=== PATIENT | male | born 1960 | race Caucasian/White ===

== ENCOUNTER 2017-01-01 12:35 | Day surgery (SDC) | payer MEDICARE, OTHER ==
[~2017-01-01 12:35] MED LIST: AMOX500T2 PO; DEXA.5 PO; GLUCTAB PO; HYDR-3580 PO; LEVE500 PO; LEVEMIR SC; Z.0.WALKERFRONT
[2017-01-01 13:29] VITALS: BP 144/93; PULSE 97; RESP 18; TEMP 99.1; O2SAT 99
--- NOTE | 2017-01-01 14:44 | RADRPT ---
EXAM DATE/TIME: 01/01/2017 13:07 [facility] COMPARISON: No previous studies available for comparison. EXTERNAL COMPARISON: [facility], US THYROID, Dec 17 2016. [facility], PET/CT - TUMOR WHOLE BODY, November. [facility], PET/CT - TUMOR WHOLE BODY, August 06, 2016. INDICATIONS : Right thyroid mass. MEDICAL HISTORY : Melanoma; metastatic. Diabetic. SURGICAL HISTORY : Left axillary lymphadenectomy. Right tib/fib ORIF. Brain surgery. ENCOUNTER: Initial ACUITY: 1 month PAIN SCORE: 7/10 LOCATION: Right neck ORGAN: Right thyroid. SPECIMENS: Three fine needle aspirate(s) submitted for pathologic evaluation. DEVICE: 22 gauge needle Post procedure scanning reveals no hematoma or other complication. The possibility does exist that the tissue obtained will be non-diagnostic. If the sample is non-jensen gnostic a repeat biopsy or surgical biopsy may need to be performed. TECHNIQUE: 1. Ultrasound guidance for needle biopsy. 2. Needle biopsy. The risks, benefits, and alternatives to ultrasound guided needle biopsy were explained to the patien t in detail including the risk of bleeding and infection. Written and verbal informed consent was ob tained. With the patient on the ultrasound table, images were obtained. The dominant right thyroid nodule wit hin the mid and lower pole was identified and targeted during the aspiration. This measures 4.5 x 3.8 x 3.0 cm. Overlying skin was prepped and draped in the usual sterile fashion and Lidocaine was utili zed as a local anesthetic. A needle was advanced into the identified target and the number of specimens as above obtained and enriquez bmitted for pathologic evaluation. The patient tolerated the procedure well and left the ultrasound suite in stable condition. CONCLUSION: Uncomplicated ultrasound guided fine needle aspiration of the right dominant thyroid nodule. Hiro Wallace Jr., MD on January 01, 2017 at 14:41 Board Certified Radiologist. This report was verified electronically.
[2017-01-01] MEDS ORDERED: SODIUM BICARBONATE 8.4% INJ 50 ML ONE (15:10)
[2017-01-01] MEDS ORDERED: LIDOCAINE HCL 1% PF 30 ML VIAL ONE (15:10)
== END 2017-01-01 15:00 | disposition home or self-care (01) ==
LOC: HRAD 12:35 → HRIP 12:36 → HRAD 15:00
PROVIDERS: ATTEND Specialist
DX: E04.1 Nontoxic single thyroid nodule (principal); E11.9 Type 2 diabetes mellitus without complications; C77.3 Secondary and unspecified malignant neoplasm of axilla and upper limb lymph nodes; C79.31 Secondary malignant neoplasm of brain; Z85.820 Personal history of malignant melanoma of skin
CPT/HCPCS: 10022; 76942; 88172; 88173; C1729

== ENCOUNTER 2017-04-25 13:56 | Inpatient (IN) | payer MEDICARE, OTHER ==
[~2017-04-25] VITALS: Ht 185.4 cm; Wt 68.0 kg
[2017-04-25] VITALS (8 sets, daily range): BP systolic 94–155; BP diastolic 66–102; PULSE 102–139; RESP 18–25; TEMP 98.3–99.2; O2SAT 95–100
[2017-04-25] MEDS ORDERED: PIPERACIL-TAZO 4.5 GM PREMIX 100 ML IV STA (14:04)
[2017-04-25] MEDS ORDERED: SODIUM CHLOR 0.9% 1000 ML INJ 400 ML IV ONE (14:04)
[2017-04-25] MEDS ORDERED: VANCOMYCIN INJ 1,000 MG in SODIUM CHLOR 0.9% 250 ML INJ 250 ML IV STA (14:04)
[2017-04-25] MEDS ORDERED: SODIUM CHLOR 0.9% 1000 ML INJ 1,000 ML IV ONE ×2 (14:04)
[2017-04-25] MEDS ORDERED: MARI5CAP PO (14:29)
[2017-04-25] MEDS ORDERED: REME15TA PO (14:29)
[2017-04-25] MEDS ORDERED: OXYC-259 PO ×2 (14:29)
[2017-04-25] MEDS ORDERED: METF-382 PO (14:29)
[2017-04-25] MEDS ORDERED: MEGE40S PO (14:29)
--- NOTE | 2017-04-25 14:36 | RADRPT ---
EXAM DATE/TIME: 04/25/2017 14:26 [facility] COMPARISON: CHEST SINGLE AP, July 24, 2016, 9:52. INDICATIONS : Fever. Congestion. MEDICAL HISTORY : None. SURGICAL HISTORY : None. ENCOUNTER: Initial ACUITY: 2 days PAIN SCORE: 7/10 LOCATION: Bilateral chest FINDINGS: A single view of the chest demonstrates the lungs to be symmetrically aerated without evidence of mas s, infiltrate or effusion. The cardiomediastinal contours are unremarkable. Old left rib fractures are again noted. CONCLUSION: No evidence of acute cardiopulmonary disease. Evelio Frankel MD on April 25, 2017 at 14:32 Board Certified Radiologist. This report was verified electronically.
[2017-04-25 14:40] LABS: AUTOMATED NEUTROPHIL # 10.4 TH/MM3 (1.8-7.7); BASOPHIL % 0.2 % (0.0-2.0); EOSINOPHIL # 0.1 TH/MM3 (0-0.4); EOSINOPHIL % 0.4 % (0.0-4.0); HEMATOCRIT 56.9 % (39.0-51.0); HEMO FLAGS DIFF FINAL; LYMPH % 13.5 % (9.0-44.0); LYMPHOCYTE # 1.9 TH/MM3 (1.0-4.8); MEAN CELL VOLUME 92.3 FL (80.0-100.0); MEAN CORPUSCULAR HEMOGLOBIN 29.1 PG (27.0-34.0); MEAN CORPUSCULAR HGB CONC 31.5 % (32.0-36.0); MONO % 11.4 % (0.0-8.0); NEUT % 74.5 % (16.0-70.0); PLATELET COUNT 150 TH/MM3 (150-450); RED BLOOD COUNT 6.17 MIL/MM3 (4.50-5.90); RED CELL DISTRIBUTION WIDTH 14.9 % (11.6-17.2)
[2017-04-25] MEDS ORDERED: MORPHINE SULFATE 4 MG/ML INJ IV PUSH ONE (14:45)
[2017-04-25 14:57] LABS: ANION GAP 24 MEQ/L (5-15); AST (GOT) 8 U/L (15-37); BICARBONATE LESS THAN 5.0 MEQ/L (21.0-32.0); BLOOD UREA NITROGEN 7 MG/DL (7-18); CHLORIDE 107 MEQ/L (98-107); GLOMERULAR FILTRATION RATE 71 ML/MIN (>89); POTASSIUM 4.3 MEQ/L (3.5-5.1); SODIUM (NA) 136 MEQ/L (136-145)
[2017-04-25 14:58] LABS: ALT (GPT) 17 U/L (12-78)
[2017-04-25 15:00] LABS: ALKALINE PHOSPHATASE 48 U/L (45-117); TOTAL BILIRUBIN ADULT 0.7 MG/DL (0.2-1.0)
[2017-04-25] MEDS ORDERED: SODIUM CHLOR 0.9% 1000 ML INJ 1,000 ML IV SCH ×2 (15:04→16:09)
[2017-04-25] MEDS ORDERED: DEXT 5%-NACL 0.9% 1000 ML INJ 1,000 ML IV SCH (15:04)
[2017-04-25] MEDS ORDERED: SODIUM BICARBONATE 8.4% SOLN 50 MEQ/50 ML VIAL IV PRN ×4 (15:15→16:15)
[2017-04-25] MEDS ORDERED: INSULIN REGULAR (IV INFUSION) 100 UNITS in SODIUM CHLORIDE 0.9% INJ 99 ML IV SCH ×2 (15:15→17:00)
[2017-04-25] MEDS ORDERED: POTASSIUM CHLOR 20 MEQ PREMIX 100 ML IV PRN ×11 (15:15→16:15)
[2017-04-25] MEDS ORDERED: POTASSIUM CHLOR 40 MEQ PREMIX 100 ML IV PRN ×4 (15:15→16:15)
[2017-04-25] MEDS ORDERED: INSULIN HUMAN REGULAR 1,000 UNITS/10 ML VIAL IV PUSH ONE (15:15)
[2017-04-25] MEDS ORDERED: SODIUM PHOSPHATE INJ 15 MMOL in SODIUM CHLORIDE 0.9% INJ 100 ML IV PRN ×2 (15:15→16:15)
[2017-04-25 15:26] LABS: BLOOD GAS BASE EXCESS -24.4 mmol/L (-2-2); BLOOD GAS CARBOXYHEMOGLOBIN 1.2 % (0-4); BLOOD GAS HCO3 4 mmol/L (22-26); BLOOD GAS METHEMOGLOBIN 0.8 % (0-2); BLOOD GAS O2 HGB SATURATION 96 % (90-100); BLOOD GAS PCO2 11 mmHg (38-42); BLOOD GAS PO2 118 mmHG (61-120); CRITICAL VALUE YES; FIO2 21 %; OXYGEN DEVICE RA; TEMP CORR TO 98.6
[2017-04-25 15:27] LABS: DRAW SITE LT RADIAL; NUMBER OF ARTERIAL PUNCTURES 1; STAT YES; ULNAR PULSE PRESENT
--- NOTE | 2017-04-25 15:33 | PD ---
HPI Chief Complaint: General Weakness Time Seen by Provider: 14:04 Travel History International Travel<30 days: No Contact w/Intl Traveler<30days: No Traveled to known affect area: No History of Present Illness HPI 56-year-old male came to the emergency room with history of back pain. Patient seems very debilitated and in moderate distress. He told me this has been going on for past 3 days. Patient was sent by car in 1991 and since then he has had back issues. No history of trauma as far as I know. No history of instrumentation in the recent past on the back. His rectal temperature was 99.5. Patient was tachycardic in 140s. Given his distress and mental status he was not a reliable historian. He kept saying that his is on her way and would give more information. [facility] Past Medical History Narrative Medical List of his past medical, surgical, social and family history was reviewed from the nursing note. Arthritis: No Asthma: No Anxiety: Yes Depression: Yes Heart Rhythm Problems: No Cancer: Yes (skin cancer) Cardiovascular Problems: No High Cholesterol: No Chest Pain: No Congestive Heart Failure: No COPD: No Cerebrovascular Accident: No Diabetes: Yes (LEVEMIR FLEX PEN) Patient Takes Glucophage: Yes Diminished Hearing: No Endocrine: Yes Gastrointestinal Disorders: No Genitourinary: No Headaches: Yes Hypertension: No Immune Disorder: No Implanted Vascular Access Dvce: Yes Musculoskeletal: Yes (CHRONIC NECK/BACK PAIN) Neurologic: Yes Psychiatric: Yes Reproductive: No Respiratory: Yes Migraines: No Seizures: No Sleep Apnea: No Past Surgical History Abdominal Surgery: Yes (skin cancer removed from abdomen) AICD: No Arteriovenous Shunt: No Body Medical Devices: right leg ayaka/screws Ear Surgery: No Endocrine Surgery: No Eye Surgery: No Genitourinary Surgery: No Gynecologic Surgery: No Insulin Pump: No Joint Replacement: No Neurologic Surgery: Yes (CRANIOTOMY ) Oral Surgery: Yes (TEETH PULLED) Pacemaker: No Other Surgery: Yes Social History Alcohol Use: No Tobacco Use: No Substance Use: No Allergies-Medications (Allergen,Severity, Reaction): Coded Allergies: No Known Allergies (Verified , 07/24/16) Comments No known drug allergies. Reported Meds & Prescriptions Reported Meds & Active Scripts Active Reported Metformin ER (Metformin HCl) 1,000 Mg Isabel 1,000 Mg PO BID Oxycontin (Oxycodone HCl) 10 Mg Tab 10 Mg PO DAILY (MIDDAY) Oxycontin (Oxycodone HCl) 10 Mg Tab 20 Mg PO BID IN THE AM & PM Megace Liq (Megestrol Acetate) 40 Mg/Ml Susp 400 Mg PO DAILY Remeron (Mirtazapine) 15 Mg Tab 15 Mg PO HS Marinol (Dronabinol) 5 Mg Cap 5 Mg PO BID Narrative Medication List of his home medications reviewed from the nursing note. Review of Systems Except as stated in HPI: all other systems reviewed are Neg Physical Exam Narrative GENERAL: Confused, moderate to significant distress, cachectic SKIN: Focused skin assessment warm/dry. HEAD: Atraumatic. Normocephalic. EYES: Pupils equal and round. No scleral icterus. No injection or drainage. ENT: No nasal bleeding or discharge. Dry mucous membrane, coated tongue, halitosis NECK: Trachea midline. No JVD. CARDIOVASCULAR: Regular rate and rhythm. Tachycardia. No murmur appreciated. RESPIRATORY: No accessory muscle use. Clear to auscultation. Breath sounds equal bilaterally. GASTROINTESTINAL: Abdomen soft, non-tender, nondistended. Hepatic and splenic margins not palpable. MUSCULOSKELETAL: No obvious deformities. No clubbing. No cyanosis. No edema. Point tenderness at T10 level. NEUROLOGICAL: Confused, GCS of 14. No obvious cranial nerve deficits. Motor grossly within normal limits. Normal speech. PSYCHIATRIC: Appropriate mood and affect; insight and judgment normal. Data Data Last Documented VS Vital Signs Date Time Temp Pulse Resp B/P Pulse Ox O2 Delivery O2 Flow Rate FiO2 04/25/17 14:50 130 18 155/102 95 Nasal Cannula 2 04/25/17 14:10 99.2 Orders Complete Blood Count With Diff (04/25/17 14:04) Comprehensive Metabolic Panel (04/25/17 14:04) Lactic Acid Sepsis Protocol (04/25/17 14:04) Urinalysis - C+S If Indicated (04/25/17 14:04) Blood Culture (04/25/17 14:04) Chest, Single Ap (04/25/17 14:04) Blood Glucose (04/25/17 14:04) Ecg Monitoring (04/25/17 14:04) Iv Access Insert/Monitor (04/25/17 14:04) Oximetry (04/25/17 14:04) Oxygen Administration (04/25/17 14:04) Vancomycin Inj (Vancomycin Inj) (04/25/17 14:04) Piperacil-Tazo 4.5 Gm Premix (Zosyn 4.5 (04/25/17 14:04) Sodium Chlor 0.9% 1000 Ml Inj (Ns 1000 M (04/25/17 14:04) Sodium Chlor 0.9% 1000 Ml Inj (Ns 1000 M (04/25/17 14:04) Sodium Chlor 0.9% 1000 Ml Inj (Ns 1000 M (04/25/17 14:04) Electrocardiogram (04/25/17 ) Ct Thor Spine W Iv Contrast (04/25/17 ) Morphine Inj (Morphine Inj) (04/25/17 14:45) Arterial Blood Gas (Abg) (04/25/17 ) Charger Tester / Telemetry [id number].[id number] (04/25/17 15:04) ^ Insert Iv (04/25/17 15:04) Diet Npo (04/25/17 Dinner) Sodium Chlor 0.9% 1000 Ml Inj (Ns 1000 M (04/25/17 15:04) Dext 5%-Nacl 0.9% 1000 Ml Inj (D5w-Ns 10 (04/25/17 15:04) Insulin Human Regular Inj (Novolin R Inj (04/25/17 15:15) Insulin Regular (Iv Infusion) (Novolin R (04/25/17 15:15) Potassium Chlor 40 Meq Premix (Kcl 40 Me (04/25/17 15:15) Potassium Chlor 40 Meq Premix (Kcl 40 Me (04/25/17 15:15) Potassium Chlor 20 Meq Premix (Kcl 20 Me (04/25/17 15:15) Potassium Chlor 20 Meq Premix (Kcl 20 Me (04/25/17 15:15) Potassium Chlor 20 Meq Premix (Kcl 20 Me (04/25/17 15:15) Potassium Chlor 20 Meq Premix (Kcl 20 Me (04/25/17 15:15) Potassium Chlor 20 Meq Premix (Kcl 20 Me (04/25/17 15:15) Potassium Chlor 20 Meq Premix (Kcl 20 Me (04/25/17 15:15) Sodium Bicarbonate 8.4% Inj (Sodium Bica (04/25/17 15:15) Sodium Bicarbonate 8.4% Inj (Sodium Bica (04/25/17 15:15) Sodium Phosphate Inj (Sodium Phosphate I (04/25/17 15:15) Hemoglobin (Hgb) A1c (04/25/17 15:04) Basic Metabolic Panel (Bmp) (04/25/17 20:04) Basic Metabolic Panel (Bmp) (04/26/17 02:04) Basic Metabolic Panel (Bmp) (04/26/17 08:04) Magnesium (Mg) (04/25/17 20:04) Magnesium (Mg) (04/26/17 02:04) Magnesium (Mg) (04/26/17 08:04) Phosphorus (Po4) (04/25/17 20:04) Phosphorus (Po4) (04/26/17 02:04) Phosphorus (Po4) (04/26/17 08:04) Beta Hydroxybutyrate (Acetone) (04/26/17 02:04) Admit Order (Ed Use Only) (04/25/17 15:33) Labs Laboratory Tests Test 04/25/17 04/25/17 04/25/17 14:06 14:16 15:18 Lactic Acid Level 3.9 mmol/L White Blood Count 14.0 TH/MM3 Red Blood Count 6.17 MIL/MM3 Hemoglobin 17.9 GM/DL Hematocrit 56.9 % Mean Corpuscular Volume 92.3 FL Mean Corpuscular Hemoglobin 29.1 PG Mean Corpuscular Hemoglobin 31.5 % Concent Red Cell Distribution Width 14.9 % Platelet Count 150 TH/MM3 Mean Platelet Volume 8.5 FL Neutrophils (%) (Auto) 74.5 % Lymphocytes (%) (Auto) 13.5 % Monocytes (%) (Auto) 11.4 % Eosinophils (%) (Auto) 0.4 % Basophils (%) (Auto) 0.2 % Neutrophils # (Auto) 10.4 TH/MM3 Lymphocytes # (Auto) 1.9 TH/MM3 Monocytes # (Auto) 1.6 TH/MM3 Eosinophils # (Auto) 0.1 TH/MM3 Basophils # (Auto) 0.0 TH/MM3 CBC Comment DIFF FINAL Differential Comment Sodium Level 136 MEQ/L Potassium Level 4.3 MEQ/L Chloride Level 107 MEQ/L Carbon Dioxide Level LESS THAN 5.0 MEQ/L Anion Gap 24 MEQ/L Blood Urea Nitrogen 7 MG/DL Creatinine 1.07 MG/DL Estimat Glomerular Filtration 71 ML/MIN Rate Random Glucose 340 MG/DL Calcium Level 10.3 MG/DL Total Bilirubin 0.7 MG/DL Aspartate Amino Transf 8 U/L (AST/SGOT) Alanine Aminotransferase 17 U/L (ALT/SGPT) Alkaline Phosphatase 48 U/L Total Protein 7.7 GM/DL Albumin 3.9 GM/DL Blood Gas Puncture Site LT RADIAL Blood Gas Patient Temperature 98.6 Blood Gas HCO3 4 mmol/L Blood Gas Base Excess -24.4 mmol/L Blood Gas Oxygen Saturation 96 % Arterial Blood pH 7.15 Arterial Blood Partial 11 mmHg Pressure CO2 Arterial Blood Partial 118 mmHG Pressure O2 Arterial Blood Oxygen Content 23.0 Vol % Arterial Blood 1.2 % Carboxyhemoglobin Arterial Blood Methemoglobin 0.8 % Blood Gas Hemoglobin 17.0 G/DL Oxygen Delivery Device RA Blood Gas Inspired Oxygen 21 % MDM Medical Decision Making Medical Screen Exam Complete: Yes Emergency Medical Condition: Yes Medical Record Reviewed: Yes Interpretation(s) Twelve-lead EKG was reviewed by me. Normal sinus rhythm, normal axis, tachycardia. Heart rate of 1 45 bpm. Differential Diagnosis Sepsis, dehydration, discitis, osteomyelitis, UTI, pneumonia Narrative Course 3:32 PM blood test results of back and patient is severely metabolic acidotic. Blood gas also Percocet. Chest x-rays within normal limit. I've ordered a CT scan of his thoracic spine with IV contrast to rule out any infection. Blood test is also suggestive of DKA. Patient has a single peripheral IV access at this point. He is a difficult IV peripheral access. I discussed with him about the need for central line and patient has given me a verbal consent. His in the room and updated about the condition. Patient will require to be admitted to the ICU. I've ordered IV vancomycin and Zosyn for broad spectrum coverage. All her questions were answered to the best of my ability. I spoke with Dr. Merino from ICU who has accepted the case. Critical Care Narrative Aggregate critical care time was 75 minutes. Time to perform other separately billable procedures was not included in the critical care time. My time did not include minutes spent treating any other patients simultaneously or on activities that did not directly contribute to the patient's treatment. The services I provided to this patient were to treat and/or prevent clinically significant deterioration that could result in: Metabolic acidosis, lactic acidosis, sepsis, altered mental status I provided critical care services requiring my management, as noted below: Chart data review, documentation time, medication orders and management, vital sign assessments/reviewing monitor data, ordering and reviewing lab tests, ordering and interpreting/reviewing x-rays and diagnostic studies, care of the patient and discussion of the patient with the admitting physicians. Procedures Procedure Narrative CENTRAL VENOUS LINE: The site was prepped with Betadine and sterilely draped. It was infiltrated with 1% lidocaine plain. The deep vein was cannulated using normal Seldinger technique. A triple lumen central line was placed in the right IJ site and secured with simple interrupted suture. The site was sterilely dressed. The patient tolerated the procedure well. Emergency department US guided peripheral IV was performed with patient consent. Linear probe was used in the transverse views of the peripheral vein to assist with vascular access. The central line was ultrasound guided. EKG Prior to Arrival: No Physician Communication Physician Communication Dr. Merino Diagnosis Primary Impression: Sepsis Qualified Code: A41.9 - Sepsis, due to unspecified organism Additional Impressions: Altered mental status Qualified Code: R41.0 - Disorientation Lactic acidosis Dehydration DKA (diabetic ketoacidoses) Qualified Code: E13.10 - Diabetic ketoacidosis without coma associated with other specified diabetes mellitus Metabolic acidosis Admitting Information Admitting Physician Requests: Admit Lizzeth Romero MD Apr 25, 2017 15:[address] Merino from ICU who has accepted the case. Critical Care Narrative Aggregate critical care time was 75 minutes. Time to perform other separately billable procedures was not included in the critical care time. My time did not include minutes spent treating any other patients simultaneously or on activities that did not directly contribute to the patient's treatment. The services I provided to this patient were to treat and/or prevent clinically significant deterioration that could result in: Metabolic acidosis, lactic acidosis, sepsis, altered mental status I provided critical care services requiring my management, as noted below: Chart data review, documentation time, medication orders and management, vital sign assessments/reviewing monitor data, ordering and reviewing lab tests, ordering and interpreting/reviewing x-rays and diagnostic studies, care of the patient and discussion of the patient with the admitting physicians. Procedures Procedure Narrative CENTRAL VENOUS LINE: The site was prepped with Betadine and sterilely draped. It was infiltrated with 1% lidocaine plain. The deep vein was cannulated using normal Seldinger technique. A triple lumen central line was placed in the right IJ site and secured with simple interrupted suture. The site was sterilely dressed. The patient tolerated the procedure well. Emergency department US guided peripheral IV was performed with patient consent. Linear probe was used in the transverse views of the peripheral vein to assist with vascular access. The central line was ultrasound guided. EKG Prior to Arrival: No Physician Communication Physician Communication Dr. Merino Diagnosis Primary Impression: Sepsis Qualified Code: A41.9 - Sepsis, due to unspecified organism Additional Impressions: Altered mental status Qualified Code: R41.0 - Disorientation Lactic acidosis Dehydration DKA (diabetic ketoacidoses) Qualified Code: E13.10 - Diabetic ketoacidosis without coma associated with other specified diabetes mellitus Metabolic acidosis Admitting Information Admitting Physician Requests: Admit Lizzeth Romero MD Apr 25, 2017 15:33
[2017-04-25] MEDS ORDERED: LIDOCAINE HCL 1% 50 ML VIAL INFIL ONE (16:00)
[2017-04-25] MEDS ORDERED: MISCELLANEOUS NURSING INFORMATION XX SCH (16:15)
[2017-04-25] MEDS ORDERED: CHLORHEXIDINE GLUCONATE 2 % 1 PACK (2 CLOTHS) TOP PRN (16:15)
[2017-04-25] MEDS ORDERED: Vancomycin Consult Pharmacy 1 EA OTHER SCH (16:15)
[2017-04-25 16:29] LABS: LACTIC ACID GHOST NOT REPORTABLE
--- NOTE | 2017-04-25 16:34 | RADRPT ---
EXAM DATE/TIME: 04/25/2017 16:26 [facility] COMPARISON: CHEST SINGLE AP, April 25, 2017, 14:26. INDICATIONS : Evaluate for central line placement. MEDICAL HISTORY : None. SURGICAL HISTORY : None. ENCOUNTER: Subsequent ACUITY: 1 day PAIN SCORE: 0/10 LOCATION: chest FINDINGS: A single view of the chest demonstrates right central line in superior vena cava. Heart size normal. Tortuous aorta. Remote left rib fractures. No focal consolidation or significant effusion. No pneumot horax. CONCLUSION: 1. Right central line in superior vena cava. No pneumothorax. No focal consolidation. Terence Fletcher MD on April 25, 2017 at 16:30 Board Certified Radiologist. This report was verified electronically.
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
[2017-04-25] MEDS ORDERED: IOHEXOL 350 MG/ML 10 ML VIAL (for RAD DIAG) IV ONE (17:17)
[2017-04-25 17:44] LABS: BETA-HYDROXYBUTYRATE 8.79 MMOL/L (0.00-0.39)
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
[2017-04-25 20:40] LABS: ANION GAP 19 MEQ/L (5-15); BICARBONATE 8.3 MEQ/L (21.0-32.0); BLOOD UREA NITROGEN 5 MG/DL (7-18); CHLORIDE 112 MEQ/L (98-107); GLOMERULAR FILTRATION RATE 107 ML/MIN (>89); MAGNESIUM 1.8 MG/DL (1.5-2.5); POTASSIUM 3.5 MEQ/L (3.5-5.1); SODIUM (NA) 139 MEQ/L (136-145)
[2017-04-25] MEDS: DEXT 5%-NACL 0.9% 1000 ML INJ 1,000 ML IV SCH (20:40)
[2017-04-25] MEDS: SODIUM CHLOR 0.9% 1000 ML INJ 1,000 ML IV SCH (20:40)
[2017-04-25] MEDS: MIRTAZAPINE 15 MG TAB PO SCH (20:41)
[2017-04-25] MEDS: PIPERACIL-TAZO 4.5 GM PREMIX 100 ML IV SCH (21:27)
[2017-04-25] MEDS: POTASSIUM CHLOR 20 MEQ PREMIX 100 ML IV PRN ×2 (21:28→22:50)
[2017-04-26] VITALS (15 sets, daily range): BP systolic 104–120; BP diastolic 67–74; PULSE 99–109; RESP 16–24; TEMP 98–100.1; O2SAT 95–100
[2017-04-26 00:31] LABS: BLOOD, URINE TRACE (NEG); GLUCOSE,URINE 1000 mg/dL (NEG); KETONE, URINE 150 mg/dL (NEG); MUCUS URINE FEW /lpf (OCC); NITRITE,URINE NEG (NEG); SQUAMOUS EPITHELIAL CELL URINE <1 /hpf (0-5); URIC ACID CRYSTALS, URINE RARE /hpf; URINE COLOR LIGHT-YELLOW (YELLW/STRAW)
[2017-04-26 00:33] LABS: COMMENT (UR) CATH-CULT NOT IND; CULTURE IF INDICATED CATH CULTURE NOT IND
[2017-04-26] MEDS: SODIUM CHLOR 0.9% 1000 ML INJ 1,000 ML IV SCH ×5 (01:54→15:05)
[2017-04-26] MEDS: DEXT 5%-NACL 0.9% 1000 ML INJ 1,000 ML IV SCH (01:54)
[2017-04-26] MEDS: VANCOMYCIN 1,500 MG/NS 500 ML IV SCH ×4 (01:54→14:19)
[2017-04-26] MEDS ORDERED: VANCOMYCIN 1,000 MG/NS 250 ML IV SCH ×2 (02:00)
[2017-04-26 02:29] LABS: BICARBONATE 15.1 MEQ/L (21.0-32.0); MAGNESIUM 1.7 MG/DL (1.5-2.5); POTASSIUM 3.5 MEQ/L (3.5-5.1)
[2017-04-26 02:33] LABS: BETA-HYDROXYBUTYRATE 1.01 MMOL/L (0.00-0.39)
[2017-04-26] MEDS: D5-1/2 NS + KCL 20 MEQ INJ 1,000 ML IV SCH ×2 (03:01→11:04)
[2017-04-26] MEDS: PIPERACIL-TAZO 4.5 GM PREMIX 100 ML IV SCH ×4 (03:02→20:08)
[2017-04-26] MEDS: CHLORHEXIDINE GLUCONATE 2 % 1 PACK (2 CLOTHS) TOP SCH (03:02)
[2017-04-26] MEDS: POTASSIUM CHLOR 20 MEQ PREMIX 100 ML IV PRN ×2 (03:02→03:57)
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
[2017-04-26 08:32] LABS: BICARBONATE 14.2 MEQ/L (21.0-32.0); MAGNESIUM 1.6 MG/DL (1.5-2.5); POTASSIUM 3.1 MEQ/L (3.5-5.1)
[2017-04-26 08:54] LABS: BASOPHIL % 0.5 % (0.0-2.0); EOSINOPHIL % 0.7 % (0.0-4.0); HEMATOCRIT 40.8 % (39.0-51.0); LYMPH % 9.3 % (9.0-44.0); LYMPHOCYTE # 0.5 TH/MM3 (1.0-4.8); MEAN CELL VOLUME 86.8 FL (80.0-100.0); MEAN CORPUSCULAR HEMOGLOBIN 30.1 PG (27.0-34.0); MEAN CORPUSCULAR HGB CONC 34.7 % (32.0-36.0); MONO % 17.1 % (0.0-8.0); NEUT % 72.4 % (16.0-70.0); PLATELET COUNT 98 TH/MM3 (150-450); RED CELL DISTRIBUTION WIDTH 14.3 % (11.6-17.2); WHITE BLOOD COUNT 5.5 TH/MM3 (4.0-11.0)
[2017-04-26] MEDS ORDERED: HEPARIN SODIUM - SQ 10,000 UNITS/ML VIAL SQ SCH (09:00)
[2017-04-26 09:24] LABS: HEMO FLAGS AUTO DIFF
[2017-04-26 09:41] LABS: BANDS 34 % (0-6); METAMYELOCYTES 2 % (0-1); NEUTROPHIL # MANUAL DIFF 4.1 TH/MM3 (1.8-7.7); POLYS (SEG NEUTROPHILS) 38 % (16-70); WBC DIFF SAMPLE 100
[2017-04-26 09:42] LABS: OVALOCYTES 1+ (NORMAL); PLATELET ESTIMATE SMEAR LOW (NORMAL); PLATELET MORPHOLOGY NORMAL (NORMAL); SCAN/DIFF FINAL DIFF MANUAL
--- NOTE | 2017-04-26 09:43 | EKG ---
Date Performed: 04/25/2017 Time Performed: 14:15:49 PTAGE: 56 years EKG: SINUS TACHYCARDIA, POSSIBLE ATRIAL FLUTTER NONSPECIFIC ST & T-WAVE ABNORMALITY ABNORMAL RHY THM ECG INTERPRETATION BASED ON A DEFAULT AGE OF 40 YEARS NO PREVIOUS TRACING DOCTOR: Lester Shabazz Interpretating Date/Time 04/26/2017 09:35:27
[2017-04-26] MEDS: MEGESTROL ACETATE SUSP 400 MG/10 ML CUP PO SCH (09:59)
[2017-04-26] MEDS: PANTOPRAZOLE SODIUM 40 MG VIAL IV PUSH SCH (10:00)
[2017-04-26] MEDS ORDERED: SODIUM BICARBONATE 8.4% INJ 50 MEQ/50 ML SYR IV PUSH ONE (10:00)
[2017-04-26 11:25] LABS: BLOOD GAS BASE EXCESS -9.8 mmol/L (-2-2); BLOOD GAS CARBOXYHEMOGLOBIN 1.8 % (0-4); BLOOD GAS HCO3 14 mmol/L (22-26); BLOOD GAS METHEMOGLOBIN 1.1 % (0-2); BLOOD GAS O2 HGB SATURATION 97 % (90-100); BLOOD GAS OXYGEN CONTENT 18.7 Vol % (12.0-20.0); BLOOD GAS PCO2 20 mmHg (38-42); BLOOD GAS PO2 119 mmHg (61-120); BLOOD GAS TOTAL HGB 13.7 G/DL (12.0-16.0); TEMP CORR TO 98.6
[2017-04-26 11:26] LABS: CRITICAL VALUE YES; DRAW SITE RT BRACHIAL; FIO2 28 %; LITER FLOW 2 L/M; NUMBER OF ARTERIAL PUNCTURES 1; OXYGEN DEVICE NASAL CANNULA; STAT NO; ULNAR PULSE PRESENT
[2017-04-26] MEDS ORDERED: IOHEXOL 350 MG/ML 10 ML VIAL (for RAD DIAG) IV ONE (13:43)
--- NOTE | 2017-04-26 13:50 | RADRPT ---
EXAM DATE/TIME: 04/26/2017 13:04 [facility] COMPARISON: CT ABDOMEN & PELVIS W CONTRAST, July 29, 2016, 18:26. INDICATIONS : Abscess IV CONTRAST: 97 cc Omnipaque 350 (iohexol) IV RADIATION DOSE: 28.51 CTDIvol (mGy) MEDICAL HISTORY : Chronic obstructive pulmonary disease. Diabetic SURGICAL HISTORY : None. ENCOUNTER: Initial ACUITY: 1 day PAIN SCALE: 6/10 LOCATION: Bilateral middle back TECHNIQUE: Volumetric scanning of the lumbar spine was performed. Multiplanar reconstructions in the sagittal, coronal and oblique axial planes were performed. Using automated exposure control and adjustment of the mA and/or kV according to patient size, radiation dose was kept as low as reasonably achievable t o obtain optimal diagnostic quality images. FINDINGS: A few millimeters of degenerative anterolisthesis are seen at L4/L5. Lumbar spine alignment is normal otherwise. Vertebral bodies have normal height. No fluid collections are demonstrated. No abnormal e nhancement. Small posterior disc osteophyte seen at T12/L1 without significant foraminal or spinal stenosis. L3-L4: Mild disc space narrowing. There is a small, broad posterior disc osteophyte complex and mild/moderat e bilateral facet osteoarthritis. There is mild right and moderate left foraminal stenosis. CONCLUSION: Multilevel lumbar spine degenerative changes as detailed above. Associated grade 1 degenerative anter olisthesis at L4/L5. No fracture or acute appearing malalignment. No abscess or other acute inflammat ory changes. Evelio Frankel MD on April 26, 2017 at 13:42 Board Certified Radiologist. This report was verified electronically.
[2017-04-26 14:50] LABS: BICARBONATE 19.5 MEQ/L (21.0-32.0); MAGNESIUM 1.7 MG/DL (1.5-2.5); POTASSIUM 3.7 MEQ/L (3.5-5.1)
[2017-04-26 14:51] LABS: BETA-HYDROXYBUTYRATE 0.62 MMOL/L (0.00-0.39)
[2017-04-26] MEDS ORDERED: DEXTROSE 50% IN WATER 50 ML VIAL(D50) IV PRN (15:00)
[2017-04-26] MEDS: INSULIN DETEMIR 100 UNITS/ML VIAL SQ SCH ×2 (15:00→20:10)
[2017-04-26] MEDS ORDERED: GLUCAGON 1 MG/ML VIAL OTHER PRN (15:00)
[2017-04-26 15:29] LABS: AUTOMATED NEUTROPHIL # 3.5 TH/MM3 (1.8-7.7); BASOPHIL % 0.4 % (0.0-2.0); EOSINOPHIL % 0.7 % (0.0-4.0); HEMATOCRIT 39.1 % (39.0-51.0); LYMPH % 11.5 % (9.0-44.0); LYMPHOCYTE # 0.6 TH/MM3 (1.0-4.8); MEAN CELL VOLUME 86.6 FL (80.0-100.0); MEAN CORPUSCULAR HEMOGLOBIN 29.1 PG (27.0-34.0); MEAN CORPUSCULAR HGB CONC 33.7 % (32.0-36.0); MONO % 16.9 % (0.0-8.0); NEUT % 70.5 % (16.0-70.0); PLATELET COUNT 88 TH/MM3 (150-450); RED BLOOD COUNT 4.52 MIL/MM3 (4.50-5.90)
[2017-04-26 15:32] LABS: HEMO FLAGS AUTO DIFF
[2017-04-26 15:41] LABS: APTT (PATIENT) 29.7 SEC (24.3-30.1); INTERNATIONAL NORMALIZED RATIO 1.2 RATIO; PROTHROMBIN TIME - PATIENT 13.5 SEC (9.8-11.6)
[2017-04-26] MEDS: INSULIN NovoLIN REGULAR SUPPLEMENTAL SCALE SQ SCH ×3 (16:00→23:29)
[2017-04-26 16:04] LABS: BANDS 21 % (0-6); BASOPHILS 1 % (0-2); EOSINOPHILS 1 % (0-4); NEUTROPHIL # MANUAL DIFF 3.9 TH/MM3 (1.8-7.7); POLYS (SEG NEUTROPHILS) 57 % (16-70); WBC DIFF SAMPLE 100
[2017-04-26 16:05] LABS: OVALOCYTES 1+ (NORMAL); PLATELET ESTIMATE SMEAR LOW (NORMAL); PLATELET MORPHOLOGY NORMAL (NORMAL); SCAN/DIFF FINAL DIFF MANUAL
[2017-04-26] MEDS: MIRTAZAPINE 15 MG TAB PO SCH (20:09)
[2017-04-27] VITALS (13 sets, daily range): BP systolic 109–133; BP diastolic 70–90; PULSE 93–104; RESP 15–25; TEMP 96.3–99; O2SAT 96–100
[2017-04-27] MEDS ORDERED: PHARMACY ORDERED LAB-VANCO TROUGH ONE (01:45)
[2017-04-27] MEDS: VANCOMYCIN 1,500 MG/NS 500 ML IV SCH ×4 (01:49→15:41)
[2017-04-27] MEDS: SODIUM CHLOR 0.9% 1000 ML INJ 1,000 ML IV SCH ×2 (01:49→15:42)
[2017-04-27] MEDS: INSULIN NovoLIN REGULAR SUPPLEMENTAL SCALE SQ SCH ×5 (04:00→21:33)
[2017-04-27] MEDS: CHLORHEXIDINE GLUCONATE 2 % 1 PACK (2 CLOTHS) TOP SCH (04:00)
[2017-04-27] MEDS: PIPERACIL-TAZO 4.5 GM PREMIX 100 ML IV SCH ×4 (05:09→21:26)
[2017-04-27 05:29] LABS: BASOPHIL % 0.4 % (0.0-2.0); EOSINOPHIL # 0.1 TH/MM3 (0-0.4); EOSINOPHIL % 1.4 % (0.0-4.0); HEMATOCRIT 37.8 % (39.0-51.0); LYMPH % 17.2 % (9.0-44.0); LYMPHOCYTE # 0.8 TH/MM3 (1.0-4.8); MEAN CELL VOLUME 85.5 FL (80.0-100.0); MEAN CORPUSCULAR HEMOGLOBIN 29.5 PG (27.0-34.0); MEAN CORPUSCULAR HGB CONC 34.6 % (32.0-36.0); MONO % 15.3 % (0.0-8.0); NEUT % 65.7 % (16.0-70.0); PLATELET COUNT 74 TH/MM3 (150-450); RED BLOOD COUNT 4.42 MIL/MM3 (4.50-5.90); RED CELL DISTRIBUTION WIDTH 14.2 % (11.6-17.2); WHITE BLOOD COUNT 4.5 TH/MM3 (4.0-11.0)
[2017-04-27 06:02] LABS: HEMO FLAGS AUTO DIFF
[2017-04-27 07:41] LABS: BANDS 26 % (0-6); EOSINOPHILS 1 % (0-4); NEUTROPHIL # MANUAL DIFF 3.1 TH/MM3 (1.8-7.7); POLYS (SEG NEUTROPHILS) 43 % (16-70); WBC DIFF SAMPLE 100
[2017-04-27 07:42] LABS: OVALOCYTES 1+ (NORMAL); PLATELET ESTIMATE SMEAR LOW (NORMAL); PLATELET MORPHOLOGY NORMAL (NORMAL); SCAN/DIFF FINAL DIFF MANUAL
[2017-04-27] MEDS: MEGESTROL ACETATE SUSP 400 MG/10 ML CUP PO SCH (08:15)
[2017-04-27] MEDS: PANTOPRAZOLE SODIUM 40 MG VIAL IV PUSH SCH (08:15)
[2017-04-27] MEDS: INSULIN DETEMIR 100 UNITS/ML VIAL SQ SCH ×2 (08:16→21:34)
--- NOTE | 2017-04-27 14:43 | HHI.PR ---
Subjective Remarks Patient has no acute complaints today. Objective Vital Signs Date Time Temp Pulse Resp B/P Pulse Ox O2 Delivery O2 Flow Rate FiO2 04/27/17 12:00 98.6 104 21 109/70 99 04/27/17 12:00 104 04/27/17 10:00 98 04/27/17 09:21 97 21 04/27/17 08:00 98.9 97 15 127/87 100 04/27/17 08:00 97 04/27/17 06:00 93 04/27/17 04:00 98.9 100 25 120/75 98 04/27/17 04:00 100 04/27/17 02:00 100 04/27/17 00:00 99.0 104 19 125/77 04/27/17 00:00 104 04/26/17 22:00 107 04/26/17 20:31 98 21 04/26/17 20:00 100.1 102 17 120/74 95 04/26/17 20:00 102 04/26/17 18:00 104 04/26/17 16:00 99.8 100 16 104/67 100 04/26/17 16:00 100 I/O 04/26/17 04/26/17 04/26/17 04/27/17 04/27/17 04/27/17 06:59 14:59 22:59 06:59 14:59 22:59 Intake Total 2657 ml 655 ml 1288 ml 982 ml Output Total 1250 ml 1275 ml 1550 ml 1350 ml 1350 ml Balance 1407 ml -620 ml -262 ml -368 ml -1350 ml Intake IV Total 2657 ml 655 ml 1288 ml 982 ml Output Urine Total 1250 ml 1275 ml 1550 ml 1350 ml 1350 ml # Bowel Movements 0 1 Result Diagram: 04/27/17 0430 04/26/17 1410 A/P Problem List: (1) Sepsis ICD Code: A41.9 (2) Metabolic acidosis ICD Code: E87.2 (3) DKA (diabetic ketoacidoses) ICD Code: E13.10 (4) Altered mental status ICD Code: R41.82 (5) Lactic acidosis ICD Code: E87.2 (6) Dehydration ICD Code: E86.0 Assessment and Plan Assessment and Plan 56-year-old male admitted with sepsis, DKA, and dehydration. Thrombocytopenia Slow downward trend and thrombocytes through time Patient is on heparin Stop heparin in case his syndrome is present/starting Dehydration Acute kidney injury Renal function improving Follow renal function Continue IV hydration Sepsis Leukocytosis Resolved Fever Continue vancomycin Follow blood cultures May be reactive as leukocytosis has resolved Urinalysis is negative Chest x-ray is negative DKA Diabetes mellitus DKA Resolved Tight blood sugar control Insulin sliding scale Diabetic diet Continue Levemir metabolic acidosis. Lactic acidosis Resolved Hypophosphatemia Resolved Follow phosphorus level Chronic back pain Continue baseline pain medications GI prophylaxis Protonix DVT prophylaxis SCDs due to risk of HIT syndrome Lines: RIght IJ CVP placed 04/25 peripheral IV Problem Qualifiers (1) Sepsis: Qualified Code: A41.9 - Sepsis, due to unspecified organism (2) DKA (diabetic ketoacidoses): Qualified Code: E13.10 - Diabetic ketoacidosis without coma associated with other specified diabetes mellitus (3) Altered mental status: Qualified Code: R41.0 - Disorientation Salomon Jackson MD Apr 27, 2017 14:43
[2017-04-27] MEDS: MIRTAZAPINE 15 MG TAB PO SCH (21:34)
[2017-04-27 22:13] LABS: HEMOGLOBIN A1a 0.9 %; HEMOGLOBIN A1b 2.4 %; HEMOGLOBIN Ao 80.1 %; HEMOGLOBIN LA1C 2.1 %; HEMOGLOBIN P3 4.1 %
[2017-04-28] VITALS (7 sets, daily range): BP systolic 95–124; BP diastolic 64–83; PULSE 82–98; RESP 18; TEMP 96.8–99.4; O2SAT 92–100
[2017-04-28] MEDS: INSULIN NovoLIN REGULAR SUPPLEMENTAL SCALE SQ SCH ×6 (01:05→20:21)
[2017-04-28] MEDS: VANCOMYCIN 1,500 MG/NS 500 ML IV SCH ×4 (01:06→14:34)
[2017-04-28] MEDS: CHLORHEXIDINE GLUCONATE 2 % 1 PACK (2 CLOTHS) TOP SCH ×2 (04:00→23:42)
[2017-04-28 04:40] LABS: HEMATOCRIT 36.7 % (39.0-51.0); MEAN CELL VOLUME 85.1 FL (80.0-100.0); MEAN CORPUSCULAR HEMOGLOBIN 29.8 PG (27.0-34.0); MEAN CORPUSCULAR HGB CONC 35.1 % (32.0-36.0); PLATELET COUNT 82 TH/MM3 (150-450); RED BLOOD COUNT 4.31 MIL/MM3 (4.50-5.90); RED CELL DISTRIBUTION WIDTH 14.4 % (11.6-17.2); WHITE BLOOD COUNT 5.6 TH/MM3 (4.0-11.0)
[2017-04-28 04:57] LABS: REVIEW FLAG FINAL
[2017-04-28 04:59] LABS: BICARBONATE 16.1 MEQ/L (21.0-32.0); MAGNESIUM 1.7 MG/DL (1.5-2.5)
[2017-04-28 05:02] LABS: POTASSIUM 2.5 MEQ/L (3.5-5.1)
[2017-04-28] MEDS: PIPERACIL-TAZO 4.5 GM PREMIX 100 ML IV SCH ×4 (05:18→22:43)
[2017-04-28] MEDS: SODIUM CHLOR 0.9% 1000 ML INJ 1,000 ML IV SCH ×2 (05:18→15:55)
[2017-04-28] MEDS ORDERED: POTASSIUM BICARBONATE 25 MEQ EFFERVESCENT TAB PO ONE (06:00)
[2017-04-28] MEDS: POTASSIUM CHLOR 20 MEQ PREMIX 100 ML IV SCH ×2 (06:18→08:29)
[2017-04-28] MEDS: INSULIN DETEMIR 100 UNITS/ML VIAL SQ SCH ×2 (08:25→20:21)
[2017-04-28] MEDS: PANTOPRAZOLE SODIUM 40 MG VIAL IV PUSH SCH (08:27)
[2017-04-28] MEDS: MEGESTROL ACETATE SUSP 400 MG/10 ML CUP PO SCH (08:27)
--- NOTE | 2017-04-28 10:09 | HHI.PR ---
Subjective Remarks placed today. Patient reports she was walking prior to his illness. We discussed starting physical therapy today. Potassium is low this morning. Objective Vital Signs Date Time Temp Pulse Resp B/P Pulse Ox O2 Delivery O2 Flow Rate FiO2 04/28/17 07:56 98.9 85 18 95/64 97 04/28/17 07:19 Room Air 04/27/17 23:16 98.5 93 18 109/77 96 04/27/17 20:33 98 21 04/27/17 19:20 99.0 99 18 114/76 99 04/27/17 16:00 96.7 102 18 123/87 99 04/27/17 12:55 96.3 100 18 133/90 100 04/27/17 12:00 98.6 104 21 109/70 99 04/27/17 12:00 104 I/O 04/27/17 04/27/17 04/27/17 04/28/17 04/28/17 04/28/17 07:00 15:00 23:00 07:00 15:00 23:00 Intake Total 982 ml 720 ml 480 ml Output Total 1350 ml 1350 ml 1350 ml 1000 ml Balance -368 ml -1350 ml -630 ml -520 ml Intake Oral 720 ml 480 ml IV Total 982 ml Output Urine Total 1350 ml 1350 ml 1350 ml 1000 ml # Bowel Movements 1 1 0 Result Diagram: 04/28/17 0355 04/28/17 0355 Objective Remarks GENERAL: NAD, A&Ox3, global weakness HEAD: Normocephalic. NECK: Supple, trachea midline. No lymphadenopathy. EYES: No scleral icterus. No injection or drainage. CARDIOVASCULAR: Regular rate and rhythm without murmurs, gallops, or rubs. RESPIRATORY: Breath sounds equal bilaterally. No accessory muscle use. GASTROINTESTINAL: Abdomen soft, non-tender, nondistended. MUSCULOSKELETAL: No cyanosis, or edema. SKIN: Warm and dry. NEURO: No focal neurological deficitis. Medications and IVs Administered Medications Medications (Trade) Dose Ordered Sig/Gregg Route PRN Reason Start Time Stop Time Status Last Admin Dose Admin Megestrol Acetate (Megace Liq) 400 mg DAILY PO 04/26/17 09:00 04/28/17 08:27 Mirtazapine (Remeron) 15 mg HS PO 04/25/17 21:00 04/27/17 21:34 Oxycodone HCl 5 mg 5 mg Q8H PRN PO PAIN SCALE 5 TO 10 04/25/17 17:15 04/27/17 17:10 Potassium Chloride 100 ml @ 50 mls/hr Q2H PRN IV SEE LABEL COMMENTS 04/25/17 16:15 04/26/17 10:00 Potassium Chloride (KCl 20 Meq Premix Inj) 100 ml @ 100 mls/hr Q1H PRN IV SEE LABEL COMMENTS 04/25/17 16:15 04/26/17 03:57 Chlorhexidine Gluconate 3 pack 3 pack Taper DAILY@04 TOP 04/26/17 04:00 04/22/18 03:59 04/27/17 04:00 Piperacillin Sod/ Tazobactam Sod 100 ml @ 200 mls/hr Q6H IV 04/25/17 22:00 04/28/17 05:18 Vancomycin HCl/ Sodium Chloride (Vancomycin Inj/ NS 500 ml Inj) 515 ml @ 257.5 mls/ hr Q12H IV 04/26/17 02:00 04/28/17 01:06 Pantoprazole Sodium (Protonix Inj) 40 mg DAILY IV PUSH 04/26/17 09:00 04/28/17 08:27 Insulin Detemir (Levemir Inj) 5 units Q12HR SQ 04/26/17 15:00 04/28/17 08:25 Insulin Human Regular 1 1 Q4HR SQ 04/26/17 16:00 04/28/17 08:00 Sodium Chloride (NS 1000 ml Inj) 1,000 ml @ 84 mls/hr [id number] IV 04/26/17 15:00 04/28/17 05:18 A/P Problem List: (1) Sepsis ICD Code: A41.9 (2) Metabolic acidosis ICD Code: E87.2 (3) DKA (diabetic ketoacidoses) ICD Code: E13.10 (4) Altered mental status ICD Code: R41.82 (5) Lactic acidosis ICD Code: E87.2 (6) Dehydration ICD Code: E86.0 Assessment and Plan Assessment and Plan 56-year-old male admitted with sepsis, DKA, and dehydration. Treat hyperkalemia with potassium supplement and recheck at noon. Start physical therapy. Thrombocytopenia Slow downward trend and thrombocytes through time Patient is on heparin Stop heparin in case his syndrome is present/starting Dehydration Acute kidney injury Renal function improving Follow renal function Continue IV hydration Sepsis Leukocytosis Resolved Fever Continue vancomycin Follow blood cultures May be reactive as leukocytosis has resolved Urinalysis is negative Chest x-ray is negative DKA Diabetes mellitus DKA Resolved Tight blood sugar control Insulin sliding scale Diabetic diet Continue Levemir metabolic acidosis. Lactic acidosis Resolved Hypophosphatemia Resolved Follow phosphorus level Hypokalemia monitor and replace. Chronic back pain Continue baseline pain medications GI prophylaxis Protonix DVT prophylaxis SCDs due to risk of HIT syndrome Lines: RIght IJ CVP placed 04/25 peripheral IV Problem Qualifiers (1) Sepsis: Qualified Code: A41.9 - Sepsis, due to unspecified organism (2) DKA (diabetic ketoacidoses): Qualified Code: E13.10 - Diabetic ketoacidosis without coma associated with other specified diabetes mellitus (3) Altered mental status: Qualified Code: R41.0 - Disorientation Salomon Jackson MD Apr 28, 2017 10:09 am
[2017-04-28] MEDS ORDERED: POTASSIUM CHLORIDE 10 MEQ CONTROLLED RELEASE TAB PO ONE (17:45)
[2017-04-28] MEDS: MIRTAZAPINE 15 MG TAB PO SCH (20:15)
[2017-04-29] MEDS: INSULIN NovoLIN REGULAR SUPPLEMENTAL SCALE SQ SCH ×7 (00:14→23:54)
[2017-04-29] MEDS ORDERED: PHARMACY ORDERED LAB ONE (01:45)
[2017-04-29] MEDS: VANCOMYCIN 1,500 MG/NS 500 ML IV SCH ×2 (02:18)
[2017-04-29] MEDS: SODIUM CHLOR 0.9% 1000 ML INJ 1,000 ML IV SCH (02:22)
[2017-04-29] MEDS: PIPERACIL-TAZO 4.5 GM PREMIX 100 ML IV SCH ×2 (04:06→09:19)
[2017-04-29 07:34] LABS: BICARBONATE 9.3 MEQ/L (21.0-32.0)
[2017-04-29 08:00] VITALS: BP 110/74; PULSE 86; RESP 18; TEMP 99; O2SAT 98
[2017-04-29] MEDS ORDERED: POTASSIUM CHLORIDE 10 MEQ CONTROLLED RELEASE TAB PO ONE (09:00)
[2017-04-29] MEDS: INSULIN DETEMIR 100 UNITS/ML VIAL SQ SCH ×2 (09:06→19:53)
[2017-04-29] MEDS: PANTOPRAZOLE SODIUM 40 MG VIAL IV PUSH SCH (09:07)
[2017-04-29] MEDS: MEGESTROL ACETATE SUSP 400 MG/10 ML CUP PO SCH (09:08)
[2017-04-29 11:39] VITALS: BP 108/72; PULSE 86; RESP 18; TEMP 99.3; O2SAT 98
[2017-04-29] MEDS ORDERED: VANCOMYCIN INJ 1,750 MG in SODIUM CHLORID 0.9% 500 ML INJ 500 ML IV SCH (14:00)
--- NOTE | 2017-04-29 14:36 | HHI.PR ---
Subjective Remarks Patient has started to walk. He is not impressed with his on ambulation. It is reported he walked 20 feet. No further signs of infection. Reactivity possible. Cessation of antibiotics discussed with patient. Objective Vital Signs Date Time Temp Pulse Resp B/P Pulse Ox O2 Delivery O2 Flow Rate FiO2 04/29/17 11:39 99.3 86 18 108/72 98 04/29/17 08:00 99.0 86 18 110/74 98 04/28/17 23:33 99.4 82 18 124/83 99 04/28/17 20:23 98.5 85 18 116/81 100 04/28/17 18:39 Room Air 04/28/17 15:47 98.3 91 18 110/74 98 I/O 04/28/17 04/28/17 04/28/17 04/29/17 04/29/17 04/29/17 07:00 15:00 23:00 07:00 15:00 23:00 Intake Total 480 ml 1107 ml 1091 ml 1250 ml Output Total 1000 ml 1500 ml 1350 ml 1550 ml Balance -520 ml -393 ml -259 ml -300 ml Intake Oral 480 ml 240 ml 480 ml 360 ml IV Total 867 ml 611 ml 890 ml Output Urine Total 1000 ml 1500 ml 1350 ml 1550 ml # Bowel Movements 0 0 0 0 Result Diagram: 04/28/17 0355 04/29/17 0616 Objective Remarks GENERAL: NAD, A&Ox3, global weakness HEAD: Normocephalic. NECK: Supple, trachea midline. No lymphadenopathy. EYES: No scleral icterus. No injection or drainage. CARDIOVASCULAR: Regular rate and rhythm without murmurs, gallops, or rubs. RESPIRATORY: Breath sounds equal bilaterally. No accessory muscle use. GASTROINTESTINAL: Abdomen soft, non-tender, nondistended. MUSCULOSKELETAL: No cyanosis, or edema. SKIN: Warm and dry. NEURO: No focal neurological deficitis. A/P Problem List: (1) Sepsis ICD Code: A41.9 (2) Metabolic acidosis ICD Code: E87.2 (3) DKA (diabetic ketoacidoses) ICD Code: E13.10 (4) Altered mental status ICD Code: R41.82 (5) Lactic acidosis ICD Code: E87.2 (6) Dehydration ICD Code: E86.0 Assessment and Plan Assessment and Plan 56-year-old male admitted with DKA, and dehydration. Hypokalemia remains and continues to be treated. Patient is started ambulate with physical therapy. He may need a fdc facility at discharge. No further fevers or leukocytosis. Antibiotics discontinued and we'll monitor for recurrence of any fever or leukocytosis or other infectious signs. Thrombocytopenia Slow downward trend and thrombocytes through time, while on heparin Heparin discontinued Thrombocytes are improved today. Avoid heparin products Dehydration Acute kidney injury Renal function improving Follow renal function Continue IV hydration Sepsis Leukocytosis Signs have resolved. Leukocytosis may have been reactive Fever May have been reactive Antibiotic discontinued Monitor temperatures off antibiotics DKA Diabetes mellitus DKA Resolved Tight blood sugar control Insulin sliding scale Diabetic diet Continue Levemir metabolic acidosis. Lactic acidosis Resolved Hypophosphatemia Resolved Follow phosphorus level Hypokalemia monitor and replace. Chronic back pain Continue baseline pain medications GI prophylaxis Protonix DVT prophylaxis SCDs due to risk of HIT syndrome Lines: RIght IJ CVP placed 04/25 peripheral IV Problem Qualifiers (1) Sepsis: Qualified Code: A41.9 - Sepsis, due to unspecified organism (2) DKA (diabetic ketoacidoses): Qualified Code: E13.10 - Diabetic ketoacidosis without coma associated with other specified diabetes mellitus (3) Altered mental status: Qualified Code: R41.0 - Disorientation Salomon Jackson MD Apr 29, 2017 14:36
[2017-04-29 16:00] VITALS: BP 108/78; PULSE 88; RESP 18; TEMP 98.5; O2SAT 98
[2017-04-29 19:30] VITALS: BP 122/80; PULSE 95; RESP 18; TEMP 97.9; O2SAT 97
[2017-04-29] MEDS: MIRTAZAPINE 15 MG TAB PO SCH (19:50)
[2017-04-29] MEDS: POTASSIUM CHLORIDE 20 MEQ CONTROLLED RELEASE TAB PO SCH (19:51)
[2017-04-29 23:35] VITALS: BP 126/86; PULSE 95; RESP 19; TEMP 98.5; O2SAT 97
[2017-04-30 03:37] VITALS: BP 111/78; PULSE 92; RESP 18; TEMP 97.5; O2SAT 97
[2017-04-30] MEDS: INSULIN NovoLIN REGULAR SUPPLEMENTAL SCALE SQ SCH ×6 (04:06→23:43)
[2017-04-30 07:19] VITALS: BP 120/91; PULSE 95; RESP 18; TEMP 97.2; O2SAT 96
[2017-04-30 08:05] LABS: AUTOMATED NEUTROPHIL # 4.1 TH/MM3 (1.8-7.7); BASOPHIL % 0.3 % (0.0-2.0); EOSINOPHIL # 0.1 TH/MM3 (0-0.4); EOSINOPHIL % 2.1 % (0.0-4.0); HEMATOCRIT 42.9 % (39.0-51.0); HEMO FLAGS DIFF FINAL; LYMPH % 17.8 % (9.0-44.0); LYMPHOCYTE # 1.1 TH/MM3 (1.0-4.8); MEAN CELL VOLUME 86.7 FL (80.0-100.0); MEAN CORPUSCULAR HGB CONC 33.5 % (32.0-36.0); MONO % 11.7 % (0.0-8.0); NEUT % 68.1 % (16.0-70.0); PLATELET COUNT 114 TH/MM3 (150-450); RED BLOOD COUNT 4.95 MIL/MM3 (4.50-5.90); RED CELL DISTRIBUTION WIDTH 14.5 % (11.6-17.2); WHITE BLOOD COUNT 6.1 TH/MM3 (4.0-11.0)
[2017-04-30 08:26] LABS: BICARBONATE 9.1 MEQ/L (21.0-32.0); POTASSIUM 3.9 MEQ/L (3.5-5.1)
[2017-04-30] MEDS: INSULIN DETEMIR 100 UNITS/ML VIAL SQ SCH ×2 (08:37→20:11)
[2017-04-30] MEDS: POTASSIUM CHLORIDE 20 MEQ CONTROLLED RELEASE TAB PO SCH ×2 (08:38→20:09)
[2017-04-30] MEDS: PANTOPRAZOLE SODIUM 40 MG VIAL IV PUSH SCH (08:38)
[2017-04-30] MEDS: MEGESTROL ACETATE SUSP 400 MG/10 ML CUP PO SCH (08:39)
[2017-04-30 11:41] VITALS: BP 117/76; PULSE 96; RESP 18; TEMP 98; O2SAT 98
--- NOTE | 2017-04-30 13:15 | HHI.PR ---
Subjective Remarks Patient remains lethargic though he is arousable. She has not been eating well per his . He can ambulate somewhat with PT. Global weakness remains. He is not a good candidate for discharge to home. Metabolically and medically he is stabilizing and will be ready for discharge soon. His condition may be DKA related but is persistent somewhat. He does have brain cancer with metastasis which might also be contributory. Objective Vital Signs Date Time Temp Pulse Resp B/P Pulse Ox O2 Delivery O2 Flow Rate FiO2 04/30/17 11:41 98.0 96 18 117/76 98 04/30/17 07:19 97.2 95 18 120/91 96 04/30/17 03:37 97.5 92 18 111/78 97 04/29/17 23:35 98.5 95 19 126/86 97 04/29/17 19:30 97.9 95 18 122/80 97 04/29/17 18:41 Room Air 04/29/17 16:00 98.5 88 18 108/78 98 I/O 04/29/17 04/29/17 04/29/17 04/30/17 04/30/17 04/30/17 06:59 14:59 22:59 06:59 14:59 22:59 Intake Total 1250 ml 1339 ml 810 ml Output Total 1550 ml 700 ml 1375 ml 450 ml Balance -300 ml -700 ml -36 ml 360 ml Intake Oral 360 ml 840 ml 360 ml IV Total 890 ml 499 ml 450 ml Output Urine Total 1550 ml 700 ml 1375 ml 450 ml # Bowel Movements 0 0 0 Result Diagram: 04/30/17 0636 04/30/17 0636 Objective Remarks GENERAL: NAD, A&Ox3, global weakness HEAD: Normocephalic. NECK: Supple, trachea midline. No lymphadenopathy. EYES: No scleral icterus. No injection or drainage. CARDIOVASCULAR: Regular rate and rhythm without murmurs, gallops, or rubs. RESPIRATORY: Breath sounds equal bilaterally. No accessory muscle use. GASTROINTESTINAL: Abdomen soft, non-tender, nondistended. MUSCULOSKELETAL: No cyanosis, or edema. SKIN: Warm and dry. NEURO: No focal neurological deficitis. A/P Problem List: (1) Sepsis ICD Code: A41.9 (2) Metabolic acidosis ICD Code: E87.2 (3) DKA (diabetic ketoacidoses) ICD Code: E13.10 (4) Altered mental status ICD Code: R41.82 (5) Lactic acidosis ICD Code: E87.2 (6) Dehydration ICD Code: E86.0 Assessment and Plan Assessment and Plan 56-year-old male admitted with DKA, and dehydration. Hypokalemia remains and continues to be treated. Patient is started ambulate with physical therapy. Currently he is not thriving. She is improving medically. However, his cognitive status and strength remain weak. Brain cancer may be contributory. We'll consult his oncologist Dr. Lofton. Consideration for Decadron, will await advice from Dr. Lofton. Thrombocytopenia Slow downward trend and thrombocytes through time, while on heparin Heparin discontinued Thrombocytes are improved today. Avoid heparin products Dehydration Acute kidney injury Renal function improving Follow renal function Continue IV hydration Sepsis Leukocytosis Signs have resolved. Leukocytosis may have been reactive Fever May have been reactive Antibiotic discontinued Monitor temperatures off antibiotics DKA Diabetes mellitus DKA Resolved Tight blood sugar control Insulin sliding scale Diabetic diet Continue Levemir metabolic acidosis. Lactic acidosis Resolved Hypophosphatemia Resolved Follow phosphorus level Hypokalemia monitor and replace. Chronic back pain Continue baseline pain medications GI prophylaxis Protonix DVT prophylaxis SCDs due to risk of HIT syndrome Lines: RIght IJ CVP placed 04/25 peripheral IV Problem Qualifiers (1) Sepsis: Qualified Code: A41.9 - Sepsis, due to unspecified organism (2) DKA (diabetic ketoacidoses): Qualified Code: E13.10 - Diabetic ketoacidosis without coma associated with other specified diabetes mellitus (3) Altered mental status: Qualified Code: R41.0 - Disorientation Salomon Jackson MD Apr 30, 2017 13:15
[2017-04-30 16:00] VITALS: BP 116/86; PULSE 101; RESP 18; TEMP 96.6; O2SAT 96
[2017-04-30] MEDS: MIRTAZAPINE 15 MG TAB PO SCH (20:09)
[2017-04-30 20:30] VITALS: BP 141/95; PULSE 99; RESP 18; TEMP 97.5; O2SAT 98
[2017-05-01 00:26] VITALS: BP 121/85; PULSE 95; RESP 18; TEMP 99.5; O2SAT 99
[2017-05-01] MEDS ORDERED: PHARMACY ORDERED LAB ONE (01:45)
[2017-05-01] MEDS: INSULIN NovoLIN REGULAR SUPPLEMENTAL SCALE SQ SCH ×6 (03:41→23:50)
[2017-05-01 06:07] LABS: HEMATOCRIT 43.1 % (39.0-51.0); MEAN CELL VOLUME 85.3 FL (80.0-100.0); MEAN CORPUSCULAR HEMOGLOBIN 28.8 PG (27.0-34.0); MEAN CORPUSCULAR HGB CONC 33.7 % (32.0-36.0); PLATELET COUNT 126 TH/MM3 (150-450); RED BLOOD COUNT 5.06 MIL/MM3 (4.50-5.90); RED CELL DISTRIBUTION WIDTH 14.8 % (11.6-17.2); REVIEW FLAG FINAL; WHITE BLOOD COUNT 7.3 TH/MM3 (4.0-11.0)
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
[2017-05-01 06:38] LABS: THYROXINE (T4) 8.1 MCG/DL (4.5-12.1)
[2017-05-01 07:12] LABS: POTASSIUM 3.8 MEQ/L (3.5-5.1)
[2017-05-01] MEDS: PANTOPRAZOLE SODIUM 40 MG VIAL IV PUSH SCH (07:33)
[2017-05-01] MEDS: MEGESTROL ACETATE SUSP 400 MG/10 ML CUP PO SCH (07:33)
[2017-05-01] MEDS: POTASSIUM CHLORIDE 20 MEQ CONTROLLED RELEASE TAB PO SCH ×2 (07:37→19:34)
[2017-05-01] MEDS: INSULIN DETEMIR 100 UNITS/ML VIAL SQ SCH ×2 (07:41→19:41)
[2017-05-01 08:00] VITALS: BP 134/90; PULSE 114; RESP 20; TEMP 98.8; O2SAT 98
[2017-05-01] MEDS ORDERED: GADODIAMIDE PF 287 MG/ML 5 ML VIAL (for RAD MRI) IV ONE (09:03)
--- NOTE | 2017-05-01 09:53 | RADRPT ---
EXAM DATE/TIME: 05/01/2017 08:48 [facility] COMPARISON: MRI BRAIN W & W/O CONTRAST, June 27, 2016, 21:36. INDICATIONS : Metastatic disease. Prior brain surgery for brain mass. CONTRAST: 15 cc Omniscan (gadodiamide) IV MEDICAL HISTORY : Chronic obstructive pulmonary disease. Diabetes mellitus type 2. SURGICAL HISTORY : Rt leg ORIF, brain surgery to remove mass 07/01 ENCOUNTER: Subsequent ACUITY: 7-11 months PAIN SCORE: 0/10 LOCATION: cranial TECHNIQUE: Multiplanar, multisequence MRI of the brain was performed both prior to and following the administrat ion of paramagnetic contrast. FINDINGS: The examination demonstrates resection of a 2.2 x 2.0 cm mass in the left posterior parietal cortex. There is only minimal residual enhancement around the posterior aspect of the operative bed. This may simply represent gliosis however a small amount of residual tumor cannot be entirely excluded. There is some increased T2 signal surrounding the encephalomalacic defect probably representing gliosis. Today's examination also demonstrates 2 enhancing lesions in the lateral aspect of the right parietal cortex. The largest measures 1.0 cm x 0.8 CM. There is a second 8mm lesion seen just superior to thi s. These would be consistent with metastatic disease. The inversion recovery images demonstrate a mod erate amount of edema surrounding the 2 lesions within the right parietal cortex. The ventricles are normal in size and configuration. No abnormal extra-axial fluid collections are se en. The appearance of the posterior fossa is unremarkable. There is fluid within the mastoid air cells. The sinuses are clear. The orbits are intact. CONCLUSION: 1. There has been previous resection of a 2.2 cm mass from the left occipital cortex. There is only m inimal contrast enhancement within the operative bed possibly representing gliosis however some degre e of residual tumor cannot be entirely excluded. 2. There are 2 lesions seen within the right parietal cortex the largest measures 0.8 x 1.0 CM. The s econd measures 8 mm. These are consistent with metastatic disease. There is surrounding vasogenic ronal ma. Salomon Aguilera MD on May 01, 2017 at 9:44 Board Certified Radiologist. This report was verified electronically.
--- NOTE | 2017-05-01 11:50 | PD.ONC.PN ---
Subjective Subjective Remarks Afebrile overnight. Patient resting in bed in nad. States he is feeling a bit better today. No pain. Earlier today he walked with walker with PT. Objective Data Date Time Temp Pulse Resp B/P Pulse Ox O2 Delivery O2 Flow Rate FiO2 05/01/17 08:00 98.8 114 20 134/90 98 05/01/17 00:26 99.5 95 18 121/85 99 04/30/17 20:30 97.5 99 18 141/95 98 04/30/17 18:41 18 04/30/17 16:00 96.6 101 18 116/86 96 05/01/17 05/01/17 05/01/17 07:00 15:00 23:00 Intake Total 120 ml Balance 120 ml Result Diagram: 05/01/17 0543 05/01/17 0543 Laboratory Results Laboratory Tests Test 05/01/17 05/01/17 05:43 07:00 White Blood Count 7.3 TH/MM3 Red Blood Count 5.06 MIL/MM3 Hemoglobin 14.5 GM/DL Hematocrit 43.1 % Mean Corpuscular Volume 85.3 FL Mean Corpuscular Hemoglobin 28.8 PG Mean Corpuscular Hemoglobin 33.7 % Concent Red Cell Distribution Width 14.8 % Platelet Count 126 TH/MM3 Mean Platelet Volume 8.0 FL Sodium Level 143 MEQ/L Potassium Level 3.8 MEQ/L Chloride Level 114 MEQ/L Carbon Dioxide Level 14.0 MEQ/L Anion Gap 15 MEQ/L Blood Urea Nitrogen 7 MG/DL Creatinine 0.53 MG/DL Estimat Glomerular Filtration 160 ML/MIN Rate Random Glucose 188 MG/DL Calcium Level 9.5 MG/DL Thyroxine (T4) 8.1 MCG/DL Thyroid Stimulating Hormone 0.918 uIU/ML 3rd Gen Random Cortisol 1.6 MCG/DL Ammonia 24 MCMOL/L Imaging Studies Last 24 hours Impressions Brain MRI 05/01/17 0000 Signed Impressions: Service Date/Time: Monday, May 01, 2017 08:48 - CONCLUSION: 1. There has been previous resection of a 2.2 cm mass from the left occipital cortex. There is only minimal contrast enhancement within the operative bed possibly representing gliosis however some degree of residual tumor cannot be entirely excluded. 2. There are 2 lesions seen within the right parietal cortex the largest measures 0.8 x 1.0 CM. The second measures 8 mm. These are consistent with metastatic disease. There is surrounding vasogenic edema. Salomon Aguilera MD Administered Medications Medications (Trade) Dose Ordered Sig/Gregg Route PRN Reason Start Time Stop Time Status Last Admin Dose Admin Megestrol Acetate (Megace Liq) 400 mg DAILY PO 04/26/17 09:00 05/01/17 07:33 Mirtazapine (Remeron) 15 mg HS PO 04/25/17 21:00 04/30/17 20:09 Oxycodone HCl (Roxicodone) 5 mg Q8H PRN PO PAIN SCALE 5 TO 10 04/25/17 17:15 05/01/17 07:33 Pantoprazole Sodium (Protonix Inj) 40 mg DAILY IV PUSH 04/26/17 09:00 05/01/17 07:33 Insulin Detemir (Levemir Inj) 5 units Q12HR SQ 04/26/17 15:00 05/01/17 07:41 Insulin Human Regular (NovoLIN R SUPPLEMENTAL SCALE) 1 Q4HR SQ 04/26/17 16:00 05/01/17 03:41 Potassium Chloride (KCl) 20 meq Q12HR PO 04/29/17 21:00 05/01/17 07:37 Objective Remarks GENERAL: Middle aged male, lying in bed resting. SKIN: Warm and dry. HEAD: Normocephalic. EYES: No injection or drainage. NECK: Supple, trachea midline. CARDIOVASCULAR: +S1/S2 RESPIRATORY: Breath sounds equal bilaterally. No accessory muscle use. GASTROINTESTINAL: Abdomen soft, non-tender, nondistended. EXTREMITIES: No cyanosis NEUROLOGICAL: awake and alert, normal speech Assessment/Plan Assessment 56y/o male with metastatic melanoma. Admitted in DKA, severely debilitated. Plan 1. MRI brain results d/w patient. will await CT C/A/P. 2. TSH/T4 WNL, morning cortisol slightly low. ACTH pending. 3. patient is severely debilitated and may be hospice appropriate. will await remainder of workup and palliative care consult. Attending Statement The exam, history, and the medical decision-making described in the above note were completed with the assistance of the mid-level provider. I reviewed and agree with the findings presented. I attest that I had a [id number] encounter with the patient on the same day, and personally performed and documented my assessment and findings in the medical record. cortisol very low and he has adrenal insufficiency probably a result of he immune therapy. will tx with prednisone 10 mg po bid and hydrocortisone times 1. he has 2 small slide developer lesions and no disease elsewhere. will tx with stereotactic radiotherapy. discussed with Dr. Lopez. increase pain meds. hopefully the steroids will help restore strength but case complicated with many problems. no change in exam. Danitza Luque May 01, 2017 11:50 Meng Lofton MD May 01, 2017 18:18
[2017-05-01 12:00] VITALS: BP 137/96; PULSE 100; RESP 18; TEMP 96.5; O2SAT 99
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
[2017-05-01] MEDS ORDERED: IOHEXOL 350 MG/ML 10 ML VIAL (for RAD DIAG) IV ONE (13:10)
--- NOTE | 2017-05-01 14:52 | HHI.PR ---
Subjective Remarks Further workup of brain cancer to establish present state. MRI of the brain and CAT scan of the thorax and abdomen are pending. No new complaints from patient. Objective Vital Signs Date Time Temp Pulse Resp B/P Pulse Ox O2 Delivery O2 Flow Rate FiO2 05/01/17 12:00 96.5 100 18 137/96 99 05/01/17 08:00 98.8 114 20 134/90 98 05/01/17 00:26 99.5 95 18 121/85 99 04/30/17 20:30 97.5 99 18 141/95 98 04/30/17 18:41 18 04/30/17 16:00 96.6 101 18 116/86 96 I/O 04/30/17 04/30/17 04/30/17 05/01/17 05/01/17 05/01/17 07:00 15:00 23:00 07:00 15:00 23:00 Intake Total 810 ml 240 ml 240 ml 120 ml Output Total 450 ml 1425 ml Balance 360 ml -1185 ml 240 ml 120 ml Intake Oral 360 ml 240 ml 240 ml 120 ml IV Total 450 ml Output Urine Total 450 ml 1425 ml # Voids 2 0 # Bowel Movements 0 0 0 Result Diagram: 05/01/17 0543 05/01/17542 Objective Remarks GENERAL: NAD, A&Ox3, global weakness HEAD: Normocephalic. NECK: Supple, trachea midline. No lymphadenopathy. EYES: No scleral icterus. No injection or drainage. CARDIOVASCULAR: Regular rate and rhythm without murmurs, gallops, or rubs. RESPIRATORY: Breath sounds equal bilaterally. No accessory muscle use. GASTROINTESTINAL: Abdomen soft, non-tender, nondistended. MUSCULOSKELETAL: No cyanosis, or edema. SKIN: Warm and dry. NEURO: No focal neurological deficitis. A/P Problem List: (1) Sepsis ICD Code: A41.9 (2) Metabolic acidosis ICD Code: E87.2 (3) DKA (diabetic ketoacidoses) ICD Code: E13.10 (4) Altered mental status ICD Code: R41.82 (5) Lactic acidosis ICD Code: E87.2 (6) Dehydration ICD Code: E86.0 Assessment and Plan Assessment and Plan 56-year-old male admitted with DKA, and dehydration. Persistent fatigue in baseline lethargy. Possible progression of brain cancer. If this is strictly DKA and dehydration he should have improved further than his present baseline by this time. MRI of brain and CAT scan of thorax and abdomen are pending. Oncology following. Thrombocytopenia Slow downward trend and thrombocytes through time, while on heparin Heparin discontinued Thrombocytes are improved today. Avoid heparin products Dehydration Acute kidney injury Renal function improving Follow renal function Continue IV hydration Sepsis Leukocytosis Signs have resolved. Leukocytosis may have been reactive Fever May have been reactive Antibiotic discontinued Monitor temperatures off antibiotics DKA Diabetes mellitus DKA Resolved Tight blood sugar control Insulin sliding scale Diabetic diet Continue Levemir metabolic acidosis. Lactic acidosis Resolved Hypophosphatemia Resolved Follow phosphorus level Hypokalemia monitor and replace. Chronic back pain Continue baseline pain medications GI prophylaxis Protonix DVT prophylaxis SCDs due to risk of HIT syndrome Lines: RIght IJ CVP placed 04/25 peripheral IV Problem Qualifiers (1) Sepsis: Qualified Code: A41.9 - Sepsis, due to unspecified organism (2) DKA (diabetic ketoacidoses): Qualified Code: E13.10 - Diabetic ketoacidosis without coma associated with other specified diabetes mellitus (3) Altered mental status: Qualified Code: R41.0 - Disorientation Salomon Jackson MD May 01, 2017 2:52 pm
--- NOTE | 2017-05-01 15:44 | RADRPT ---
EXAM DATE/TIME: 05/01/2017 12:49 [facility] COMPARISON: CT ABDOMEN & PELVIS W CONTRAST, July 29, 2016, 18:26. INDICATIONS : History of melanoma. Evaluate for metastatic disease. IV CONTRAST: 88 cc Omnipaque 350 (iohexol) IV ; Cumulative dose for multiple exams. ORAL CONTRAST: Prescribed oral contrast ingested. RADIATION DOSE: 5.79 CTDIvol (mGy) ; Combined studies - Thorax/Abdomen/Pelvis MEDICAL HISTORY : Diabetes mellitus type 2. Melanoma SURGICAL HISTORY : None. ENCOUNTER: Initial ACUITY: 1 day PAIN SCALE: 0/10 LOCATION: Bilateral abdomen TECHNIQUE: Volumetric scanning of the abdomen and pelvis was performed. Using automated exposure control and ad justment of the mA and/or kV according to patient size, radiation dose was kept as low as reasonably achievable to obtain optimal diagnostic quality images. FINDINGS: Cirrhosis of the liver is again noted. No focal hepatic mass is identified to suggest primary or met astatic neoplasm. No biliary ductal dilatation is noted. The gallbladder is unremarkable. Portal hy pertension is noted with perisplenic varices identified as well as mild enlargement of the spleen. T he pancreas is normal. The adrenal glands are normal bilaterally. The kidneys enhance briskly and d emonstrate no solid mass or stone. There is a 2.5 cm lower pole right renal cyst which is stable. Th e abdominal aorta is minimally calcified but is not aneurysmally dilated. The inferior vena cava is normal. There is no paraaortic, retroperitoneal or mesenteric lymphadenopathy. No ascites is noted. The urinary bladder is distended and contains some air which may be related to instrumentation. Cl inical correlation is recommended. There is a ovoid soft tissue density with some calcification centr ally which is unchanged compared to the previous examinations dating back to 2013 and is located with in the right posterior hemipelvis and is likely benign. Degenerative changes are noted throughout th e lumbar and lower thoracic spine. CONCLUSION: 1. No metastatic disease to the abdomen and pelvis. 2. Cirrhosis of the liver as well as portal hypertension indicated by perisplenic varices and mild sp lenomegaly. 3. Lower pole right renal cyst measuring 2.5 cm. 4. Degenerative changes and scoliosis of the thoracolumbar spine. Brown Becker MD on May 01, 2017 at 15:26 Board Certified Radiologist. This report was verified electronically.
--- NOTE | 2017-05-01 15:47 | RADRPT ---
EXAM DATE/TIME: 05/01/2017 12:53 [facility] COMPARISON: CT THORAX W CONTRAST, July 24, 2016, 16:13. INDICATIONS : History of melanoma. Evaluate for metastatic disease. IV CONTRAST: 88 cc Omnipaque 350 (iohexol) IV ; Cumulative dose for multiple exams. RADIATION DOSE: 5.49 CTDIvol (mGy) ; Combined studies - Thorax/Abdomen/Pelvis MEDICAL HISTORY : Diabetes mellitus type 2. Melanoma. SURGICAL HISTORY : None. ENCOUNTER: Initial ACUITY: 1 day PAIN SCALE: 0/10 LOCATION: Bilateral chest TECHNIQUE: Volumetric scanning of the chest was performed. Using automated exposure control and adjustment of t he mA and/or kV according to patient size, radiation dose was kept as low as reasonably achievable to obtain optimal diagnostic quality images. FINDINGS: Focal patchy opacity is noted within the right lower lobe consistent with possible pneumonia. Clinic al correlation is recommended. No nodule or mass is noted. No mediastinal, hilar, or axillary lympha denopathy is noted. Coronary artery calcifications are noted. Right thyroid lobe nodule is stable. The bony thorax is unremarkable without focal lytic or sclerotic lesion. Degenerative changes are no troy throughout the thoracic spine. CONCLUSION: 1. Focal patchiness within the right lower lobe consistent with possible pneumonia. Clinical correlat ion is recommended. 2. No definite metastatic disease identified. 3. Coronary artery calcifications. 4. Degenerative changes throughout the thoracic spine. 5. Stable right thyroid lobe nodule. Brown Becker MD on May 01, 2017 at 15:35 Board Certified Radiologist. This report was verified electronically.
[2017-05-01 16:00] VITALS: BP 133/98; PULSE 107; RESP 20; TEMP 96.8; O2SAT 99
[2017-05-01] MEDS: predniSONE 10 MG TAB PO SCH (19:35)
[2017-05-01] MEDS: MIRTAZAPINE 15 MG TAB PO SCH (19:35)
[2017-05-01] MEDS ORDERED: HYDROCORTISONE SOD SUCCINATE 100 MG VIAL IV PUSH ONE (20:00)
[2017-05-01 20:20] VITALS: BP 110/77; PULSE 99; RESP 18; TEMP 98.4; O2SAT 97
[2017-05-02 00:15] VITALS: BP 113/75; PULSE 95; RESP 18; TEMP 97.4; O2SAT 97
[2017-05-02] MEDS: INSULIN NovoLIN REGULAR SUPPLEMENTAL SCALE SQ SCH ×3 (04:00→13:04)
[2017-05-02 08:00] VITALS: BP 123/85; PULSE 103; RESP 17; TEMP 96.8; O2SAT 96
[2017-05-02] MEDS: PANTOPRAZOLE SODIUM 40 MG VIAL IV PUSH SCH (08:37)
[2017-05-02] MEDS: POTASSIUM CHLORIDE 20 MEQ CONTROLLED RELEASE TAB PO SCH (08:37)
[2017-05-02] MEDS: MEGESTROL ACETATE SUSP 400 MG/10 ML CUP PO SCH (08:37)
[2017-05-02] MEDS: predniSONE 10 MG TAB PO SCH (08:37)
[2017-05-02] MEDS: INSULIN DETEMIR 100 UNITS/ML VIAL SQ SCH (08:49)
--- NOTE | 2017-05-02 09:44 | PD.ONC.PN ---
Subjective Subjective Remarks Afebrile overnight Still with generalized weakness No change after receiving hydrocortisone last night Objective Data Date Time Temp Pulse Resp B/P Pulse Ox O2 Delivery O2 Flow Rate FiO2 05/02/17 08:00 96.8 103 17 123/85 96 05/02/17 00:15 97.4 95 18 113/75 97 05/01/17 20:20 98.4 99 18 110/77 97 05/01/17 16:00 96.8 107 20 133/98 99 05/01/17 12:00 96.5 100 18 137/96 99 05/02/17 05/02/17 05/02/17 07:00 15:00 23:00 Intake Total 120 ml Balance 120 ml Result Diagram: 05/01/17 0543 05/01/17 0543 Imaging Studies Last [address] 05/01/17 0000 Signed Impressions: Service Date/Time: Monday, May 01, 2017 12:53 - CONCLUSION: 1. Focal patchiness within the right lower lobe consistent with possible pneumonia. Clinical correlation is recommended. 2. No definite metastatic disease identified. 3. Coronary artery calcifications. 4. Degenerative changes throughout the thoracic spine. 5. Stable right thyroid lobe nodule. Brown Becker MD Brain MRI 05/01/17 0000 Signed Impressions: Service Date/Time: Monday, May 01, 2017 08:48 - CONCLUSION: 1. There has been previous resection of a 2.2 cm mass from the left occipital cortex. There is only minimal contrast enhancement within the operative bed possibly representing gliosis however some degree of residual tumor cannot be entirely excluded. 2. There are 2 lesions seen within the right parietal cortex the largest measures 0.8 x 1.0 CM. The second measures 8 mm. These are consistent with metastatic disease. There is surrounding vasogenic edema. Salomon Aguilera MD Abdomen/Pelvis CT 05/01/17 0000 Signed Impressions: Service Date/Time: Monday, May 01, 2017 12:49 - CONCLUSION: 1. No metastatic disease to the abdomen and pelvis. 2. Cirrhosis of the liver as well as portal hypertension indicated by perisplenic varices and mild splenomegaly. 3. Lower pole right renal cyst measuring 2.5 cm. 4. Degenerative changes and scoliosis of the thoracolumbar spine. Brown Becker MD Administered Medications Medications (Trade) Dose Ordered Sig/Gregg Route PRN Reason Start Time Stop Time Status Last Admin Dose Admin Megestrol Acetate (Megace Liq) 400 mg DAILY PO 04/26/17 09:00 05/02/17 08:37 Mirtazapine (Remeron) 15 mg HS PO 04/25/17 21:00 05/01/17 19:35 Pantoprazole Sodium (Protonix Inj) 40 mg DAILY IV PUSH 04/26/17 09:00 05/02/17 08:37 Insulin Detemir (Levemir Inj) 5 units Q12HR SQ 04/26/17 15:00 05/02/17 08:49 Insulin Human Regular (NovoLIN R SUPPLEMENTAL SCALE) 1 Q4HR SQ 04/26/17 16:00 05/02/17 08:50 Potassium Chloride (KCl) 20 meq Q12HR PO 04/29/17 21:00 05/02/17 08:37 Oxycodone HCl (Roxicodone) 10 mg Q4HR PRN PO PAIN SCALE 5 TO 10 05/01/17 18:15 05/02/17 05:35 Prednisone (Deltasone) 10 mg BID PO 05/01/17 21:00 05/02/17 08:37 Objective Remarks GENERAL: Frail, thin appearing older male lying in bed in no distress SKIN: Warm and dry. HEAD: Normocephalic. EYES: No injection or drainage. NECK: Supple, trachea midline. L SC TLC. No oozing. CARDIOVASCULAR: +S1/S2. RESPIRATORY: Lungs clear anteriorly. Breathing unlabored. GASTROINTESTINAL: Abdomen soft, non-tender, nondistended. EXTREMITIES: No cyanosis, or edema. MUSCULOSKELETAL: Generalized weakness NEUROLOGICAL: Alert but slow to answer questions. Moving all extremities. Normal speech Assessment/Plan Assessment 56y/o male with metastatic melanoma. Admitted in DKA, severely debilitated. Plan 1. No big change after hydrocortisone last night. We will continue with prednisone. 2. ACTH remains pending. 3. CT of the chest, abdomen and pelvis showed no evidence of metastatic disease. 4. Palliative care attempted to get a hold patient's to further determine goals of treatment. 5. Overall the patient's prognosis is quite poor. Yeimy Muro May 02, 2017 09:44
[2017-05-02] MEDS ORDERED: OXYC-259 PO (10:32)
[2017-05-02] MEDS ORDERED: POTA20TA5 PO (10:32)
[2017-05-02] MEDS ORDERED: MARI5CAP PO (10:32)
[2017-05-02] MEDS ORDERED: PRED10 PO (10:32)
[2017-05-02] MEDS ORDERED: OXYC-392 PO (10:32)
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
[2017-05-02 12:02] VITALS: BP 122/94; PULSE 106; RESP 17; TEMP 96.3; O2SAT 96
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
== END 2017-05-02 16:49 | DRG 637 ==
LOC: NEPE 13:56 → NEDA 15:34 → HIME 17:30 → N06A 04-27 12:49
PROVIDERS: ADMIT Hospitalist; ATTEND Hospitalist
PROC: 02HV33Z Insertion of Infusion Device into Superior Vena Cava, Percutaneous Approach (ICD-10-PCS; principal; 2017-04-25)
PROC: B548ZZA Ultrasonography of Superior Vena Cava, Guidance (ICD-10-PCS; 2017-04-25)
DX: E13.10 Other specified diabetes mellitus with ketoacidosis without coma (principal); G93.6 Cerebral edema; N17.9 Acute kidney failure, unspecified; C77.3 Secondary and unspecified malignant neoplasm of axilla and upper limb lymph nodes; E46 Unspecified protein-calorie malnutrition; C79.31 Secondary malignant neoplasm of brain; E27.3 Drug-induced adrenocortical insufficiency; D69.6 Thrombocytopenia, unspecified; Z68.1 Body mass index [BMI] 19.9 or less, adult; E83.39 Other disorders of phosphorus metabolism; K74.60 Unspecified cirrhosis of liver; R62.7 Adult failure to thrive; E86.0 Dehydration; G89.29 Other chronic pain; R00.0 Tachycardia, unspecified; M54.5 Low back pain; M47.816 Spondylosis without myelopathy or radiculopathy, lumbar region; M47.814 Spondylosis without myelopathy or radiculopathy, thoracic region; M51.34 Other intervertebral disc degeneration, thoracic region; F10.21 Alcohol dependence, in remission; E87.6 Hypokalemia; F32.9 Major depressive disorder, single episode, unspecified; F41.9 Anxiety disorder, unspecified; T66.XXXA Radiation sickness, unspecified, initial encounter; T45.1X5A Adverse effect of antineoplastic and immunosuppressive drugs, initial encounter; Y84.2 Radiological procedure and radiotherapy as the cause of abnormal reaction of the patient, or of later complication, without mention of misadventure at the time of the procedure; Z79.4 Long term (current) use of insulin; Z85.820 Personal history of malignant melanoma of skin; Z86.19 Personal history of other infectious and parasitic diseases; Z92.21 Personal history of antineoplastic chemotherapy; Z92.3 Personal history of irradiation
CPT/HCPCS: 36556; 36600; 70553; 71010; 71260; 72129; 72132; 74177; 80048; 80053; 80202; 81001; 82010; 82024; 82140; 82533; 82805; 82948; 83036; 83605; 83690; 83735; 84100; 84132; 84436; 84443; 84484; 85007; 85025; 85027; 85384; 85610; 85730; 87040; 87449; 87641; 93005; 96374; 96375; 99232; A9579; C1769; C9113; J1644; J1720; J1815; J1817; J2270; J2543; J3370; J3480; J7030; J7040; J7042; J7050; J7512; Q9967

== ENCOUNTER 2017-05-04 09:36 | Inpatient (IN) | payer MEDICARE, OTHER ==
[2017-05-04] VITALS (21 sets, daily range): BP systolic 84–126; BP diastolic 53–80; PULSE 102–125; RESP 14–17; TEMP 93.1–99.9; O2SAT 93–100
[~2017-05-04] VITALS: Ht 180.3 cm; Wt 80.0 kg
[~2017-05-04 09:36] MED LIST changes: -AMOX500T2 PO; -DEXA.5 PO; -GLUCTAB PO; -HYDR-3580 PO; -LEVE500 PO; -LEVEMIR SC; +MARI5CAP PO; +MEGE40S PO; +METF-382 PO; +OXYC-259 PO; +OXYC-392 PO; +POTA20TA5 PO; +PRED10 PO; +REME15TA PO; -Z.0.WALKERFRONT
[2017-05-04] MEDS ORDERED: SUCCINYLCHOLINE CHLORIDE 200 MG/10 ML VIAL ONE (09:42)
[2017-05-04] MEDS ORDERED: NALOXONE HCL 0.4 MG/ML AMP ONE (09:44)
[2017-05-04] MEDS ORDERED: ETOMIDATE 20 MG/10 ML VIAL ONE (09:44)
[2017-05-04] MEDS ORDERED: PROPOFOL 1000 MG/100 ML INJ 100 ML ONE (09:49)
[2017-05-04] MEDS ORDERED: SODIUM CHLOR 0.9% 1000 ML INJ 1,000 ML IV SCH (09:53)
[2017-05-04] MEDS ORDERED: SODIUM CHLORIDE 0.9% FLUSH 5 ML FLUSH IV FLUSH PRN (10:00)
[2017-05-04 10:10] LABS: AUTOMATED NEUTROPHIL # 34.8 TH/MM3 (1.8-7.7); BASOPHIL # 0.1 TH/MM3 (0-0.2); BASOPHIL % 0.1 % (0.0-2.0); EOSINOPHIL # 0.1 TH/MM3 (0-0.4); EOSINOPHIL % 0.2 % (0.0-4.0); HEMATOCRIT 54.8 % (39.0-51.0); LYMPH % 5.9 % (9.0-44.0); LYMPHOCYTE # 2.5 TH/MM3 (1.0-4.8); MEAN CELL VOLUME 93.9 FL (80.0-100.0); MEAN CORPUSCULAR HEMOGLOBIN 28.6 PG (27.0-34.0); MEAN CORPUSCULAR HGB CONC 30.5 % (32.0-36.0); MONO % 12.4 % (0.0-8.0); NEUT % 81.4 % (16.0-70.0); PLATELET COUNT 284 TH/MM3 (150-450); RED BLOOD COUNT 5.84 MIL/MM3 (4.50-5.90); RED CELL DISTRIBUTION WIDTH 16.9 % (11.6-17.2); WHITE BLOOD COUNT 42.8 TH/MM3 (4.0-11.0)
--- NOTE | 2017-05-04 10:10 | PD ---
HPI Chief Complaint: Altered mental status Time Seen by Provider: 09:53 Travel History International Travel<30 days: No Contact w/Intl Traveler<30days: No History of Present Illness HPI 56yo M with PMH of hep C, brain cancer, type 1 DM brought in via [facility] for altered mental status. States he normally talks and was unresponsive today. Last seen normal was yesterday. Pt is not responding to verbal stimuli. Pt was given narcan 2mg IV and was moving extremities but still not verbal and not following commands. Pt is full code as per [facility]. Pt is very dry appearing and tachycardic. He was just admitted 04/25/17-05/02/17 for DKA and dehydration. PFSH Past Medical History Arthritis: No Asthma: No Anxiety: Yes Depression: Yes Heart Rhythm Problems: No Cancer: Yes (skin cancer) Cardiovascular Problems: No High Cholesterol: No Chest Pain: No Congestive Heart Failure: No COPD: No Cerebrovascular Accident: No Diabetes: Yes (LEVEMIR FLEX PEN) Diminished Hearing: No Endocrine: Yes Gastrointestinal Disorders: No Genitourinary: No Headaches: Yes Hypertension: No Immune Disorder: No Implanted Vascular Access Dvce: Yes Musculoskeletal: Yes (CHRONIC NECK/BACK PAIN) Neurologic: Yes Psychiatric: Yes Reproductive: No Respiratory: Yes Migraines: No Seizures: No Sleep Apnea: No Past Surgical History Abdominal Surgery: Yes (skin cancer removed from abdomen) AICD: No Arteriovenous Shunt: No Body Medical Devices: right leg ayaka/screws Ear Surgery: No Endocrine Surgery: No Eye Surgery: No Genitourinary Surgery: No Gynecologic Surgery: No Insulin Pump: No Joint Replacement: No Neurologic Surgery: Yes (CRANIOTOMY ) Oral Surgery: Yes (TEETH PULLED) Pacemaker: No Other Surgery: Yes Social History Alcohol Use: No Tobacco Use: No Substance Use: No Allergies-Medications (Allergen,Severity, Reaction): Coded Allergies: No Known Allergies (Verified , 07/24/16) Reported Meds & Prescriptions Reported Meds & Active Scripts Active Oxycodone (Oxycodone HCl) 5 Mg Tab 10 Mg PO Q4HR PRN Prednisone 10 Mg Tab 10 Mg PO BID Oxycontin (Oxycodone HCl) 10 Mg Tab 10 Mg PO DAILY (MIDDAY) Marinol (Dronabinol) 5 Mg Cap 5 Mg PO BID Reported Potassium Chloride ER (Potassium Chloride) 20 Meq Tab 20 Meq PO BID Milk of Magnesia Liq (Magnesium Hydroxide) 400 Mg/5 Ml Susp 30 Ml PO HS PRN Tylenol (Acetaminophen) 325 Mg Tab 650 Mg PO Q4H PRN Metformin (Metformin HCl) 1,000 Mg Tab 1,000 Mg PO BID With meals Remeron (Mirtazapine) 15 Mg Tab 15 Mg PO DAILY Review of Systems ROS Limitations: Clinical Condition Physical Exam Narrative GENERAL: 56yo M unresponsive. SKIN: Focused skin assessment warm/dry. Poor skin turgor. HEAD: Atraumatic. Normocephalic. EYES: Pupils equal and round at 3mm bilaterally.. No scleral icterus. No injection or drainage. ENT: No nasal bleeding or discharge. Mucous membranes pink and moist. NECK: Trachea midline. No JVD. CARDIOVASCULAR: Regular rate and rhythm. No murmur appreciated. RESPIRATORY: + accessory muscle use. Tachypneic. Kussmaul breathing. GASTROINTESTINAL: Abdomen soft, non-tender, nondistended. MUSCULOSKELETAL: No obvious deformities. No clubbing. No cyanosis. No edema. NEUROLOGICAL: Pt moving extremities but not to command. Nonverbal. Data Data Last Documented VS Vital Signs Date Time Temp Pulse Resp B/P Pulse Ox O2 Delivery O2 Flow Rate FiO2 05/04/17 11:30 93.1 108 16 126/80 100 Ventilator 100 Orders Succinylcholine Inj (Quelicin Inj) (05/04/17 09:42) Etomidate Inj (Amidate Inj) (05/04/17 09:44) Naloxone Inj (Narcan Inj) (05/04/17 09:44) Propofol 1000 Mg/100 Ml Inj (Diprivan 10 (05/04/17 09:49) Electrocardiogram (05/04/17 09:53) Ammonia (05/04/17 09:53) Complete Blood Count With Diff (05/04/17 09:53) Comprehensive Metabolic Panel (05/04/17 09:53) Creatine Kinase (Cpk) (05/04/17 09:53) Prothrombin Time / Inr (Pt) (05/04/17 09:53) Act Partial Throm Time (Ptt) (05/04/17 09:53) Troponin I (05/04/17 09:53) Thyroid Stimulating Hormone (05/04/17 09:53) Urinalysis - C+S If Indicated (05/04/17 09:53) Lactic Acid Sepsis Protocol (05/04/17 09:53) Arterial Blood Gas (Abg) (05/04/17 09:53) Blood Culture (05/04/17 09:53) Chest, Single Ap (05/04/17 09:53) Ct Brain W/O Iv Contrast(Rout) (05/04/17 09:53) Blood Glucose (05/04/17 09:53) Ecg Monitoring (05/04/17 09:53) Iv Access Insert/Monitor (05/04/17 09:53) Oximetry (05/04/17 09:53) Sodium Chloride 0.9% Flush (Ns Flush) (05/04/17 10:00) Sodium Chlor 0.9% 1000 Ml Inj (Ns 1000 M (05/04/17 09:53) Beta Hydroxybutyrate (Acetone) (05/04/17 09:54) Etomidate Inj (Amidate Inj) (05/04/17 10:30) Succinylcholine Inj (Quelicin Inj) (05/04/17 10:30) Sodium Chlor 0.9% 1000 Ml Inj (Ns 1000 M (05/04/17 10:30) Urinary Catheter Insert/Apply (05/04/17 10:24) Restraints Non-Violent ERASTO.Q3H (05/04/17 10:41) Naloxone Inj (Narcan Inj) (05/04/17 10:45) Propofol 1000 Mg/100 Ml Inj (Diprivan 10 (05/04/17 10:45) ^ Infusion (05/04/17 10:41) RASS (05/04/17 10:41) Neurological Rass Scale ERASTO.Q2H (05/04/17 10:41) Vancomycin Inj (Vancomycin Inj) (05/04/17 11:00) Piperacil-Tazo 3.375 Gm Premix (Zosyn 3. (05/04/17 11:00) Magnesium (Mg) (05/04/17 10:59) Phosphorus (Po4) (05/04/17 10:59) Sodium Bicarbonate 8.4% Inj (Sodium Bica (05/04/17 11:00) Vancomycin Inj (Vancomycin Inj) (05/04/17 11:14) Sodium Chlor 0.9% 1000 Ml Inj (Ns 1000 M (05/04/17 11:24) Dext 5%-Nacl 0.9% 1000 Ml Inj (D5w-Ns 10 (05/04/17 11:24) Insulin Human Regular Inj (Novolin R Inj (05/04/17 11:30) Insulin Regular (Iv Infusion) (Novolin R (05/04/17 11:30) Potassium Chlor 20 Meq Premix (Kcl 20 Me (05/04/17 11:30) Potassium Chlor 20 Meq Premix (Kcl 20 Me (05/04/17 11:30) Potassium Chlor 20 Meq Premix (Kcl 20 Me (05/04/17 11:30) Potassium Chlor 20 Meq Premix (Kcl 20 Me (05/04/17 11:30) Lactulose Liq (Lactulose Liq) (05/04/17 11:45) Ct Abd/Pel W/O Iv Contrast (05/04/17 ) Sodium Bicarbonate 8.4% Inj (Sodium Bica (05/04/17 11:45) Admit Order (Ed Use Only) (05/04/17 11:42) Labs Laboratory Tests Test 05/04/17 05/04/17 05/04/17 05/04/17 10:00 10:25 10:38 11:20 White Blood Count 42.8 TH/MM3 Red Blood Count 5.84 MIL/MM3 Hemoglobin 16.7 GM/DL Hematocrit 54.8 % Mean Corpuscular Volume 93.9 FL Mean Corpuscular Hemoglobin 28.6 PG Mean Corpuscular Hemoglobin 30.5 % Concent Red Cell Distribution Width 16.9 % Platelet Count 284 TH/MM3 Mean Platelet Volume 8.2 FL Neutrophils (%) (Auto) 81.4 % Lymphocytes (%) (Auto) 5.9 % Monocytes (%) (Auto) 12.4 % Eosinophils (%) (Auto) 0.2 % Basophils (%) (Auto) 0.1 % Neutrophils # (Auto) 34.8 TH/MM3 Lymphocytes # (Auto) 2.5 TH/MM3 Monocytes # (Auto) 5.3 TH/MM3 Eosinophils # (Auto) 0.1 TH/MM3 Basophils # (Auto) 0.1 TH/MM3 CBC Comment AUTO DIFF Differential Total Cells 100 Counted Neutrophils % (Manual) 70 % Band Neutrophils % 7 % Lymphocytes % 11 % Monocytes % 11 % Eosinophils % 1 % Neutrophils # (Manual) 33.0 TH/MM3 Differential Comment FINAL DIFF MANUAL Platelet Estimate NORMAL Platelet Morphology Comment NORMAL Jones-Haworth Bodies PRESENT Crenated Cell 1+ Prothrombin Time 14.2 SEC Prothromb Time International 1.3 RATIO Ratio Activated Partial 30.3 SEC Thromboplast Time Urine Color YELLOW Urine Turbidity CLEAR Urine pH 5.5 Urine Specific [place] 1.027 Urine Protein 30 mg/dL Urine Glucose (UA) 1000 mg/dL Urine Ketones 150 mg/dL Urine Occult Blood TRACE Urine Nitrite NEG Urine Bilirubin NEGATIVE Urine Urobilinogen LESS THAN 2.0 MG/DL Urine Leukocyte Esterase NEGATIVE Urine RBC 1 /hpf Urine WBC LESS THAN 1 /hpf Urine Squamous Epithelial 1 /hpf Cells Urine Hyaline Casts 32 /lpf Urine Granular Casts 4 /lpf Urine Mucus FEW /lpf Microscopic Urinalysis Comment CATH-CULT NOT IND Sodium Level 142 MEQ/L Potassium Level 4.7 MEQ/L Chloride Level 111 MEQ/L Carbon Dioxide Level LESS THAN 5.0 MEQ/L Anion Gap 26 MEQ/L Blood Urea Nitrogen 21 MG/DL Creatinine 1.39 MG/DL Estimat Glomerular Filtration 52 ML/MIN Rate Random Glucose 445 MG/DL Calcium Level 9.5 MG/DL Phosphorus Level 7.0 MG/DL Magnesium Level 2.8 MG/DL Total Bilirubin 0.6 MG/DL Aspartate Amino Transf 14 U/L (AST/SGOT) Alanine Aminotransferase 13 U/L (ALT/SGPT) Alkaline Phosphatase 72 U/L Total Creatine Kinase 55 U/L Troponin I LESS THAN 0.02 NG/ML Total Protein 5.8 GM/DL Albumin 3.0 GM/DL Thyroid Stimulating Hormone 0.868 uIU/ML 3rd Gen B-Hydroxybutyrate 10.19 MMOL/L Ammonia 90 MCMOL/L Blood Gas Puncture Site LT BRACHIAL Blood Gas Patient Temperature 98.6 Blood Gas HCO3 3 mmol/L Blood Gas Base Excess -27.0 mmol/L Blood Gas Oxygen Saturation 98 % Arterial Blood pH 6.92 Arterial Blood Partial 16 mmHg Pressure CO2 Arterial Blood Partial 495 mmHG Pressure O2 Arterial Blood Oxygen Content 21.7 Vol % Arterial Blood 0.7 % Carboxyhemoglobin Arterial Blood Methemoglobin 1.0 % Blood Gas Hemoglobin 14.9 G/DL Oxygen Delivery Device VENTILATOR Blood Gas Ventilator Setting AC/16/500/PEEP5 Blood Gas Inspired Oxygen 100 % Lactic Acid Level 6.5 mmol/L [facility] Medical Decision Making Medical Screen Exam Complete: Yes Emergency Medical Condition: Yes Interpretation(s) EKG: Sinus tachycardia at 107bpm. Normal axis. ST elevation of 1mm in lead I . Differential Diagnosis AMS secondary to DKA vs. hypernatremia vs. ICH vs. worsening of brain tumor Narrative Course 56yo M with type 1 DM, brain tumor here with altered mental status. Pt is very dry, tachypneic and tachycardic. Pt is full code and not responsive so intubated in the ED. Labs reviewed, leukocytosis at 42.8. Pt is also hypothermic and bear hugger applied. K: 4.7. Glucose 445. Increased anion gap 26. Pt started on insulin bolus and drip as well as potassium replacement. pH is 6.92, pt given sodium bicarb. b-hydroxybutryrate elevated at 10.19. Pt with metabolic acidosis with respiratory compensation. HCO3 is 3. Troponin negative. UA negative. CXR showed ET tube in good position. Ammonia elevated at 90. Ordered lactulose. Spoke to pt's Mrs. Anna Goldstein at [phone] and she states that she would not be able to come in until this evening. She wants everything done. Pt is still full code. Discussed with Dr. Suarez and accepted to his service and he wanted me to order CTa/p since there is no source for his infection. Critical Care Narrative Aggregate critical care time was 50 minutes. Time to perform other separately billable procedures was not included in the critical care time. My time did not include minutes spent treating any other patients simultaneously or on activities that did not directly contribute to the patient's treatment. The services I provided to this patient were to treat and/or prevent clinically significant deterioration that could result in: cardiovascular collapse or . I provided critical care services requiring my management, as noted below: Chart data review, documentation time, medication orders and management, vital sign assessments/reviewing monitor data, ordering and reviewing lab tests, ordering and interpreting/reviewing x-rays and diagnostic studies, care of the patient and discussion of the patient with the admitting physicians. Procedures Procedure Narrative The patient was put in optimal position for the procedure. Rapid sequence intubation was initiated by me using 20 milligrams of etomidate IV and 100 milligrams of succinylcholine IV. The patient was intubated with a 8.0 cuffed endotracheal tube. Tube placement was confirmed by visualization of the tube and balloon passing through the cords, capnometry and subsequent chest x-ray. Breath sounds were equal and well aerated bilaterally postintubation. No breath sounds over stomach. Patient tolerated procedure well. Diagnosis Primary Impression: DKA (diabetic ketoacidoses) Qualified Code: E10.11 - Diabetic ketoacidosis with coma associated with type 1 diabetes mellitus Admitting Information Admitting Physician Requests: Admit Roxana Osorio DO May 04, 2017 10:10
[2017-05-04 10:15] LABS: HEMO FLAGS AUTO DIFF
[2017-05-04 10:20] LABS: PROTHROMBIN TIME - PATIENT 14.2 SEC (9.8-11.6)
[2017-05-04 10:21] LABS: APTT (PATIENT) 30.3 SEC (24.3-30.1); INTERNATIONAL NORMALIZED RATIO 1.3 RATIO
[2017-05-04 10:25] LABS: GRANULAR CAST, URINE 4 /lpf; HYALINE CAST, URINE 32 /lpf (RARE); MUCUS URINE FEW /lpf (OCC); SQUAMOUS EPITHELIAL CELL URINE 1 /hpf (0-5)
[2017-05-04 10:26] LABS: COMMENT (UR) CATH-CULT NOT IND; CULTURE IF INDICATED CATH CULTURE NOT IND
[2017-05-04 10:27] LABS: PH, URINE 5.5 (5.0-8.5); URINE COLOR YELLOW (YELLW/STRAW)
[2017-05-04 10:28] LABS: BLOOD, URINE TRACE (NEG); GLUCOSE,URINE 1000 mg/dL (NEG); KETONE, URINE 150 mg/dL (NEG); NITRITE,URINE NEG (NEG)
[2017-05-04] MEDS ORDERED: SUCCINYLCHOLINE CHLORIDE 200 MG/10 ML VIAL IV PUSH ONE (10:30)
[2017-05-04] MEDS ORDERED: SODIUM CHLOR 0.9% 1000 ML INJ 1,000 ML IV ONE ×2 (10:30→12:30)
[2017-05-04] MEDS ORDERED: ETOMIDATE 20 MG/10 ML VIAL IV PUSH ONE (10:30)
[2017-05-04] MEDS ORDERED: NALOXONE HCL 2 MG/2 ML VIAL IV PUSH ONE (10:45)
[2017-05-04 10:47] LABS: BANDS 7 % (0-6); EOSINOPHILS 1 % (0-4); POLYS (SEG NEUTROPHILS) 70 % (16-70); WBC DIFF SAMPLE 100
[2017-05-04 10:49] LABS: PLATELET ESTIMATE SMEAR NORMAL (NORMAL); PLATELET MORPHOLOGY NORMAL (NORMAL); SCAN/DIFF FINAL DIFF MANUAL
[2017-05-04 10:50] LABS: CRENATED RBCS 1+ (NORMAL); HOWELL-JOLLY BODIES PRESENT (NONE SEEN)
[2017-05-04] MEDS ORDERED: VANCOMYCIN INJ 1,000 MG in SODIUM CHLOR 0.9% 250 ML INJ 250 ML IV ONE ×2 (11:00→11:14)
[2017-05-04] MEDS ORDERED: PIPERACIL-TAZO 3.375 GM PREMIX 50 ML IV ONE (11:00)
[2017-05-04] MEDS ORDERED: SODIUM BICARBONATE 8.4% SOLN 50 MEQ/50 ML VIAL IV PRN (11:00)
[2017-05-04] MEDS: PROPOFOL 1000 MG/100 ML INJ 100 ML IV SCH ×2 (11:02→18:39)
[2017-05-04 11:07] LABS: BLOOD GAS CARBOXYHEMOGLOBIN 0.7 % (0-4); BLOOD GAS HCO3 3 mmol/L (22-26); BLOOD GAS O2 HGB SATURATION 98 % (90-100); BLOOD GAS OXYGEN CONTENT 21.7 Vol % (12.0-20.0); BLOOD GAS PCO2 16 mmHg (38-42); BLOOD GAS PO2 495 mmHG (61-120); BLOOD GAS TOTAL HGB 14.9 G/DL (12.0-16.0); CRITICAL VALUE YES; DRAW SITE LT BRACHIAL; FIO2 100 %; NUMBER OF ARTERIAL PUNCTURES 1; OXYGEN DEVICE VENTILATOR; STAT YES; TEMP CORR TO 98.6; ULNAR PULSE PRESENT; VENT SETTINGS AC/16/500/PEEP5
[2017-05-04] MEDS ORDERED: MILKSUS PO (11:09)
[2017-05-04] MEDS ORDERED: TYLE325T PO (11:09)
[2017-05-04] MEDS ORDERED: POTA-163 PO (11:09)
[2017-05-04] MEDS ORDERED: METF1000 PO (11:09)
[2017-05-04 11:10] LABS: ALKALINE PHOSPHATASE 72 U/L (45-117); ALT (GPT) 13 U/L (12-78); ANION GAP 26 MEQ/L (5-15); AST (GOT) 14 U/L (15-37); BICARBONATE LESS THAN 5.0 MEQ/L (21.0-32.0); BLOOD UREA NITROGEN 21 MG/DL (7-18); CHLORIDE 111 MEQ/L (98-107); GLOMERULAR FILTRATION RATE 52 ML/MIN (>89); SODIUM (NA) 142 MEQ/L (136-145); TOTAL BILIRUBIN ADULT 0.6 MG/DL (0.2-1.0)
--- NOTE | 2017-05-04 11:10 | RADRPT ---
EXAM DATE/TIME: 05/04/2017 10:05 [facility] COMPARISON: CHEST SINGLE AP, April 25, 2017, 16:26. INDICATIONS : Evaluate ET tube placement. MEDICAL HISTORY : Diabetes mellitus type 2. Melanoma. SURGICAL HISTORY : None. ENCOUNTER: Initial ACUITY: 1 day PAIN SCORE: Non-responsive. LOCATION: Bilateral chest FINDINGS: ET tube is in good position. The lungs are clear. Old left rib fractures are noted. CONCLUSION: Sable chest with ET tube in good position. The patient does have a history melanoma. Han Aguilera MD FACR on May 04, 2017 at 10:51 Board Certified Radiologist. This report was verified electronically.
[2017-05-04 11:13] LABS: CREATINE KINASE 55 U/L (39-308); POTASSIUM 4.7 MEQ/L (3.5-5.1)
[2017-05-04] MEDS ORDERED: DEXT 5%-NACL 0.9% 1000 ML INJ 1,000 ML IV SCH (11:24)
[2017-05-04] MEDS ORDERED: INSULIN HUMAN REGULAR 1,000 UNITS/10 ML VIAL IV PUSH ONE (11:30)
[2017-05-04] MEDS ORDERED: POTASSIUM CHLOR 20 MEQ PREMIX 100 ML IV PRN ×3 (11:30)
--- NOTE | 2017-05-04 11:38 | RADRPT ---
EXAM DATE/TIME: 05/04/2017 11:01 [facility] COMPARISON: CT BRAIN W/O CONTRAST, July 02, 2016, 4:42. INDICATIONS : Altered mental status. RADIATION DOSE: 56.35 CTDIvol (mGy) MEDICAL HISTORY : Carcinoma; brain. SURGICAL HISTORY : Craniotomy. ENCOUNTER: Initial ACUITY: 1 day PAIN SCALE: 0/10 LOCATION: cranial TECHNIQUE: Multiple contiguous axial images were obtained of the head. Using automated exposure control and adj ustment of the mA and/or kV according to patient size, radiation dose was kept as low as reasonably a chievable to obtain optimal diagnostic quality images. FINDINGS: CEREBRUM: The ventricles are normal for age. No evidence of midline shift, mass lesion, hemorrhage or acute in farction. No extra-axial fluid collections are seen. Evidence for previous surgery is seen in the l eft occipital region. POSTERIOR FOSSA: The cerebellum and brainstem are intact. The 4th ventricle is midline. The cerebellopontine angle i s unremarkable. EXTRACRANIAL: The visualized portion of the orbits is intact. SKULL: The calvaria is intact. No evidence of skull fracture. CONCLUSION: Negative for an acute process.. Han Aguilera MD FACR on May 04, 2017 at 11:32 Board Certified Radiologist. This report was verified electronically.
[2017-05-04] MEDS ORDERED: LACTULOSE SYRUP 20 GM/30 ML CUP G-TUBE ONE (11:45)
[2017-05-04] MEDS ORDERED: SODIUM BICARBONATE 8.4% INJ 50 MEQ/50 ML SYR IV PUSH ONE (11:45)
[2017-05-04] MEDS ORDERED: RESP: ALBUTEROL 2.5 MG/IPRATROPIUM 0.5 MG NEB (PRN) ONE (11:53)
[2017-05-04] MEDS: RESP: ALBUTEROL 2.5 MG/IPRATROPIUM 0.5 MG NEB (SCH) INH ×3 (11:55→20:45)
[2017-05-04] MEDS ORDERED: CHLORHEXIDINE GLUCONATE 2 % 1 PACK (2 CLOTHS) TOP PRN (12:00)
[2017-05-04] MEDS ORDERED: MISCELLANEOUS NURSING INFORMATION XX SCH (12:00)
[2017-05-04] MEDS: SODIUM CHLOR 0.9% 1000 ML INJ 1,000 ML IV SCH ×2 (12:18→16:37)
[2017-05-04] MEDS: INSULIN REGULAR (IV INFUSION) 100 UNITS in SODIUM CHLORIDE 0.9% INJ 99 ML IV SCH ×2 (12:20→23:55)
[2017-05-04 12:46] LABS: MAGNESIUM 2.8 MG/DL (1.5-2.5)
--- NOTE | 2017-05-04 13:22 | MH ---
cc: CHRISTOPHER ADAMS M.D. 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 The patient was last seen normal yesterday. He was unresponsive and not responding to any verbal stimuli. The patient was given Narcan 2 mg IV without any significant effect. He was recently discharged from the hospital on May 02 after he was admitted back on April 25 for DKA and dehydration. Due to altered mental status the patient was subsequently intubated with etomidate and succinylcholine and placed on full mechanical ventilation. On arrival to the ER he was hypothermic with temperature of 93.8 rectally, tachycardiac with heart rate of 107 and a blood pressure of 107/65. Post intubation his ABG showed severe metabolic acidosis with a pH of 6.92, CO2 16, PAO2 495, bicarb 3 and saturation 98% on assist control ventilation with a rate of 16, tidal volume 500, PEEP of 5 and FIO2 100%. His laboratory data was significant for lactic acidemia with lactic acid level 6.5. In addition the patient was found to be in DKA with a blood sugar of 445, anion gap of 26 and beta-hydroxybutyrate of 10.1. The patient was noted to have significant leukocytosis with a WBC of 42.8. In the ER he was given one amp of sodium bicarb, 6 units IV push of regular insulin, vancomycin, Zosyn and 2 liters of crystalloids. He is about to go on an insulin drip per DKA protocol. CT scan of the brain was obtained in the ER which was negative for acute process. He also had a chest x-ray post intubation which showed ET tube in good position and clear lungs. A CT scan of the abdomen and pelvis was performed, however, results are pending during the time of this dictation. On his prior admission he had CT abdomen and pelvis on May 01 which showed no metastatic disease to the abdomen and pelvis, cirrhosis of the liver as well as portal hypertension. CT chest on May 01 as well showed focal patchiness within the right lower lobe consistent with a possible pneumonia, otherwise no definite metastatic disease to the chest. An MRI of the brain was obtained as well on May 01 which showed brain mets. PAST MEDICAL HISTORY 1. Metastatic melanoma to the brain and left axilla. 2. Chronic low back pain. 3. Diabetes mellitus. 4. Depression. 5. Anxiety. 6. Cirrhosis of the liver. PAST SURGICAL HISTORY 1. Left parietal craniotomy for resection of metastatic melanoma on June 30, 2016. 2. Left axillary dissection demonstrating metastatic melanoma involving four lymph nodes on July 01, 2016. 3. Right knee surgery. 4. Tib-fib fracture requiring ayaka placement in 1991. 5. Excision of melanoma abdominal wall roughly in 2012. ALLERGIES No known drug allergies. FAMILY HISTORY Noncontributory. MEDICATIONS 1. Oxycodone. 2. Prednisone. 3. OxyContin. 4. Marinol. 5. Metformin. 6. Remeron. REVIEW OF SYSTEMS As per HPI. The rest of the review of systems is unobtainable. PHYSICAL EXAMINATION GENERAL: A 56-year-old male intubated for airway protection. VITAL SIGNS: Temperature 93.8 rectally, pulse 107, respiratory rate 16, blood pressure 102/57, saturation 97%. Vent settings - assist control rate of 16, tidal volume 500, PEEP of 5, FIO2 50%. HEENT: Atraumatic, normocephalic. Pupils equal, round and reactive to light and accommodation. Extraocular muscles intact. Conjunctiva pink. Non-icteric sclera. Oral mucosa within normal. NECK: Supple. No JVD, adenopathy or thyromegaly. Trachea in the midline. CARDIOVASCULAR: Tachycardic. Normal S1, S2. No murmurs, rubs or gallops noted. PULMONARY: Bilateral equal entry. No rales or wheezing. ABDOMEN: Soft, nontender, no distention. Positive bowel sounds. EXTREMITIES: No cyanosis, clubbing or edema. NEUROLOGIC: Intubated, unresponsive. LABORATORY DATA Sodium 142, potassium 4.7, chloride 111, CO2 5, anion gap 26, BUN 21, creatinine 1.39, glucose 442, lactic acid 6.5, AST 14, ALT 13, alk phos 72, ammonia 90, troponin less than 0.02. WBC 42.8, hemoglobin 16.7, hematocrit 54, platelet count 284. INR 1.3, PT 14.2, PTT 30.3. Beta-hydroxybutyrate 10.1. Urinalysis: Less than 1 WBC, negative leukocyte esterase, negative nitrite. ABG showed a pH of 6.92, CO2 16, PAO2 495, bicarb 3, sat 98%. RADIOGRAPHIC STUDIES CT scan of the brain negative for acute disease. Chest x-ray showed ET tube above the nawaf, no acute focal pulmonary disease. IMPRESSION 1. Vent dependent respiratory failure. 2. Diabetic ketoacidosis. 3. Anion gap metabolic acidosis. 4. Lactic acidemia. 5. Acute kidney injury. 6. Leukocytosis. 7. Encephalopathy. 8. Metastatic melanoma to brain and left axilla. 9. History of hepatitis B. PLAN/RECOMMENDATIONS 1. Diprivan infusion for sedation and daily sedation vacation. Monitor neuro status closely. Will place on lactulose 15 mL t.i.d. and monitor ammonia level closely. CT scan of the brain in the ED was negative for acute disease; however, MRI of the brain from March 31 showed metastatic disease to the brain. 2. Continue with vent support and maintain sats above 92%. Bronchodilators in the form of DuoNeb q.6h. Will initiate ICU vent bundle. 3. Monitor heart rate and blood pressure closely and maintain MAP greater than 65 mmHg. Serial lactic acid monitoring. He was given 2 liters of crystalloid in the ED. Will give an additional one liter bolus of normal saline and place on a bicarb drip. The patient had an echocardiogram in July 2016 which showed an EF of 55-60% with no regional wall motion abnormalities. 4. Monitor renal function, I's and O's and avoid nephrotoxins. IV fluids as stated above. Will place on sterile water with 3 amps of bicarb at 150 mL an hour. Recheck lactic acid level in 4 hours. 5. Keep n.p.o. for now and place on Protonix 40 mg IV daily for GI prophylaxis. Follow-up on CT scan of the abdomen and pelvis which was performed in the ER. 6. Continue with broad-spectrum antibiotics in the form of vancomycin and Zosyn and monitor for signs of infection which include fever and WBC. Two sets of blood cultures were performed in the ER. 7. Continue with insulin drip per DKA protocol and monitor electrolytes, magnesium and phosphorous every 4 hours and beta-hydroxybutyrate q.12h. 8. TSH level measured at 0.86. 9. Monitor CBC and coags. 10. Will consult Dr. Lofton from medical oncology as patient is known to him. 11. Consult the palliative care service to assist with goals of care as overall prognosis appears poor. 12. GI prophylaxis with Protonix 40 mg daily and DVT prophylaxis with SCDs. Will hold off on chemical anticoagulation prophylaxis given underlying brain mets. 13. Further recommendations will be based on the hospital course. Critical care time 40 minutes excluding procedures. MD FRANCESCO Dawson/SHARRON /12:33 PM /12:57 PM
[2017-05-04 13:27] LABS: LACTIC ACID GHOST NOT REPORTABLE
[2017-05-04] MEDS ORDERED: Vancomycin Consult Pharmacy 1 EA OTHER SCH (13:45)
--- NOTE | 2017-05-04 13:46 | RADRPT ---
EXAM DATE/TIME: 05/04/2017 13:06 [place] COMPARISON: CT BRAIN W/O CONTRAST, May 04, 2017, 11:01. INDICATIONS : Abdominal pain. ORAL CONTRAST: No oral contrast ingested. RADIATION DOSE: 6.28 CTDIvol (mGy) MEDICAL HISTORY : Carcinoma; brain. SURGICAL HISTORY : Craniotomy. ENCOUNTER: Initial ACUITY: 1 day PAIN SCALE: Non-responsive LOCATION: Bilateral abdomen. TECHNIQUE: Volumetric scanning of the abdomen and pelvis was performed. Using automated exposure control and ad justment of the mA and/or kV according to patient size, radiation dose was kept as low as reasonably achievable to obtain optimal diagnostic quality images. FINDINGS: The limited portion of the lung base visualized demonstrate COPD changes but is otherwise clear. The appearance of the liver, spleen, pancreas, adrenal glands and left kidney is within normal limits by noncontrast CT. The exam demonstrates a 2.2 cm cyst arising from the lower pole of the right kidn ey. The abdominal aorta is normal in caliber. There is no retroperitoneal adenopathy. No free air or free fluid is seen. There is no free fluid within the pelvis. No iliac or inguinal adenopathy is present. The visualized loops of small and large bowel are unremarkable. There are degenerative changes throughout the lumbar spine. No distractive lesion is seen. CONCLUSION: 1. 2.2 cm simple cyst arising from the lower pole right kidney. 2. No definite abnormality to explain the patient's abdominal pain identified. 3. Degenerative changes within the lumbar spine. Salomon Aguilera MD on May 04, 2017 at 13:41 Board Certified Radiologist. This report was verified electronically.
--- NOTE | 2017-05-04 13:51 | PD.CONS ---
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 months --Malnutrition-anorexia, poor oral intake. Likely multifactorial. Has been on multiple appetite stimulants without good response. No overt nausea or vomiting endorsed during prior admission, now with AMS/unresponsive. Significant weight loss in the past months. Patient indicates food just doesn' t taste good no appetite during prior admission. * Palliative care will continue to follow during hospital course as condition evolves, to assist patient/decision-maker with understanding of medical conditions, weighing benefits/burdens of treatment options, for clarification of goals of treatment. Additionally will assist with any symptoms of palliative concern Time Spent Total Floor Time (mins): 60 Thank you for the opportunity to participate in the care of Mr. Goldstein. Attestation To help prompt me to consider important information that might be impacting today's encounter and assessment, information from prior notes written by myself or my colleagues may have been "brought forward" into today's note. My signature on this note, however, is an attestation that I personally performed the exam, history, and/or decision-making noted today, and, unless otherwise indicated, the interactions with patient, family, and staff as well as the review of records all occurred today. I also attest that the listed assessment and stated plan reflect my best clinical judgment today based on the combination of historical information, prior notes, and today's exam/ interactions. When time spent is documented, it refers only to time spent today by the signer, or if indicated, combined time spent today by collaborating physician/nurse practitioner. Sonam Branch May 04, 2017 13:50
[2017-05-04 14:20] LABS: BLOOD GAS CARBOXYHEMOGLOBIN 1.3 % (0-4); BLOOD GAS HCO3 3 mmol/L (22-26); BLOOD GAS METHEMOGLOBIN 1.5 % (0-2); BLOOD GAS O2 HGB SATURATION 97 % (90-100); BLOOD GAS OXYGEN CONTENT 19.7 Vol % (12.0-20.0); BLOOD GAS PCO2 14 mmHg (38-42); BLOOD GAS PO2 313 mmHg (61-120); TEMP CORR TO 98.6
[2017-05-04 14:21] LABS: CRITICAL VALUE YES; OXYGEN DEVICE VENT
[2017-05-04 14:22] LABS: DRAW SITE LT RADIAL; FIO2 50 %; NUMBER OF ARTERIAL PUNCTURES 1; STAT YES; ULNAR PULSE PRESENT
[2017-05-04] MEDS ORDERED: SODIUM BICARBONATE 8.4% SOLN 50 MEQ/50 ML VIAL IV PUSH ONE (14:30)
[2017-05-04] MEDS: SODIUM BICARBONATE 8.4% INJ 150 MEQ in WATER STERILE FOR INJ 850 ML IV SCH ×2 (15:08→21:40)
--- NOTE | 2017-05-04 15:52 | EKG ---
Date Performed: 05/04/2017 Time Performed: 10:24:55 PTAGE: 56 years EKG: SINUS TACHYCARDIA NONSPECIFIC T-WAVE ABNORMALITY When compared to previous tracing, sinus r ate has decreased. ABNORMAL RHYTHM ECG PREVIOUS TRACING : 04/25/2017 14.15 DOCTOR: Mc Sanchez Interpretating Date/Time 05/04/2017 15:51:48
--- NOTE | 2017-05-04 16:39 | PD.CONS ---
History of Present Illness Service Infectious disease Consult Requested By Dr Floyd Brink Reason for Consult Evaluate patient with sepsis and leukocytosis Primary Care Physician Otf Welch DO Diagnoses: History of Present Illness Patient seen and examined. Records reviewed. History has been obtained from current chart Patient is a 56-year-old male with history of metastatic melanoma, with metastases to the brain and lymph nodes in the axilla, recently hospitalized April 25 2 May 02 with dehydration, failure to thrive, and DKA. He was found to have [employer] lesions. And no other evidence of metastatic disease on his other imaging studies of the chest, abdomen or pelvis. [facility], and apparently on the day of admission patient was found to be unresponsive. He was given Narcan with no improvement. He was brought into the hospital, and ended up getting intubated. He has evidence of sepsis, he was hypothermic, significant leukocytosis, and elevated lactic acid. His chest x-ray is normal. CT of the abdomen and pelvis is unremarkable. CT of the head without contrast did not show any acute pathology, or bleed. His urinalysis is unremarkable. Patient has been started on broad-spectrum antibiotics. Infectious disease consultation has been requested to evaluate the patient for sepsis and leukocytosis. 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 Chronic low back pain Type 2 diabetes Depression Anxiety Cirrhosis Past Surgical History Left parietal craniotomy for resection of metastatic melanoma June 2016 Left axilla dissection with metastases to lymph nodes June 2016 Fine needle aspirate of the thyroid consistent with hyperplastic nodule Right knee surgery Tib-fib fracture status post repair with ayaka placement Excision of melanoma abdominal wall 2013 Active Ordered Medications Albuterol Insulin Lactulose Protonix Zosyn Potassium Diprivan Nancy-Colace Sodium bicarbonate Vancomycin Family History Noncontributory Social History No smoking history Stop drinking alcohol about 6 years ago, with prior history of heavy alcohol drinking No illicit drugs Physical Exam Vital Signs Vital Signs Date Time Temp Pulse Resp B/P Pulse Ox O2 Delivery O2 Flow Rate FiO2 05/04/17 14:55 100 40 05/04/17 14:00 50 05/04/17 13:00 100 100 05/04/17 12:30 94.1 102 16 126/57 100 Ventilator 50 05/04/17 11:55 97 50 05/04/17 11:30 93.1 108 16 126/80 100 Ventilator 100 05/04/17 10:57 100 100 05/04/17 10:32 107 16 107/65 93 Ventilator 100 05/04/17 10:19 100 05/04/17 09:55 96 100 05/04/17 09:40 93.8 05/04/17 09:36 93.8 Physical Exam GENERAL: Patient is a thin, well-developed patient, sedated on the vent, looks pale, not in respiratory distress. SKIN: Cool and dry. No generalized rash. Has mottling in both LE. HEAD: Atraumatic. Normocephalic. No temporal wasting, or tenderness. EYES: [place] conjunctiva. No petechia or hemorrhage. Pupils equal, round and reactive to light. No scleral icterus. No injection or drainage. EARS, NOSE AND THROAT: Nose without bleeding or purulent nasal discharge. Dry mucous membranes. He is orally intubated NECK: Trachea midline. Supple and not tender, no meningeal signs CARDIOVASCULAR: Regular rate and rhythm. No murmurs, rubs or gallops heard RESPIRATORY: Clear to auscultation. Breath sounds equal bilaterally. No rales , wheezing or rhonchi ABDOMEN: Soft, nondistended, started moving when I palpated his abdomen, but not guarding. Bowel sounds present and normoactive. EXTREMITIES: No clubbing, cyanosis, or edema. Cool feet. NEUROLOGICAL: Sedated PSYCHIATRIC: Unable to assess LINE: No evidence of infection : Gallegos in place, urine looks clear Laboratory Laboratory Tests Test 05/04/17 05/04/17 05/04/17 05/04/17 10:00 10:25 10:38 11:20 White Blood Count 42.8 Red Blood Count 5.84 Hemoglobin 16.7 Hematocrit 54.8 Mean Corpuscular Volume 93.9 Mean Corpuscular Hemoglobin 28.6 Mean Corpuscular Hemoglobin 30.5 Concent Red Cell Distribution Width 16.9 Platelet Count 284 Mean Platelet Volume 8.2 Neutrophils (%) (Auto) 81.4 Lymphocytes (%) (Auto) 5.9 Monocytes (%) (Auto) 12.4 Eosinophils (%) (Auto) 0.2 Basophils (%) (Auto) 0.1 Neutrophils # (Auto) 34.8 Lymphocytes # (Auto) 2.5 Monocytes # (Auto) 5.3 Eosinophils # (Auto) 0.1 Basophils # (Auto) 0.1 CBC Comment AUTO DIFF Differential Total Cells 100 Counted Neutrophils % (Manual) 70 Band Neutrophils % 7 Lymphocytes % 11 Monocytes % 11 Eosinophils % 1 Neutrophils # (Manual) 33.0 Differential Comment FINAL DIFF MANUAL Platelet Estimate NORMAL Platelet Morphology Comment NORMAL Jones-Strang Bodies PRESENT Crenated Cell 1+ Prothrombin Time 14.2 Prothromb Time International 1.3 Ratio Activated Partial 30.3 Thromboplast Time Urine Color YELLOW Urine Turbidity CLEAR Urine pH 5.5 Urine Specific Butler 1.027 Urine Protein 30 Urine Glucose (UA) 1000 Urine Ketones 150 Urine Occult Blood TRACE Urine Nitrite NEG Urine Bilirubin NEGATIVE Urine Urobilinogen LESS THAN 2.0 Urine Leukocyte Esterase NEGATIVE Urine RBC 1 Urine WBC LESS THAN 1 Urine Squamous Epithelial 1 Cells Urine Hyaline Casts 32 Urine Granular Casts 4 Urine Mucus FEW Microscopic Urinalysis Comment CATH-CULT NOT IND Sodium Level 142 Potassium Level 4.7 Chloride Level 111 Carbon Dioxide Level LESS THAN 5.0 Anion Gap 26 Blood Urea Nitrogen 21 Creatinine 1.39 Estimat Glomerular Filtration 52 Rate Random Glucose 445 Calcium Level 9.5 Phosphorus Level 7.0 Magnesium Level 2.8 Total Bilirubin 0.6 Aspartate Amino Transf 14 (AST/SGOT) Alanine Aminotransferase 13 (ALT/SGPT) Alkaline Phosphatase 72 Total Creatine Kinase 55 Troponin I LESS THAN 0.02 Total Protein 5.8 Albumin 3.0 Thyroid Stimulating Hormone 0.868 3rd Gen B-Hydroxybutyrate 10.19 Ammonia 90 Blood Gas Puncture Site LT BRACHIAL Blood Gas Patient Temperature 98.6 Blood Gas HCO3 3 Blood Gas Base Excess -27.0 Blood Gas Oxygen Saturation 98 Arterial Blood pH 6.92 Arterial Blood Partial 16 Pressure CO2 Arterial Blood Partial 495 Pressure O2 Arterial Blood Oxygen Content 21.7 Arterial Blood 0.7 Carboxyhemoglobin Arterial Blood Methemoglobin 1.0 Blood Gas Hemoglobin 14.9 Oxygen Delivery Device VENTILATOR Blood Gas Ventilator Setting AC/16/500/PEEP5 Blood Gas Inspired Oxygen 100 Lactic Acid Level 6.5 Test 05/04/17 14:06 Blood Gas Puncture Site LT RADIAL Blood Gas Patient Temperature 98.6 Blood Gas HCO3 3 Blood Gas Base Excess -26.0 Blood Gas Oxygen Saturation 97 Arterial Blood pH 7.00 Arterial Blood Partial 14 Pressure CO2 Arterial Blood Partial 313 Pressure O2 Arterial Blood Oxygen Content 19.7 Arterial Blood 1.3 Carboxyhemoglobin Arterial Blood Methemoglobin 1.5 Blood Gas Hemoglobin 14.0 Oxygen Delivery Device VENT Blood Gas Ventilator Setting Blood Gas Inspired Oxygen 50 Date/Time Procedure Status Source Growth 05/04/17 10:25 Aerobic Blood Culture Received Blood Peripheral Pending 05/04/17 10:25 Anaerobic Blood Culture Received Blood Peripheral Pending Result Diagram: 05/04/17 1000 05/04/17 1000 Imaging RADIOLOGY STUDIES/FILMS REVIEWED Head CT 05/04/17 0953 Signed Impressions: Service Date/Time: Thursday, May 04, 2017 11:01 - CONCLUSION: Negative for an acute process.. Han Aguilera MD FACR Chest X-Ray 05/04/17 0953 Signed Impressions: Service Date/Time: Thursday, May 04, 2017 10:05 - CONCLUSION: Sable chest with ET tube in good position. The patient does have a history melanoma. Han Aguilera MD FACR Abdomen/Pelvis CT 05/04/17 0000 Signed Impressions: Service Date/Time: Thursday, May 04, 2017 13:06 - CONCLUSION: 1. 2.2 cm simple cyst arising from the lower pole right kidney. 2. No definite abnormality to explain the patient's abdominal pain identified. 3. Degenerative changes within the lumbar spine. Salomon Aguilera MD Assessment and Plan Assessment and Plan IMPRESSION Sepsis on presentation, with hypothermia, altered mental status, tachycardia, elevated lactic acid - source? to be determined - ?due to metastatic melanoma Known metastatic melanoma with mets to brain and L axilla, has new lesions on recent MRI DM, DKA - ?infection - ?worsen by steroids Respiratory failure due to decreased LOC, CXR is clear Encephalopathy, etiology? - ?due to [employer] mets - ?did he have seizure - he received hydrocortisone last admission, ?try decadron RECOMMENDATION Follow C/S Continue empiric Abx: Vanco and Zosyn ?Repeat brain MRI ?Try decadron On Rx for DKA Monitor progress Very poor prognosis from his metastatic melanoma I will follow along with you Thank you for this consultation Sylvia Simmons MD May 04, 2017 16:39
[2017-05-04 17:50] LABS: BLOOD GAS CARBOXYHEMOGLOBIN 1.6 % (0-4); BLOOD GAS HCO3 6 mmol/L (22-26); BLOOD GAS METHEMOGLOBIN 1.4 % (0-2); BLOOD GAS O2 HGB SATURATION 97 % (90-100); BLOOD GAS OXYGEN CONTENT 19.2 Vol % (12.0-20.0); BLOOD GAS PCO2 13 mmHg (38-42); BLOOD GAS PO2 251 mmHg (61-120); BLOOD GAS TOTAL HGB 13.8 G/DL (12.0-16.0); TEMP CORR TO 98.6
[2017-05-04 17:51] LABS: CRITICAL VALUE YES; DRAW SITE LT BRACHIAL; FIO2 40 %; NUMBER OF ARTERIAL PUNCTURES 1; OXYGEN DEVICE VENTILATOR; STAT NO; VENT SETTINGS A/C 500/16/5PEEP
[2017-05-04] MEDS: LACTULOSE SYRUP 20 GM/30 ML CUP PO SCH (18:39)
--- NOTE | 2017-05-04 19:00 | MB ---
cc: GROVER JOSÉ M.D. DATE OF CONSULTATION 05/04/2017 REASON FOR CONSULTATION Consult requested by ER physician, Dr. Osorio for evaluation of metastatic malignant melanoma. HISTORY OF PRESENT ILLNESS Sohan is a 56-year-old male. He is under the care of Dr. Lofton. The patient has metastatic malignant melanoma to the brain. He was originally found to have left upper abdominal mass in 2012 which was resected and turned out to be melanoma. He was doing fine up until June of 2016 he developed metastatic disease to the brain. At the same time he was found to have left axillary lymphadenopathy. He underwent craniotomy and resection of the tumor of the brain and the pathology report showed metastatic malignant melanoma. It was BRAF mutation positive. He also had left axillary lymph node dissection and 3 out of 12 lymph nodes were positive for metastatic malignant melanoma. He subsequently whole-brain radiation therapy for progressive tumor in the brain. He recently about 4 months ago had stereotactic radiosurgery for recurrent solitary brain metastasis. The patient has been treated with Keytruda. The patient recently was found to be more confused and extremely weak. He was admitted to the hospital. He was evaluated by radiation oncology, Dr. Lopez and Dr. Lofton. He was found to have two new lesions in the brain and plan was to do radiation therapy as an outpatient. He was discharged to home 2 days ago. The patient was brought into the emergency room as he was not doing well at home. He was found to be unresponsive. He is now intubated and admitted to into the Intensive Care Unit. The patient was found to have DKA. Formula Checker is managing the DKA. We have been asked to see the patient. The patient appears to be very cachectic, unable to give any history as he is on the ventilator. REVIEW OF SYSTEMS Not possible, the patient is on the ventilator. PAST MEDICAL HISTORY 1. Stage IV malignant melanoma. 2. Diabetes mellitus. 3. Depression. 4. Anxiety. 5. Cirrhosis. PAST SURGICAL HISTORY 1. Left craniotomy and left axillary dissection and 2016. 2. Right knee surgery. 3. Excision of the melanoma from the abdominal wall in 2012. ALLERGIES None. MEDICATIONS 1. Marinol. 2. Megace. 3. Metformin. 4. Remeron. 5. OxyContin. MEDICATIONS Please see EMR. FAMILY HISTORY Unable to obtain. SOCIAL HISTORY Unable to obtain. PHYSICAL EXAMINATION GENERAL: This is a well-developed, cachectic appearing white male who is on the ventilator. VITAL SIGNS: Temperature 94.1, heart rate is 102, blood pressure 126/57, O2 saturation 100% on ventilator. HEENT: Bitemporal wasting noted. ET-tube noted. NECK: No lymphadenopathy. LUNGS: Are clear. No wheezing, rhonchi or rales. CARDIOVASCULAR: Heart is tachycardia with no murmur. ABDOMEN: Soft. Bowel sounds are present. EXTREMITIES: No pedal edema. NEUROLOGIC: The patient is sedated on the ventilator. ASSESSMENT 1. Metastatic malignant melanoma with progressive disease in the brain. 2. DKA. 3. Respiratory failure on the ventilator. PLAN I have reviewed his available records. The patient is under the care of the ophthalmic asst for DKA. The patient had a CT scan of the head which is negative for any acute process. The CT of the abdomen and pelvis showed a 2.2 cm simple cyst arising from the lower pole of the right kidney. There is no definite abnormality to explain the patient's abdominal pain. He had CT scan of the abdomen and pelvis last week also when he was admitted which does not show any metastatic disease, but did show cirrhosis of the liver with portal hypertension and splenomegaly. The CT of the chest does not show any metastatic disease either. Last week he had an MRI of the brain which showed two lesions seen within the right parietal cortex, the largest measures 1 cm. The second measures 8 mm. These are consistent with metastatic disease. There is surrounding vasogenic edema. Dr. Lopez saw the patient last week and he had recommended to do stereotactic radiosurgery as an outpatient. The patient appears to be very cachectic. He is in DKA, his blood sugar is 445. The anion gap is 26. Palliative care was consulted. They have called the patient's who wanted everything done. Subsequently the patient was intubated. Infectious disease has been consulted as well. At this point my recommendation is best supportive care with hospice. Palliative care is involved in the management and they will speak to his who is coming later this evening to discuss further. Dr. Lofton will see him tomorrow as he is off today. Thank you for asking my opinion. MD HAILEY Felix/BRIAN /4:56 PM /6:52 PM
[2017-05-04 19:33] LABS: MAGNESIUM 2.3 MG/DL (1.5-2.5); POTASSIUM 3.1 MEQ/L (3.5-5.1)
[2017-05-04 19:48] LABS: BETA-HYDROXYBUTYRATE 8.6 MMOL/L (0.00-0.39)
[2017-05-04] MEDS: PIPERACIL-TAZO 4.5 GM PREMIX 100 ML IV SCH (20:04)
[2017-05-04] MEDS: DOCUSATE SODIUM 50 MG/SENNA 8.6 MG TAB PO SCH (20:04)
[2017-05-05] VITALS (37 sets, daily range): BP systolic 90–131; BP diastolic 63–83; PULSE 86–137; RESP 13–20; TEMP 98.6–100.9; O2SAT 99–100
[2017-05-05 00:56] LABS: BICARBONATE 26.8 MEQ/L (21.0-32.0); MAGNESIUM 1.9 MG/DL (1.5-2.5)
[2017-05-05 00:59] LABS: POTASSIUM 2.4 MEQ/L (3.5-5.1)
[2017-05-05] MEDS: RESP: ALBUTEROL 2.5 MG/IPRATROPIUM 0.5 MG NEB (SCH) INH ×8 (00:59→23:34)
[2017-05-05] MEDS ORDERED: POTASSIUM PHOSPHATE INJ 30 MMOL in SODIUM CHLOR 0.9% 250 ML INJ 250 ML IV ONE (01:00)
[2017-05-05] MEDS: POTASSIUM CHLOR 20 MEQ PREMIX 100 ML IV PRN ×7 (01:11→19:20)
[2017-05-05] MEDS ORDERED: POTASSIUM CHLORIDE 25 MEQ EFFERVESCENT TAB PO ONE (01:30)
[2017-05-05 01:48] LABS: BLOOD GAS BASE EXCESS -7.4 mmol/L (-2-2); BLOOD GAS CARBOXYHEMOGLOBIN 1.7 % (0-4); BLOOD GAS HCO3 16 mmol/L (22-26); BLOOD GAS METHEMOGLOBIN 1.4 % (0-2); BLOOD GAS O2 HGB SATURATION 97 % (90-100); BLOOD GAS OXYGEN CONTENT 17.4 Vol % (12.0-20.0); BLOOD GAS PCO2 22 mmHg (38-42); BLOOD GAS PO2 230 mmHg (61-120); BLOOD GAS TOTAL HGB 12.4 G/DL (12.0-16.0); TEMP CORR TO 98.6
[2017-05-05 01:49] LABS: CRITICAL VALUE YES; DRAW SITE LT RADIAL; FIO2 40 %; NUMBER OF ARTERIAL PUNCTURES 1; OXYGEN DEVICE VENTILATOR; STAT YES; ULNAR PULSE PRESENT; VENT SETTINGS AC16/500/+5
[2017-05-05] MEDS ORDERED: DEXT 5%-NACL 0.45% 1000 ML INJ 1,000 ML IV SCH (02:00)
[2017-05-05] MEDS: POTASSIUM CHLOR 10 MEQ PREMIX 100 ML IV SCH ×2 (02:00→03:00)
[2017-05-05] MEDS ORDERED: MIDAZOLAM HCL 5 MG/ML VIAL (1 ML) ONE (02:37)
[2017-05-05] MEDS ORDERED: MIDAZOLAM HCL 2 MG/2 ML VIAL IV PUSH ONE (02:45)
[2017-05-05] MEDS ORDERED: ROCURONIUM INJ 50 MG/5 ML VIAL IV ONE (02:45)
--- NOTE | 2017-05-05 03:13 | PD.PROCEDR ---
Procedure Note Procedure DATE: 05/05/17 CENTRAL LINE PLACEMENT: Right subclavian vein INDICATION: Central venous access CONSENT Informed consent for procedure was obtained from after discussion of risks , benefits, alternatives. Consent was witnessed by RN and is on the chart. DESCRIPTION OF THE PROCEDURE The patient was placed in supine position, Trendelenburg. His palm was retracted and taped out of the sterile field. The skin was cleansed with Chloraprep 3. Additional barrier precautions included large sterile drape, sterile gloves, sterile gown, face mask, and hat. 1 % lidocaine was used for local anesthesia. On single attempt, the vein was accessed with an introducer needle. The guide wire was advanced and the tract was dilated. Using Seldinger technique a 7 Frisian 20 cm antimicrobial coated triple-lumen catheter was advanced to a depth of 16.5 centimeters. The guide wire was removed. All ports had good return of dark venous blood and flushed easily with saline. The central line was secured with 2.0 silk. A sterile dressing with antibiotic disc was applied. ESTIMATED BLOOD LOSS: Minimal COMPLICATIONS: No apparent complications. STAT chest x-ray is pending Evie Thomason MD May 05, 2017 03:13
[2017-05-05] MEDS: CHLORHEXIDINE GLUCONATE 2 % 1 PACK (2 CLOTHS) TOP SCH (04:00)
[2017-05-05 04:33] LABS: AUTOMATED NEUTROPHIL # 8.9 TH/MM3 (1.8-7.7); BASOPHIL % 0.1 % (0.0-2.0); EOSINOPHIL % 0.1 % (0.0-4.0); HEMATOCRIT 37.7 % (39.0-51.0); LYMPH % 1.9 % (9.0-44.0); LYMPHOCYTE # 0.2 TH/MM3 (1.0-4.8); MEAN CELL VOLUME 85.1 FL (80.0-100.0); MEAN CORPUSCULAR HGB CONC 34.1 % (32.0-36.0); MONO % 14.7 % (0.0-8.0); NEUT % 83.2 % (16.0-70.0); PLATELET COUNT 47 TH/MM3 (150-450); RED BLOOD COUNT 4.43 MIL/MM3 (4.50-5.90); RED CELL DISTRIBUTION WIDTH 14.5 % (11.6-17.2); WHITE BLOOD COUNT 10.7 TH/MM3 (4.0-11.0)
[2017-05-05 04:39] LABS: HEMO FLAGS AUTO DIFF
[2017-05-05] MEDS: SODIUM BICARBONATE 8.4% INJ 150 MEQ in WATER STERILE FOR INJ 850 ML IV SCH ×2 (04:40→09:49)
[2017-05-05] MEDS: PIPERACIL-TAZO 4.5 GM PREMIX 100 ML IV SCH ×3 (04:47→20:02)
--- NOTE | 2017-05-05 04:48 | RADRPT ---
EXAM DATE/TIME: 05/05/2017 03:24 [facility] COMPARISON: CHEST SINGLE AP, May 04, 2017, 10:05. INDICATIONS : Central line placement. MEDICAL HISTORY : Diabetes mellitus type 2. Melanoma. SURGICAL HISTORY : None. ENCOUNTER: Subsequent ACUITY: 2 weeks PAIN SCORE: 0/10 LOCATION: Bilateral chest FINDINGS: No infiltrate, effusion or pneumothorax demonstrated. Heart size stable, within normal limits. New right subclavian central venous catheter present, tip at atrial caval junction. Endotracheal tube tip is approximately 3 cm above the nawaf. There is a nasogastric tube coursing in to the stomach. Old, healed left rib fractures are again seen. CONCLUSION: 1. New right subclavian central venous catheter with tip at the atriocaval junction. No pneumothorax or other acute complication demonstrated. 2. Unchanged endotracheal tube and nasogastric tube. 3. No infiltrate. 4. Old left rib fractures. Evelio Frankel MD on May 05, 2017 at 4:45 Board Certified Radiologist. This report was verified electronically.
[2017-05-05 05:15] LABS: ALKALINE PHOSPHATASE 39 U/L (45-117); ALT (GPT) 14 U/L (12-78); ANION GAP 13 MEQ/L (5-15); AST (GOT) 22 U/L (15-37); BICARBONATE 21.3 MEQ/L (21.0-32.0); BLOOD UREA NITROGEN 23 MG/DL (7-18); CHLORIDE 118 MEQ/L (98-107); GLOMERULAR FILTRATION RATE 48 ML/MIN (>89); MAGNESIUM 2.1 MG/DL (1.5-2.5); POTASSIUM 3.3 MEQ/L (3.5-5.1); SODIUM (NA) 152 MEQ/L (136-145); TOTAL BILIRUBIN ADULT 0.8 MG/DL (0.2-1.0)
[2017-05-05 05:27] LABS: PLATELET ESTIMATE SMEAR LOW (NORMAL); PLATELET MORPHOLOGY NORMAL (NORMAL); SCAN/DIFF AUTO DIFF CONFIRMED
[2017-05-05] MEDS: INSULIN REGULAR (IV INFUSION) 100 UNITS in SODIUM CHLORIDE 0.9% INJ 99 ML IV SCH (05:55)
--- NOTE | 2017-05-05 08:51 | HHI.CCPN ---
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 The patient was last seen normal yesterday. He was unresponsive and not responding to any verbal stimuli. The patient was given Narcan 2 mg IV without any significant effect. He was recently discharged from the hospital on May 02 after he was admitted back on April 25 for DKA and dehydration. Due to altered mental status the patient was subsequently intubated with etomidate and succinylcholine and placed on full mechanical ventilation. On arrival to the ER he was hypothermic with temperature of 93.8 rectally, tachycardiac with heart rate of 107 and a blood pressure of 107/65. Post intubation his ABG showed severe metabolic acidosis with a pH of 6.92, CO2 16, PAO2 495, bicarb 3 and saturation 98% on assist control ventilation with a rate of 16, tidal volume 500, PEEP of 5 and FIO2 100%. His laboratory data was significant for lactic acidemia with lactic acid level 6.5. In addition the patient was found to be in DKA with a blood sugar of 445, anion gap of 26 and beta-hydroxybutyrate of 10.1. The patient was noted to have significant leukocytosis with a WBC of 42.8. In the ER he was given one amp of sodium bicarb, 6 units IV push of regular insulin, vancomycin, Zosyn and 2 liters of crystalloids. He is about to go on an insulin drip per DKA protocol. CT scan of the brain was obtained in the ER which was negative for acute process. He also had a chest x-ray post intubation which showed ET tube in good position and clear lungs. A CT scan of the abdomen and pelvis was performed, however, results are pending during the time of this dictation. On his prior admission he had CT abdomen and pelvis on May 01 which showed no metastatic disease to the abdomen and pelvis, cirrhosis of the liver as well as portal hypertension. CT chest on May 01 as well showed focal patchiness within the right lower lobe consistent with a possible pneumonia, otherwise no definite metastatic disease to the chest. An MRI of the brain was obtained as well on May 01 which showed brain mets. 05/05 Patient remains sedated with Diprivan and intubated. On Insulin drip 12u/hr , bicarb drip. T:101.3 Objective Vital Signs Date Time Temp Pulse Resp B/P Pulse Ox O2 Delivery O2 Flow Rate FiO2 05/05/17 08:27 100 40 05/05/17 07:00 101.3 126 18 127/82 05/04/17 12:30 Ventilator Intake and Output 05/04/17 05/04/17 05/05/17 08:00 16:00 00:00 Intake Total 1887 ml 1481 ml Output Total 450 ml 30 ml Balance 1437 ml 1451 ml Result Diagram: 05/05/17 0415 05/05/17 0415 Other Results Laboratory Tests Test 05/04/17 05/04/17 05/04/17 05/04/17 10:00 10:25 10:38 11:20 White Blood Count 42.8 TH/MM3 Red Blood Count 5.84 MIL/MM3 Hemoglobin 16.7 GM/DL Hematocrit 54.8 % Mean Corpuscular Volume 93.9 FL Mean Corpuscular Hemoglobin 28.6 PG Mean Corpuscular Hemoglobin 30.5 % Concent Red Cell Distribution Width 16.9 % Platelet Count 284 TH/MM3 Mean Platelet Volume 8.2 FL Neutrophils (%) (Auto) 81.4 % Lymphocytes (%) (Auto) 5.9 % Monocytes (%) (Auto) 12.4 % Eosinophils (%) (Auto) 0.2 % Basophils (%) (Auto) 0.1 % Neutrophils # (Auto) 34.8 TH/MM3 Lymphocytes # (Auto) 2.5 TH/MM3 Monocytes # (Auto) 5.3 TH/MM3 Eosinophils # (Auto) 0.1 TH/MM3 Basophils # (Auto) 0.1 TH/MM3 CBC Comment AUTO DIFF Differential Total Cells 100 Counted Neutrophils % (Manual) 70 % Band Neutrophils % 7 % Lymphocytes % 11 % Monocytes % 11 % Eosinophils % 1 % Neutrophils # (Manual) 33.0 TH/MM3 Differential Comment FINAL DIFF MANUAL Platelet Estimate NORMAL Platelet Morphology Comment NORMAL Jones-De Motte Bodies PRESENT Crenated Cell 1+ Prothrombin Time 14.2 SEC Prothromb Time International 1.3 RATIO Ratio Activated Partial 30.3 SEC Thromboplast Time Urine Color YELLOW Urine Turbidity CLEAR Urine pH 5.5 Urine Specific [place] 1.027 Urine Protein 30 mg/dL Urine Glucose (UA) 1000 mg/dL Urine Ketones 150 mg/dL Urine Occult Blood TRACE Urine Nitrite NEG Urine Bilirubin NEGATIVE Urine Urobilinogen LESS THAN 2.0 MG/DL Urine Leukocyte Esterase NEGATIVE Urine RBC 1 /hpf Urine WBC LESS THAN 1 /hpf Urine Squamous Epithelial 1 /hpf Cells Urine Hyaline Casts 32 /lpf Urine Granular Casts 4 /lpf Urine Mucus FEW /lpf Microscopic Urinalysis Comment CATH-CULT NOT IND Sodium Level 142 MEQ/L Potassium Level 4.7 MEQ/L Chloride Level 111 MEQ/L Carbon Dioxide Level LESS THAN 5.0 MEQ/L Anion Gap 26 MEQ/L Blood Urea Nitrogen 21 MG/DL Creatinine 1.39 MG/DL Estimat Glomerular Filtration 52 ML/MIN Rate Random Glucose 445 MG/DL Calcium Level 9.5 MG/DL Phosphorus Level 7.0 MG/DL Magnesium Level 2.8 MG/DL Total Bilirubin 0.6 MG/DL Aspartate Amino Transf 14 U/L (AST/SGOT) Alanine Aminotransferase 13 U/L (ALT/SGPT) Alkaline Phosphatase 72 U/L Total Creatine Kinase 55 U/L Troponin I LESS THAN 0.02 NG/ML Total Protein 5.8 GM/DL Albumin 3.0 GM/DL Thyroid Stimulating Hormone 0.868 uIU/ML 3rd Gen B-Hydroxybutyrate 10.19 MMOL/L Ammonia 90 MCMOL/L Blood Gas Puncture Site LT BRACHIAL Blood Gas Patient Temperature 98.6 Blood Gas HCO3 3 mmol/L Blood Gas Base Excess -27.0 mmol/L Blood Gas Oxygen Saturation 98 % Arterial Blood pH 6.92 Arterial Blood Partial 16 mmHg Pressure CO2 Arterial Blood Partial 495 mmHG Pressure O2 Arterial Blood Oxygen Content 21.7 Vol % Arterial Blood 0.7 % Carboxyhemoglobin Arterial Blood Methemoglobin 1.0 % Blood Gas Hemoglobin 14.9 G/DL Oxygen Delivery Device VENTILATOR Blood Gas Ventilator Setting AC/16/500/PEEP5 Blood Gas Inspired Oxygen 100 % Lactic Acid Level 6.5 mmol/L Test 05/04/17 05/04/17 05/04/17 05/04/17 13:10 14:06 15:37 17:44 Nasal Screen MRSA (PCR) MRSA NOT DETECTED Blood Gas Puncture Site LT RADIAL LT BRACHIAL Blood Gas Patient Temperature 98.6 98.6 Blood Gas HCO3 3 mmol/L 6 mmol/L Blood Gas Base Excess -26.0 mmol/L -21.0 mmol/L Blood Gas Oxygen Saturation 97 % 97 % Arterial Blood pH 7.00 7.24 Arterial Blood Partial 14 mmHg 13 mmHg Pressure CO2 Arterial Blood Partial 313 mmHg 251 mmHg Pressure O2 Arterial Blood Oxygen Content 19.7 Vol % 19.2 Vol % Arterial Blood 1.3 % 1.6 % Carboxyhemoglobin Arterial Blood Methemoglobin 1.5 % 1.4 % Blood Gas Hemoglobin 14.0 G/DL 13.8 G/DL Oxygen Delivery Device VENT VENTILATOR Blood Gas Ventilator Setting A/C 500/16/5PEEP Blood Gas Inspired Oxygen 50 % 40 % Lactic Acid Level 3.0 mmol/L Test 05/04/17 05/04/17 05/04/17 05/05/17 18:27 18:37 22:30 00:19 Sodium Level 148 MEQ/L 152 MEQ/L Potassium Level 3.1 MEQ/L 2.4 MEQ/L Chloride Level 117 MEQ/L 112 MEQ/L Carbon Dioxide Level 6.0 MEQ/L 26.8 MEQ/L Anion Gap 25 MEQ/L 13 MEQ/L Blood Urea Nitrogen 23 MG/DL 24 MG/DL Creatinine 1.38 MG/DL 1.44 MG/DL Estimat Glomerular Filtration 53 ML/MIN 50 ML/MIN Rate Random Glucose 290 MG/DL 268 MG/DL Calcium Level 9.1 MG/DL 8.4 MG/DL Phosphorus Level 1.0 MG/DL 0.2 MG/DL Magnesium Level 2.3 MG/DL 1.9 MG/DL B-Hydroxybutyrate 8.60 MMOL/L Lactic Acid Level 3.4 mmol/L 3.5 mmol/L Test 05/05/17 05/05/17 01:25 04:15 Blood Gas Puncture Site LT RADIAL Blood Gas Patient Temperature 98.6 Blood Gas HCO3 16 mmol/L Blood Gas Base Excess -7.4 mmol/L Blood Gas Oxygen Saturation 97 % Arterial Blood pH 7.47 Arterial Blood Partial 22 mmHg Pressure CO2 Arterial Blood Partial 230 mmHg Pressure O2 Arterial Blood Oxygen Content 17.4 Vol % Arterial Blood 1.7 % Carboxyhemoglobin Arterial Blood Methemoglobin 1.4 % Blood Gas Hemoglobin 12.4 G/DL Oxygen Delivery Device VENTILATOR Blood Gas Ventilator Setting AC16/500/+5 Blood Gas Inspired Oxygen 40 % White Blood Count 10.7 TH/MM3 Red Blood Count 4.43 MIL/MM3 Hemoglobin 12.8 GM/DL Hematocrit 37.7 % Mean Corpuscular Volume 85.1 FL Mean Corpuscular Hemoglobin 29.0 PG Mean Corpuscular Hemoglobin 34.1 % Concent Red Cell Distribution Width 14.5 % Platelet Count 47 TH/MM3 Mean Platelet Volume 7.9 FL Neutrophils (%) (Auto) 83.2 % Lymphocytes (%) (Auto) 1.9 % Monocytes (%) (Auto) 14.7 % Eosinophils (%) (Auto) 0.1 % Basophils (%) (Auto) 0.1 % Neutrophils # (Auto) 8.9 TH/MM3 Lymphocytes # (Auto) 0.2 TH/MM3 Monocytes # (Auto) 1.6 TH/MM3 Eosinophils # (Auto) 0.0 TH/MM3 Basophils # (Auto) 0.0 TH/MM3 CBC Comment AUTO DIFF Differential Comment AUTO DIFF CONFIRMED Platelet Estimate LOW Platelet Morphology Comment NORMAL Sodium Level 152 MEQ/L Potassium Level 3.3 MEQ/L Chloride Level 118 MEQ/L Carbon Dioxide Level 21.3 MEQ/L Anion Gap 13 MEQ/L Blood Urea Nitrogen 23 MG/DL Creatinine 1.49 MG/DL Estimat Glomerular Filtration 48 ML/MIN Rate Random Glucose 203 MG/DL Lactic Acid Level 3.2 mmol/L Calcium Level 9.1 MG/DL Phosphorus Level 0.5 MG/DL Magnesium Level 2.1 MG/DL Total Bilirubin 0.8 MG/DL Aspartate Amino Transf 22 U/L (AST/SGOT) Alanine Aminotransferase 14 U/L (ALT/SGPT) Alkaline Phosphatase 39 U/L Ammonia 40 MCMOL/L Total Protein 4.9 GM/DL Albumin 2.6 GM/DL B-Hydroxybutyrate 2.70 MMOL/L Imaging Last Impressions Chest X-Ray 05/05/17 0000 Signed Impressions: Service Date/Time: Friday, May 05, 2017 03:24 - CONCLUSION: 1. New right subclavian central venous catheter with tip at the atriocaval junction. No pneumothorax or other acute complication demonstrated. 2. Unchanged endotracheal tube and nasogastric tube. 3. No infiltrate. 4. Old left rib fractures. Evelio Frankel MD Head CT 05/04/17 0953 Signed Impressions: Service Date/Time: Thursday, May 04, 2017 11:01 - CONCLUSION: Negative for an acute process.. Han Aguilera MD FACR Abdomen/Pelvis CT 05/04/17 0000 Signed Impressions: Service Date/Time: Thursday, May 04, 2017 13:06 - CONCLUSION: 1. 2.2 cm simple cyst arising from the lower pole right kidney. 2. No definite abnormality to explain the patient's abdominal pain identified. 3. Degenerative changes within the lumbar spine. Salomon Aguilera MD Objective Remarks GENERAL: Patient is 56 yo critically ill intubated and sedated SKIN: Warm and dry. HEAD: Normocephalic. EYES: No scleral icterus. No injection or drainage. NECK: Supple, trachea midline. No JVD or lymphadenopathy. CARDIOVASCULAR: Regular rate and rhythm without murmurs, gallops, or rubs. RESPIRATORY: Breath sounds equal bilaterally. No accessory muscle use. GASTROINTESTINAL: Abdomen soft, non-tender, nondistended. MUSCULOSKELETAL: No cyanosis, or edema. Neuro: Sedated, intubated A/P Assessment and Plan 1. VDRF. 2. Diabetic ketoacidosis. 3. AG metabolic acidosis...closed 4. Lactic acidemia...trending down 5. Acute kidney injury. 6. Leukocytosis. 7. Encephalopathy. 8. Metastatic melanoma to brain and left axilla. 9. History of hepatitis B. 10. Anemia, Thrombocytopenia PLAN Neuro: On Diprivan infusion for sedation, daily sedation vacation. Monitor neuro status on lactulose 15 mL t.i.d. Ammonia level 40 today from [address] brain in the ED negative for acute disease; MRI brain from 05/01 showed brain mets with surrounding vasogenic edema. Pulm: Continue with vent support and maintain sats > 92%. Bronchodilators, ICU vent bundle. Decrease RR 12 and repeat ABG CV: Monitor HR and BP and maintain MAP > 65 mmHg. Serial lactic acid monitoring. Lactic acid trending down. Echo from July 2016 which showed an EF of 55-60% with no regional wall motion abnormalities. : Monitor renal function, I's and O's and avoid nephrotoxins. On SW+3amps bicarb at 75 mL an hour. Recheck lactic acid level and BMP Place on Free water 250ml Q8 monitor sodium level. Change D51/2NS to D5W@50ml/hr GI: Protonix 40 mg IV daily for GI prophylaxis. Start tube feeds- Jevity 1.5 with goal rate 45ml/hr CT abd/pelvis: No acute abd. abnormalities ID: Continue with abx(vancomycin and Zosyn)monitor for signs of infections( fever and WBC). ID service is following- Follow up on BC from 05/04 CXR: ETT above nawaf, no infiltrates. Endo:Transition insulin drip to SSI with long acting insulin. AG is closed TSH level measured at 0.86. Heme: Monitor CBC and coags. Check Fibrinogen level. Oncology service is following. Patient was seen by radiation oncology on previous admission and was recommended stereotactic radiotherapy as outpatient. GI prophylaxis with Protonix 40 mg daily and DVT prophylaxis with SCDs. Not on chemical AC prophylaxis 2nd brain mets and thrombocytopenia. Palliative service is following. Overall prognosis is poor and Oncology is recommending hospice . Lines: Right subclavian central line placed 05/05 CCT 30 mins. Sourav Brink MD May 05, 2017 08:50
[2017-05-05] MEDS: FREE WATER G-TUBE SCH ×3 (09:00→22:00)
[2017-05-05] MEDS ORDERED: DEXTROSE 50% IN WATER 50 ML VIAL(D50) IV PRN (09:15)
[2017-05-05] MEDS ORDERED: GLUCAGON 1 MG/ML VIAL OTHER PRN (09:15)
[2017-05-05] MEDS: INSULIN NovoLIN REGULAR SUPPLEMENTAL SCALE SQ SCH ×4 (09:15→20:04)
[2017-05-05] MEDS: PANTOPRAZOLE SODIUM 40 MG VIAL IV SCH (09:48)
[2017-05-05] MEDS: DEXTROSE 5% IN WATE 1000ML INJ 1,000 ML IV SCH (09:48)
[2017-05-05] MEDS: LACTULOSE SYRUP 20 GM/30 ML CUP PO SCH ×3 (09:49→17:25)
[2017-05-05] MEDS: DOCUSATE SODIUM 50 MG/SENNA 8.6 MG TAB PO SCH ×2 (09:49→20:02)
[2017-05-05 09:59] LABS: POTASSIUM 2.8 MEQ/L (3.5-5.1)
[2017-05-05] MEDS ORDERED: POTASSIUM PHOSPHATE MONOBASIC 500 MG TAB PO/TUBE PRN (10:15)
[2017-05-05] MEDS ORDERED: SODIUM PHOSPHATE INJ 30 MMOL in SODIUM CHLOR 0.9% 250 ML INJ 240 ML IV PRN (10:15)
[2017-05-05] MEDS ORDERED: MAGNESIUM SULFATE INJ 2 GM in SODIUM CHLORIDE 0.9% INJ 96 ML IV PRN (10:15)
[2017-05-05] MEDS ORDERED: POTASSIUM CHLOR 40 MEQ PREMIX 100 ML IV PRN ×2 (10:15)
[2017-05-05] MEDS ORDERED: POTASSIUM CHLOR 20 MEQ PREMIX 100 ML IV PRN (10:15)
[2017-05-05] MEDS ORDERED: MAGNESIUM OXIDE 400 MG TAB PO PRN (10:15)
[2017-05-05] MEDS ORDERED: MAGNESIUM SULFATE INJ 4 GM in SODIUM CHLORIDE 0.9% INJ 92 ML IV PRN (10:15)
[2017-05-05] MEDS ORDERED: POTASSIUM PHOSPHATE INJ 30 MMOL in SODIUM CHLOR 0.9% 250 ML INJ 250 ML IV PRN (10:15)
[2017-05-05] MEDS ORDERED: POTASSIUM PHOSPHATE MONOBASIC 500 MG TAB PO PRN (10:15)
[2017-05-05] MEDS ORDERED: POTASSIUM CHLORIDE 25 MEQ EFFERVESCENT TAB PO PRN (10:15)
[2017-05-05] MEDS: VANCOMYCIN 1,000 MG/NS 250 ML IV SCH ×2 (10:16)
[2017-05-05] MEDS: INSULIN DETEMIR 100 UNITS/ML VIAL SQ SCH ×2 (10:18→20:02)
[2017-05-05 10:37] LABS: BLOOD GAS BASE EXCESS -3.2 mmol/L (-2-2); BLOOD GAS CARBOXYHEMOGLOBIN 1.7 % (0-4); BLOOD GAS HCO3 20 mmol/L (22-26); BLOOD GAS METHEMOGLOBIN 1.2 % (0-2); BLOOD GAS O2 HGB SATURATION 97 % (90-100); BLOOD GAS OXYGEN CONTENT 16.8 Vol % (12.0-20.0); BLOOD GAS PCO2 27 mmHg (38-42); BLOOD GAS PO2 204 mmHg (61-120); TEMP CORR TO 98.6
[2017-05-05 10:38] LABS: CRITICAL VALUE NO; DRAW SITE LT RADIAL; FIO2 40 %; NUMBER OF ARTERIAL PUNCTURES 1; OXYGEN DEVICE VENTILATOR; STAT NO; ULNAR PULSE PRESENT
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
[2017-05-05 10:51] LABS: AUTOMATED NEUTROPHIL # 8.8 TH/MM3 (1.8-7.7); EOSINOPHIL % 0.1 % (0.0-4.0); HEMATOCRIT 34.8 % (39.0-51.0); LYMPH % 6.7 % (9.0-44.0); LYMPHOCYTE # 0.8 TH/MM3 (1.0-4.8); MEAN CELL VOLUME 84.1 FL (80.0-100.0); MEAN CORPUSCULAR HEMOGLOBIN 29.4 PG (27.0-34.0); MEAN CORPUSCULAR HGB CONC 34.9 % (32.0-36.0); MONO % 14.7 % (0.0-8.0); NEUT % 78.5 % (16.0-70.0); PLATELET COUNT 37 TH/MM3 (150-450); RED BLOOD COUNT 4.14 MIL/MM3 (4.50-5.90); RED CELL DISTRIBUTION WIDTH 14.5 % (11.6-17.2); WHITE BLOOD COUNT 11.2 TH/MM3 (4.0-11.0)
[2017-05-05 10:53] LABS: HEMO FLAGS AUTO DIFF
[2017-05-05 11:00] LABS: INTERNATIONAL NORMALIZED RATIO 1.4 RATIO; PROTHROMBIN TIME - PATIENT 15.3 SEC (9.8-11.6)
[2017-05-05] MEDS: PROPOFOL 1000 MG/100 ML INJ 100 ML IV SCH ×2 (11:26→22:43)
[2017-05-05 11:37] LABS: BANDS 46 % (0-6); NEUTROPHIL # MANUAL DIFF 9.5 TH/MM3 (1.8-7.7); POLYS (SEG NEUTROPHILS) 39 % (16-70); WBC DIFF SAMPLE 100
[2017-05-05 11:38] LABS: OVALOCYTES 1+ (NORMAL); PLATELET ESTIMATE SMEAR LOW (NORMAL); PLATELET MORPHOLOGY NORMAL (NORMAL); SCAN/DIFF FINAL DIFF MANUAL
--- NOTE | 2017-05-05 12:49 | HHI.IDPN ---
Subjective Subjective Remarks Patient is a 56-year-old male with history of metastatic melanoma, with metastases to the brain and lymph nodes in the axilla, recently hospitalized April 25 2 May 02 with dehydration, failure to thrive, and DKA. He was found to have HRBP lesions. And no other evidence of metastatic disease on his other imaging studies of the chest, abdomen or pelvis. He went to the senior living, and apparently on the day of admission patient was found to be unresponsive. He was given Narcan with no improvement. He was brought into the hospital, and ended up getting intubated. He has evidence of sepsis, he was hypothermic, significant leukocytosis, and elevated lactic acid. His chest x-ray is normal. CT of the abdomen and pelvis is unremarkable. CT of the head without contrast did not show any acute pathology, or bleed. His urinalysis is unremarkable. Patient has been started on broad-spectrum antibiotics. Infectious disease consultation has been requested to evaluate the patient for sepsis and leukocytosis. 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 Vital Signs Date Time Temp Pulse Resp B/P Pulse Ox O2 Delivery O2 Flow Rate FiO2 05/05/17 12:15 35 05/05/17 12:07 35 05/05/17 12:00 40 05/05/17 12:00 124 05/05/17 12:00 100.6 124 18 115/83 100 05/05/17 11:00 100.4 123 18 104/73 100 05/05/17 10:52 100 40 05/05/17 10:30 100.8 120 16 106/74 100 05/05/17 10:00 100.9 111 19 90/63 99 05/05/17 10:00 111 05/05/17 09:30 100.9 122 17 113/80 100 6/20/17 09:00 100.9 119 16 110/83 100 05/05/17 08:30 101.1 115 19 106/79 100 05/05/17 08:27 100 40 05/05/17 08:00 40 05/05/17 08:00 100.9 115 19 105/74 100 05/05/17 08:00 115 05/05/17 07:00 101.3 126 18 127/82 100 05/05/17 06:00 101.3 123 19 99/71 100 05/05/17 06:00 123 05/05/17 05:00 125 20 111/75 100 05/05/17 04:05 100 40 05/05/17 04:00 100.8 137 19 113/66 100 05/05/17 04:00 40 05/05/17 04:00 137 05/05/17 03:00 100.8 123 20 100 05/05/17 02:00 123 05/05/17 02:00 100.2 123 16 103/73 100 05/05/17 01:00 05/05/17 00:59 100 40 05/05/17 00:00 120 05/05/17 00:00 40 05/05/17 00:00 100.1 120 15 99/65 100 05/04/17 23:00 99.9 123 17 110/62 99 05/04/17 22:00 99.9 124 17 90/58 99 05/04/17 22:00 125 05/04/17 21:00 99.3 119 17 93/58 99 05/04/17 20:46 100 40 05/04/17 20:00 98.1 117 14 84/54 100 05/04/17 20:00 117 05/04/17 20:00 50 05/04/17 18:00 121 05/04/17 18:00 96.7 121 16 85/64 100 05/04/17 17:30 96.4 121 16 91/61 100 05/04/17 17:00 94.9 120 16 87/58 100 05/04/17 16:00 50 05/04/17 16:00 117 05/04/17 16:00 95.4 117 16 92/57 100 05/04/17 15:00 94.8 118 16 91/60 100 05/04/17 14:55 100 40 05/04/17 14:00 50 05/04/17 14:00 109 05/04/17 14:00 94.9 109 16 90/53 100 05/04/17 13:00 100 100 05/04/17 05/04/17 05/05/17 15:00 23:00 07:00 Intake Total 1887 ml 1481 ml 3447 ml Output Total 450 ml 30 ml 500 ml Balance 1437 ml 1451 ml 2947 ml Intake IV Total 1887 ml 1481 ml 3447 ml Output Urine Total 450 ml 30 ml 500 ml # Bowel Movements 0 . Laboratory Tests Test 05/04/17 05/05/17 05/05/17 10:00 04:15 10:40 White Blood Count 42.8 TH/MM3 10.7 TH/MM3 11.2 TH/MM3 Red Blood Count 5.84 MIL/MM3 4.43 MIL/MM3 4.14 MIL/MM3 Hemoglobin 16.7 GM/DL 12.8 GM/DL 12.2 GM/DL Hematocrit 54.8 % 37.7 % 34.8 % Mean Corpuscular Volume 93.9 FL 85.1 FL 84.1 FL Mean Corpuscular Hemoglobin 28.6 PG 29.0 PG 29.4 PG Mean Corpuscular Hemoglobin 30.5 % 34.1 % 34.9 % Concent Red Cell Distribution Width 16.9 % 14.5 % 14.5 % Platelet Count 284 TH/MM3 47 TH/MM3 37 TH/MM3 Mean Platelet Volume 8.2 FL 7.9 FL 8.3 FL Neutrophils (%) (Auto) 81.4 % 83.2 % 78.5 % Lymphocytes (%) (Auto) 5.9 % 1.9 % 6.7 % Monocytes (%) (Auto) 12.4 % 14.7 % 14.7 % Eosinophils (%) (Auto) 0.2 % 0.1 % 0.1 % Basophils (%) (Auto) 0.1 % 0.1 % 0.0 % Neutrophils # (Auto) 34.8 TH/MM3 8.9 TH/MM3 8.8 TH/MM3 Lymphocytes # (Auto) 2.5 TH/MM3 0.2 TH/MM3 0.8 TH/MM3 Monocytes # (Auto) 5.3 TH/MM3 1.6 TH/MM3 1.7 TH/MM3 Eosinophils # (Auto) 0.1 TH/MM3 0.0 TH/MM3 0.0 TH/MM3 Basophils # (Auto) 0.1 TH/MM3 0.0 TH/MM3 0.0 TH/MM3 CBC Comment AUTO DIFF AUTO DIFF AUTO DIFF Differential Total Cells 100 100 Counted Neutrophils % (Manual) 70 % 39 % Band Neutrophils % 7 % 46 % Lymphocytes % 11 % 4 % Monocytes % 11 % 11 % Eosinophils % 1 % Neutrophils # (Manual) 33.0 TH/MM3 9.5 TH/MM3 Differential Comment FINAL DIFF AUTO DIFF FINAL DIFF MANUAL CONFIRMED MANUAL Platelet Estimate NORMAL LOW LOW Platelet Morphology Comment NORMAL NORMAL NORMAL Jones-[place]. [place] Bodies PRESENT Crenated Cell 1+ Ovalocytes 1+ Laboratory Tests Test 05/04/17 05/04/17 05/04/17 05/04/17 10:00 10:25 11:20 15:37 Sodium Level 142 MEQ/L Potassium Level 4.7 MEQ/L Chloride Level 111 MEQ/L Carbon Dioxide Level LESS THAN 5.0 MEQ/L Anion Gap 26 MEQ/L Blood Urea Nitrogen 21 MG/DL Creatinine 1.39 MG/DL Estimat Glomerular Filtration 52 ML/MIN Rate Random Glucose 445 MG/DL Calcium Level 9.5 MG/DL Phosphorus Level 7.0 MG/DL Magnesium Level 2.8 MG/DL Total Bilirubin 0.6 MG/DL Aspartate Amino Transf 14 U/L (AST/SGOT) Alanine Aminotransferase 13 U/L (ALT/SGPT) Alkaline Phosphatase 72 U/L Total Creatine Kinase 55 U/L Troponin I LESS THAN 0.02 NG/ML Total Protein 5.8 GM/DL Albumin 3.0 GM/DL Thyroid Stimulating Hormone 0.868 uIU/ML 3rd Gen Ammonia 90 MCMOL/L Lactic Acid Level 6.5 mmol/L 3.0 mmol/L Test 05/04/17 05/04/17 05/04/17 05/05/17 18:27 18:37 22:30 00:19 Sodium Level 148 MEQ/L 152 MEQ/L Potassium Level 3.1 MEQ/L 2.4 MEQ/L Chloride Level 117 MEQ/L 112 MEQ/L Carbon Dioxide Level 6.0 MEQ/L 26.8 MEQ/L Anion Gap 25 MEQ/L 13 MEQ/L Blood Urea Nitrogen 23 MG/DL 24 MG/DL Creatinine 1.38 MG/DL 1.44 MG/DL Estimat Glomerular Filtration 53 ML/MIN 50 ML/MIN Rate Random Glucose 290 MG/DL 268 MG/DL Calcium Level 9.1 MG/DL 8.4 MG/DL Phosphorus Level 1.0 MG/DL 0.2 MG/DL Magnesium Level 2.3 MG/DL 1.9 MG/DL Lactic Acid Level 3.4 mmol/L 3.5 mmol/L Test 05/05/17 05/05/17 04:15 09:07 Sodium Level 152 MEQ/L 152 MEQ/L Potassium Level 3.3 MEQ/L 2.8 MEQ/L Chloride Level 118 MEQ/L 117 MEQ/L Carbon Dioxide Level 21.3 MEQ/L 21.0 MEQ/L Anion Gap 13 MEQ/L 14 MEQ/L Blood Urea Nitrogen 23 MG/DL 24 MG/DL Creatinine 1.49 MG/DL 1.46 MG/DL Estimat Glomerular Filtration 48 ML/MIN 50 ML/MIN Rate Random Glucose 203 MG/DL 195 MG/DL Lactic Acid Level 3.2 mmol/L 3.4 mmol/L Calcium Level 9.1 MG/DL 8.8 MG/DL Phosphorus Level 0.5 MG/DL 1.1 MG/DL Magnesium Level 2.1 MG/DL 2.0 MG/DL Total Bilirubin 0.8 MG/DL Aspartate Amino Transf 22 U/L (AST/SGOT) Alanine Aminotransferase 14 U/L (ALT/SGPT) Alkaline Phosphatase 39 U/L Ammonia 40 MCMOL/L Total Protein 4.9 GM/DL Albumin 2.6 GM/DL Microbiology Date/Time Procedure Status Source Growth 05/04/17 10:20 Aerobic Blood Culture - Preliminary Resulted Blood Peripheral NO GROWTH IN 1 DAY 05/04/17 10:20 Anaerobic Blood Culture - Preliminary Resulted Blood Peripheral NO GROWTH IN 1 DAY 05/04/17 10:25 Aerobic Blood Culture - Preliminary Resulted Blood Peripheral NO GROWTH IN 1 DAY 05/04/17 10:25 Anaerobic Blood Culture - Preliminary Resulted Blood Peripheral NO GROWTH IN 1 DAY Imaging Last 72 hours Impressions Chest X-Ray 05/05/17 0000 Signed Impressions: Service Date/Time: Friday, May 05, 2017 03:24 - CONCLUSION: 1. New right subclavian central venous catheter with tip at the atriocaval junction. No pneumothorax or other acute complication demonstrated. 2. Unchanged endotracheal tube and nasogastric tube. 3. No infiltrate. 4. Old left rib fractures. Evelio Frankel MD Head CT 05/04/17 0953 Signed Impressions: Service Date/Time: Thursday, May 04, 2017 11:01 - CONCLUSION: Negative for an acute process.. Han Aguilera MD FACR Chest X-Ray 05/04/17 0953 Signed Impressions: Service Date/Time: Thursday, May 04, 2017 10:05 - CONCLUSION: Sable chest with ET tube in good position. The patient does have a history melanoma. Han Aguilera MD FACR Abdomen/Pelvis CT 05/04/17 0000 Signed Impressions: Service Date/Time: Thursday, May 04, 2017 13:06 - CONCLUSION: 1. 2.2 cm simple cyst arising from the lower pole right kidney. 2. No definite abnormality to explain the patient's abdominal pain identified. 3. Degenerative changes within the lumbar spine. Salomon Aguilera MD Physical Exam GENERAL: Patient is a thin, well-developed patient, sedated on the vent, not in respiratory distress. SKIN: Cool and dry. No generalized rash. Has mottling in both LE. HEAD: Atraumatic. Normocephalic. No temporal wasting, or tenderness. EYES: [place] conjunctiva. No petechia or hemorrhage. Pupils equal, round and reactive to light. No scleral icterus. No injection or drainage. EARS, NOSE AND THROAT: Nose without bleeding or purulent nasal discharge. Dry mucous membranes. He is orally intubated NECK: Trachea midline. Supple and not tender, no meningeal signs CARDIOVASCULAR: Regular rate and rhythm. No murmurs, rubs or gallops heard RESPIRATORY: Clear to auscultation. Breath sounds equal bilaterally. No rales , wheezing or rhonchi ABDOMEN: Soft, nondistended, started moving when I palpated his abdomen, but not guarding. Bowel sounds present and normoactive. EXTREMITIES: No clubbing, cyanosis, or edema. Cool feet. NEUROLOGICAL: Sedated PSYCHIATRIC: Unable to assess LINE: No evidence of infection : Gallegos in place, urine looks clear Assessment & Plan Remarks IMPRESSION Sepsis on presentation, with hypothermia, altered mental status, tachycardia, elevated lactic acid - source? to be determined - ?due to metastatic melanoma Known metastatic melanoma with mets to brain and L axilla, has new lesions on recent MRI DM, DKA - ?infection - ?worsen by steroids Respiratory failure due to decreased LOC, CXR is clear Encephalopathy, etiology? - ?due to HRBP mets - ?did he have seizure - he received hydrocortisone last admission, ?try decadron RECOMMENDATION Follow C/S Continue empiric Abx: Vanco and Zosyn ?Repeat brain MRI ?Try decadron On Rx for DKA Monitor progress Repeat BC Sputum G/S C/S Palliative medicine to speak with Very poor prognosis from his metastatic melanoma D/W Sylvia Teran MD May 05, 2017 12:49
[2017-05-05 20:30] LABS: BETA-HYDROXYBUTYRATE 2.77 MMOL/L (0.00-0.39)
[2017-05-06] VITALS (21 sets, daily range): BP systolic 105–137; BP diastolic 68–83; PULSE 96–123; RESP 6–18; O2SAT 0–100
[2017-05-06] MEDS: INSULIN NovoLIN REGULAR SUPPLEMENTAL SCALE SQ SCH ×2 (01:10→05:15)
[2017-05-06] MEDS: RESP: ALBUTEROL 2.5 MG/IPRATROPIUM 0.5 MG NEB (SCH) INH ×2 (03:32→08:11)
[2017-05-06] MEDS: CHLORHEXIDINE GLUCONATE 2 % 1 PACK (2 CLOTHS) TOP SCH (04:00)
[2017-05-06] MEDS: PIPERACIL-TAZO 4.5 GM PREMIX 100 ML IV SCH ×2 (04:11→10:51)
[2017-05-06] MEDS: PROPOFOL 1000 MG/100 ML INJ 100 ML IV SCH (04:24)
[2017-05-06 04:31] LABS: AUTOMATED NEUTROPHIL # 8.9 TH/MM3 (1.8-7.7); BASOPHIL % 0.1 % (0.0-2.0); BICARBONATE 23.9 MEQ/L (21.0-32.0); EOSINOPHIL % 0.2 % (0.0-4.0); HEMATOCRIT 33.7 % (39.0-51.0); LYMPH % 6.4 % (9.0-44.0); LYMPHOCYTE # 0.7 TH/MM3 (1.0-4.8); MAGNESIUM 2.1 MG/DL (1.5-2.5); MEAN CELL VOLUME 84.5 FL (80.0-100.0); MEAN CORPUSCULAR HEMOGLOBIN 29.7 PG (27.0-34.0); MEAN CORPUSCULAR HGB CONC 35.2 % (32.0-36.0); MONO % 9.6 % (0.0-8.0); NEUT % 83.7 % (16.0-70.0); PLATELET COUNT 33 TH/MM3 (150-450); POTASSIUM 3.3 MEQ/L (3.5-5.1); RED BLOOD COUNT 3.98 MIL/MM3 (4.50-5.90); RED CELL DISTRIBUTION WIDTH 15.1 % (11.6-17.2); WHITE BLOOD COUNT 10.6 TH/MM3 (4.0-11.0)
[2017-05-06 04:32] LABS: HEMO FLAGS AUTO DIFF
[2017-05-06] MEDS: FREE WATER G-TUBE SCH (05:37)
[2017-05-06] MEDS: DEXTROSE 5% IN WATE 1000ML INJ 1,000 ML IV SCH (05:37)
[2017-05-06 07:41] LABS: BANDS 17 % (0-6); NEUTROPHIL # MANUAL DIFF 8.9 TH/MM3 (1.8-7.7); POLYS (SEG NEUTROPHILS) 67 % (16-70); WBC DIFF SAMPLE 100
[2017-05-06 07:42] LABS: PLATELET ESTIMATE SMEAR LOW (NORMAL); PLATELET MORPHOLOGY NORMAL (NORMAL); SCAN/DIFF FINAL DIFF MANUAL
[2017-05-06 07:43] LABS: OVALOCYTES 1+ (NORMAL)
[2017-05-06] MEDS ORDERED: GLUCAGON 1 MG/ML VIAL OTHER PRN (07:45)
[2017-05-06] MEDS ORDERED: DEXTROSE 50% IN WATER 50 ML VIAL(D50) IV PRN (07:45)
--- NOTE | 2017-05-06 08:02 | HHI.CCPN ---
Subjective Remarks/Hospital Course Patient is a 56-year-old male with a past medical history of metastatic melanoma to the brain and left axilla, diabetes mellitus, anxiety/depression, who presented to [facility] ED via [facility] from a nursing facility for altered mental status. The patient was last seen normal yesterday. He was unresponsive and not responding to any verbal stimuli. The patient was given Narcan 2 mg IV without any significant effect. He was recently discharged from the hospital on May 02 after he was admitted back on April 25 for DKA and dehydration. Due to altered mental status the patient was subsequently intubated with etomidate and succinylcholine and placed on full mechanical ventilation. On arrival to the ER he was hypothermic with temperature of 93.8 rectally, tachycardiac with heart rate of 107 and a blood pressure of 107/65. Post intubation his ABG showed severe metabolic acidosis with a pH of 6.92, CO2 16, PAO2 495, bicarb 3 and saturation 98% on assist control ventilation with a rate of 16, tidal volume 500, PEEP of 5 and FIO2 100%. His laboratory data was significant for lactic acidemia with lactic acid level 6.5. In addition the patient was found to be in DKA with a blood sugar of 445, anion gap of 26 and beta-hydroxybutyrate of 10.1. The patient was noted to have significant leukocytosis with a WBC of 42.8. In the ER he was given one amp of sodium bicarb, 6 units IV push of regular insulin, vancomycin, Zosyn and 2 liters of crystalloids. He is about to go on an insulin drip per DKA protocol. CT scan of the brain was obtained in the ER which was negative for acute process. He also had a chest x-ray post intubation which showed ET tube in good position and clear lungs. A CT scan of the abdomen and pelvis was performed, however, results are pending during the time of this dictation. On his prior admission he had CT abdomen and pelvis on May 01 which showed no metastatic disease to the abdomen and pelvis, cirrhosis of the liver as well as portal hypertension. CT chest on May 01 as well showed focal patchiness within the right lower lobe consistent with a possible pneumonia, otherwise no definite metastatic disease to the chest. An MRI of the brain was obtained as well on May 01 which showed brain mets. 05/05 Patient remains sedated with Diprivan and intubated. On Insulin drip 12u/hr , bicarb drip. T:101.3 05/06 Patient is sedated with Diprivan and intubated. Off Insulin and bicarb drips. T: 100.0 Objective Vital Signs Date Time Temp Pulse Resp B/P Pulse Ox O2 Delivery O2 Flow Rate FiO2 05/06/17 07:00 100.4 114 18 112/74 99 05/06/17 04:00 35 05/04/17 12:30 Ventilator Intake and Output 05/05/17 05/05/17 05/06/17 08:00 16:00 00:00 Intake Total 3447 ml 1789 ml 1091 ml Output Total 500 ml 400 ml 475 ml Balance 2947 ml 1389 ml 616 ml Result Diagram: 05/06/17 0350 05/06/17 0350 Other Results Laboratory Tests Test 05/05/17 05/05/17 05/05/17 05/05/17 09:07 10:26 10:40 19:45 Sodium Level 152 MEQ/L Potassium Level 2.8 MEQ/L Chloride Level 117 MEQ/L Carbon Dioxide Level 21.0 MEQ/L Anion Gap 14 MEQ/L Blood Urea Nitrogen 24 MG/DL Creatinine 1.46 MG/DL Estimat Glomerular Filtration 50 ML/MIN Rate Random Glucose 195 MG/DL Lactic Acid Level 3.4 mmol/L Calcium Level 8.8 MG/DL Phosphorus Level 1.1 MG/DL 1.7 MG/DL Magnesium Level 2.0 MG/DL Blood Gas Puncture Site LT RADIAL Blood Gas Patient Temperature 98.6 Blood Gas HCO3 20 mmol/L Blood Gas Base Excess -3.2 mmol/L Blood Gas Oxygen Saturation 97 % Arterial Blood pH 7.48 Arterial Blood Partial 27 mmHg Pressure CO2 Arterial Blood Partial 204 mmHg Pressure O2 Arterial Blood Oxygen Content 16.8 Vol % Arterial Blood 1.7 % Carboxyhemoglobin Arterial Blood Methemoglobin 1.2 % Blood Gas Hemoglobin 12.0 G/DL Oxygen Delivery Device VENTILATOR Blood Gas Ventilator Setting 500/12/40/5 Blood Gas Inspired Oxygen 40 % White Blood Count 11.2 TH/MM3 Red Blood Count 4.14 MIL/MM3 Hemoglobin 12.2 GM/DL Hematocrit 34.8 % Mean Corpuscular Volume 84.1 FL Mean Corpuscular Hemoglobin 29.4 PG Mean Corpuscular Hemoglobin 34.9 % Concent Red Cell Distribution Width 14.5 % Platelet Count 37 TH/MM3 Mean Platelet Volume 8.3 FL Neutrophils (%) (Auto) 78.5 % Lymphocytes (%) (Auto) 6.7 % Monocytes (%) (Auto) 14.7 % Eosinophils (%) (Auto) 0.1 % Basophils (%) (Auto) 0.0 % Neutrophils # (Auto) 8.8 TH/MM3 Lymphocytes # (Auto) 0.8 TH/MM3 Monocytes # (Auto) 1.7 TH/MM3 Eosinophils # (Auto) 0.0 TH/MM3 Basophils # (Auto) 0.0 TH/MM3 CBC Comment AUTO DIFF Differential Total Cells 100 Counted Neutrophils % (Manual) 39 % Band Neutrophils % 46 % Lymphocytes % 4 % Monocytes % 11 % Neutrophils # (Manual) 9.5 TH/MM3 Differential Comment FINAL DIFF MANUAL Platelet Estimate LOW Platelet Morphology Comment NORMAL Ovalocytes 1+ Prothrombin Time 15.3 SEC Prothromb Time International 1.4 RATIO Ratio Fibrinogen 214 mg/dL B-Hydroxybutyrate 2.77 MMOL/L Test 05/06/17 05/06/17 00:30 03:50 Potassium Level 3.1 MEQ/L 3.3 MEQ/L White Blood Count 10.6 TH/MM3 Red Blood Count 3.98 MIL/MM3 Hemoglobin 11.8 GM/DL Hematocrit 33.7 % Mean Corpuscular Volume 84.5 FL Mean Corpuscular Hemoglobin 29.7 PG Mean Corpuscular Hemoglobin 35.2 % Concent Red Cell Distribution Width 15.1 % Platelet Count 33 TH/MM3 Mean Platelet Volume 9.1 FL Neutrophils (%) (Auto) 83.7 % Lymphocytes (%) (Auto) 6.4 % Monocytes (%) (Auto) 9.6 % Eosinophils (%) (Auto) 0.2 % Basophils (%) (Auto) 0.1 % Neutrophils # (Auto) 8.9 TH/MM3 Lymphocytes # (Auto) 0.7 TH/MM3 Monocytes # (Auto) 1.0 TH/MM3 Eosinophils # (Auto) 0.0 TH/MM3 Basophils # (Auto) 0.0 TH/MM3 CBC Comment AUTO DIFF Differential Total Cells 100 Counted Neutrophils % (Manual) 67 % Band Neutrophils % 17 % Lymphocytes % 8 % Monocytes % 8 % Neutrophils # (Manual) 8.9 TH/MM3 Differential Comment FINAL DIFF MANUAL Platelet Estimate LOW Platelet Morphology Comment NORMAL Ovalocytes 1+ Sodium Level 144 MEQ/L Chloride Level 109 MEQ/L Carbon Dioxide Level 23.9 MEQ/L Anion Gap 11 MEQ/L Blood Urea Nitrogen 15 MG/DL Creatinine 1.13 MG/DL Estimat Glomerular Filtration 67 ML/MIN Rate Random Glucose 390 MG/DL Calcium Level 8.3 MG/DL Phosphorus Level 2.8 MG/DL Magnesium Level 2.1 MG/DL B-Hydroxybutyrate 2.45 MMOL/L Imaging Last Impressions Chest X-Ray 05/05/17 0000 Signed Impressions: Service Date/Time: Friday, May 05, 2017 03:24 - CONCLUSION: 1. New right subclavian central venous catheter with tip at the atriocaval junction. No pneumothorax or other acute complication demonstrated. 2. Unchanged endotracheal tube and nasogastric tube. 3. No infiltrate. 4. Old left rib fractures. Evelio Frankel MD Head CT 05/04/17 0953 Signed Impressions: Service Date/Time: Thursday, May 04, 2017 11:01 - CONCLUSION: Negative for an acute process.. Han Aguilera MD FACR Abdomen/Pelvis CT 05/04/17 0000 Signed Impressions: Service Date/Time: Thursday, May 04, 2017 13:06 - CONCLUSION: 1. 2.2 cm simple cyst arising from the lower pole right kidney. 2. No definite abnormality to explain the patient's abdominal pain identified. 3. Degenerative changes within the lumbar spine. Salomon Aguilera MD Objective Remarks GENERAL: Patient is 56 yo critically ill intubated and sedated SKIN: Warm and dry. HEAD: Normocephalic. EYES: No scleral icterus. No injection or drainage. NECK: Supple, trachea midline. No JVD or lymphadenopathy. CARDIOVASCULAR: Regular rate and rhythm without murmurs, gallops, or rubs. RESPIRATORY: Breath sounds equal bilaterally. No accessory muscle use. GASTROINTESTINAL: Abdomen soft, non-tender, nondistended. MUSCULOSKELETAL: No cyanosis, or edema. Neuro: Sedated, intubated A/P Assessment and Plan 1. VDRF. 2. Diabetic ketoacidosis..resolved 3. AG metabolic acidosis...closed 4. Lactic acidemia...trending down 5. Acute kidney injury. 6. Leukocytosis. 7. Encephalopathy. 8. Metastatic melanoma to brain and left axilla. 9. History of hepatitis B. 10. Anemia, Thrombocytopenia ( likely 2nd sepsis, ? DIC) PLAN Neuro: On Diprivan infusion for sedation, daily sedation vacation. Monitor neuro status on lactulose 15 mL t.i.d. Ammonia level 40 05/05 CT brain in the ED negative for acute disease; MRI brain from 05/01 showed brain mets with surrounding vasogenic edema. Check EEG and neuro eval. Pulm: Continue with vent support and maintain sats > 92%. Bronchodilators, ICU vent bundle. Check ABG Start SBT daily as deanne. CV: Place on Lopressor 25mg Q12- Monitor HR and BP and maintain MAP > 65 mmHg. Lactic acid trending down. Echo from July 2016 showed an EF of 55-60% with no regional wall motion abnormalities. : Monitor renal function, I's and O's and avoid nephrotoxins. d/c IVF Renal function is better with Cr: 1.13 from 1.46 yesterday GI: Protonix 40 mg IV daily for GI prophylaxis. On tube feeds- Jevity 1.5 with goal rate 45ml/hr CT abd/pelvis: No acute abd. abnormalities ID: Continue with abx(vancomycin and Zosyn)monitor for signs of infections( fever and WBC). ID service is following- Follow up on BC from 05/04- [facility] Endo: Increase SSI to medium scale and increase Levemir 10units BID TSH level measured at 0.86. Heme: Monitor CBC and coags. Oncology service is following. Patient was seen by radiation oncology on previous admission and was recommended stereotactic radiotherapy as outpatient. GI prophylaxis with Protonix 40 mg daily and DVT prophylaxis with SCDs. Not on chemical AC prophylaxis 2nd brain mets and thrombocytopenia. Palliative service is following. Overall prognosis is poor and Oncology is recommending hospice . Lines: Right subclavian central line placed 05/05 Addendum: Dr. Lofton spoke to patient's and she decided to go with hospice and transition to comfort care. CCT 30 mins. Sourav Brink MD May 06, 2017 08:02
[2017-05-06 08:07] LABS: BLOOD GAS BASE EXCESS -1.5 mmol/L (-2-2); BLOOD GAS CARBOXYHEMOGLOBIN 1.6 % (0-4); BLOOD GAS HCO3 21 mmol/L (22-26); BLOOD GAS METHEMOGLOBIN 1.3 % (0-2); BLOOD GAS O2 HGB SATURATION 97 % (90-100); BLOOD GAS OXYGEN CONTENT 16.6 Vol % (12.0-20.0); BLOOD GAS PCO2 27 mmHg (38-42); BLOOD GAS PO2 174 mmHg (61-120); BLOOD GAS TOTAL HGB 11.9 G/DL (12.0-16.0); TEMP CORR TO 98.6
[2017-05-06 08:08] LABS: CRITICAL VALUE YES; DRAW SITE LT RADIAL; FIO2 45 %; NUMBER OF ARTERIAL PUNCTURES 1; OXYGEN DEVICE VENTILATOR; STAT NO; ULNAR PULSE PRESENT; VENT SETTINGS AC10/450/+5
--- NOTE | 2017-05-06 08:45 | PD.ONC.PN ---
Subjective Subjective Remarks Tmax 100.4 overnight. Remains intubated Sedation off, remains obtunded. Objective Data Date Time Temp Pulse Resp B/P Pulse Ox O2 Delivery O2 Flow Rate FiO2 05/06/17 08:18 35 05/06/17 08:04 100 35 05/06/17 07:00 100.4 114 18 112/74 99 05/06/17 06:00 100.2 118 17 119/78 100 05/06/17 06:00 118 05/06/17 05:00 100.0 123 17 132/81 100 05/06/17 04:00 112 05/06/17 04:00 35 05/06/17 04:00 99.7 112 16 137/83 100 05/06/17 03:57 100 35 05/06/17 03:00 99.3 110 14 111/79 100 05/06/17 02:00 99.5 104 18 105/68 99 05/06/17 02:00 104 05/06/17 01:00 99.5 112 16 117/78 100 05/06/17 00:00 105 05/06/17 00:00 35 05/06/17 00:00 99.5 105 17 108/73 100 05/05/17 23:35 100 35 05/05/17 23:00 99.7 112 17 121/80 100 05/05/17 22:00 111 05/05/17 22:00 99.5 111 15 120/73 100 05/05/17 21:00 98.6 108 17 98/64 100 05/05/17 20:38 100 35 05/05/17 20:00 40 05/05/17 20:00 86 05/05/17 20:00 99.1 104 17 104/70 100 05/05/17 19:00 98.6 102 17 102/68 100 05/05/17 18:30 99.1 102 17 102/70 100 05/05/17 18:00 99.3 104 18 101/67 100 05/05/17 18:00 104 05/05/17 17:00 99.5 104 19 103/71 100 05/05/17 16:30 99.9 104 18 100/71 99 05/05/17 16:00 99.6 107 19 99/67 99 05/05/17 16:00 40 05/05/17 16:00 107 05/05/17 15:30 100.2 108 16 112/70 100 05/05/17 15:30 99 35 05/05/17 15:00 100.4 109 13 94/69 99 05/05/17 14:30 100.4 113 15 92/66 99 05/05/17 14:00 100.2 120 13 131/81 100 05/05/17 14:00 120 05/05/17 13:26 100 35 05/05/17 13:00 100.9 116 14 111/79 100 05/05/17 12:15 35 05/05/17 12:07 35 05/05/17 12:00 40 05/05/17 12:00 124 05/05/17 12:00 100.6 124 18 115/83 100 05/05/17 11:00 100.4 123 18 104/73 100 05/05/17 10:52 100 40 05/05/17 10:30 100.8 120 16 106/74 100 05/05/17 10:00 100.9 111 19 90/63 99 05/05/17 10:00 111 05/05/17 09:30 100.9 122 17 113/80 100 05/05/17 09:00 100.9 119 16 110/83 100 05/06/17 05/06/17 05/06/17 07:00 15:00 23:00 Intake Total 1156 ml Output Total 950 ml Balance 206 ml Result Diagram: 05/06/17 0350 05/06/17 0350 Laboratory Results Laboratory Tests Test 05/05/17 05/05/17 05/05/17 05/05/17 09:07 10:26 10:40 19:45 Sodium Level 152 MEQ/L Potassium Level 2.8 MEQ/L Chloride Level 117 MEQ/L Carbon Dioxide Level 21.0 MEQ/L Anion Gap 14 MEQ/L Blood Urea Nitrogen 24 MG/DL Creatinine 1.46 MG/DL Estimat Glomerular Filtration 50 ML/MIN Rate Random Glucose 195 MG/DL Lactic Acid Level 3.4 mmol/L Calcium Level 8.8 MG/DL Phosphorus Level 1.1 MG/DL 1.7 MG/DL Magnesium Level 2.0 MG/DL Blood Gas Puncture Site LT RADIAL Blood Gas Patient Temperature 98.6 Blood Gas HCO3 20 mmol/L Blood Gas Base Excess -3.2 mmol/L Blood Gas Oxygen Saturation 97 % Arterial Blood pH 7.48 Arterial Blood Partial 27 mmHg Pressure CO2 Arterial Blood Partial 204 mmHg Pressure O2 Arterial Blood Oxygen Content 16.8 Vol % Arterial Blood 1.7 % Carboxyhemoglobin Arterial Blood Methemoglobin 1.2 % Blood Gas Hemoglobin 12.0 G/DL Oxygen Delivery Device VENTILATOR Blood Gas Ventilator Setting 500/12/40/5 Blood Gas Inspired Oxygen 40 % White Blood Count 11.2 TH/MM3 Red Blood Count 4.14 MIL/MM3 Hemoglobin 12.2 GM/DL Hematocrit 34.8 % Mean Corpuscular Volume 84.1 FL Mean Corpuscular Hemoglobin 29.4 PG Mean Corpuscular Hemoglobin 34.9 % Concent Red Cell Distribution Width 14.5 % Platelet Count 37 TH/MM3 Mean Platelet Volume 8.3 FL Neutrophils (%) (Auto) 78.5 % Lymphocytes (%) (Auto) 6.7 % Monocytes (%) (Auto) 14.7 % Eosinophils (%) (Auto) 0.1 % Basophils (%) (Auto) 0.0 % Neutrophils # (Auto) 8.8 TH/MM3 Lymphocytes # (Auto) 0.8 TH/MM3 Monocytes # (Auto) 1.7 TH/MM3 Eosinophils # (Auto) 0.0 TH/MM3 Basophils # (Auto) 0.0 TH/MM3 CBC Comment AUTO DIFF Differential Total Cells 100 Counted Neutrophils % (Manual) 39 % Band Neutrophils % 46 % Lymphocytes % 4 % Monocytes % 11 % Neutrophils # (Manual) 9.5 TH/MM3 Differential Comment FINAL DIFF MANUAL Platelet Estimate LOW Platelet Morphology Comment NORMAL Ovalocytes 1+ Prothrombin Time 15.3 SEC Prothromb Time International 1.4 RATIO Ratio Fibrinogen 214 mg/dL B-Hydroxybutyrate 2.77 MMOL/L Test 05/06/17 05/06/17 05/06/17 00:30 03:50 08:00 Potassium Level 3.1 MEQ/L 3.3 MEQ/L White Blood Count 10.6 TH/MM3 Red Blood Count 3.98 MIL/MM3 Hemoglobin 11.8 GM/DL Hematocrit 33.7 % Mean Corpuscular Volume 84.5 FL Mean Corpuscular Hemoglobin 29.7 PG Mean Corpuscular Hemoglobin 35.2 % Concent Red Cell Distribution Width 15.1 % Platelet Count 33 TH/MM3 Mean Platelet Volume 9.1 FL Neutrophils (%) (Auto) 83.7 % Lymphocytes (%) (Auto) 6.4 % Monocytes (%) (Auto) 9.6 % Eosinophils (%) (Auto) 0.2 % Basophils (%) (Auto) 0.1 % Neutrophils # (Auto) 8.9 TH/MM3 Lymphocytes # (Auto) 0.7 TH/MM3 Monocytes # (Auto) 1.0 TH/MM3 Eosinophils # (Auto) 0.0 TH/MM3 Basophils # (Auto) 0.0 TH/MM3 CBC Comment AUTO DIFF Differential Total Cells 100 Counted Neutrophils % (Manual) 67 % Band Neutrophils % 17 % Lymphocytes % 8 % Monocytes % 8 % Neutrophils # (Manual) 8.9 TH/MM3 Differential Comment FINAL DIFF MANUAL Platelet Estimate LOW Platelet Morphology Comment NORMAL Ovalocytes 1+ Sodium Level 144 MEQ/L Chloride Level 109 MEQ/L Carbon Dioxide Level 23.9 MEQ/L Anion Gap 11 MEQ/L Blood Urea Nitrogen 15 MG/DL Creatinine 1.13 MG/DL Estimat Glomerular Filtration 67 ML/MIN Rate Random Glucose 390 MG/DL Calcium Level 8.3 MG/DL Phosphorus Level 2.8 MG/DL Magnesium Level 2.1 MG/DL B-Hydroxybutyrate 2.45 MMOL/L Blood Gas Puncture Site LT RADIAL Blood Gas Patient Temperature 98.6 Blood Gas HCO3 21 mmol/L Blood Gas Base Excess -1.5 mmol/L Blood Gas Oxygen Saturation 97 % Arterial Blood pH 7.51 Arterial Blood Partial 27 mmHg Pressure CO2 Arterial Blood Partial 174 mmHg Pressure O2 Arterial Blood Oxygen Content 16.6 Vol % Arterial Blood 1.6 % Carboxyhemoglobin Arterial Blood Methemoglobin 1.3 % Blood Gas Hemoglobin 11.9 G/DL Oxygen Delivery Device VENTILATOR Blood Gas Ventilator Setting AC10/450/+5 Blood Gas Inspired Oxygen 45 % Culture Results Microbiology Date/Time Procedure Status Source Growth 05/04/17 10:20 Aerobic Blood Culture - Preliminary Resulted Blood Peripheral NO GROWTH IN 1 DAY 05/04/17 10:20 Anaerobic Blood Culture - Preliminary Resulted Blood Peripheral NO GROWTH IN 1 DAY 05/04/17 10:25 Aerobic Blood Culture - Preliminary Resulted Blood Peripheral NO GROWTH IN 1 DAY 05/04/17 10:25 Anaerobic Blood Culture - Preliminary Resulted Blood Peripheral NO GROWTH IN 1 DAY Imaging Studies Last 48 hours Impressions Chest X-Ray 05/05/17 0000 Signed Impressions: Service Date/Time: Friday, May 05, 2017 03:24 - CONCLUSION: 1. New right subclavian central venous catheter with tip at the atriocaval junction. No pneumothorax or other acute complication demonstrated. 2. Unchanged endotracheal tube and nasogastric tube. 3. No infiltrate. 4. Old left rib fractures. Evelio Frankel MD Head CT [id number]/04/[id number] Signed Impressions: Service Date/Time: Thursday, May 04, 2017 11:01 - CONCLUSION: Negative for an acute process.. Han Aguilera MD FACR Chest X-Ray [id number]/04/[id number] Signed Impressions: Service Date/Time: Thursday, May 04, 2017 10:05 - CONCLUSION: Sable chest with ET tube in good position. The patient does have a history melanoma. Han Aguilera MD FACR Administered Medications Medications (Trade) Dose Ordered Sig/Gregg Route PRN Reason Start Time Stop Time Status Last Admin Dose Admin Propofol 100 ml @ 0 mls/hr TITRATE IV 05/04/17 10:45 05/06/17 04:24 Potassium Chloride 100 ml @ 50 mls/hr Q2H PRN IV SEE LABEL COMMENTS 05/04/17 11:30 05/05/17 04:41 Potassium Chloride (KCl 20 Meq Premix Inj) 100 ml @ 50 mls/hr Q2H PRN IV SEE LABEL COMMENTS 05/04/17 11:30 05/04/17 12:21 Pantoprazole Sodium (Protonix Inj) 40 mg DAILY IV 05/05/17 09:00 05/05/17 09:48 Chlorhexidine Gluconate (Chlorhexidine 2% Cloth) 3 pack Taper DAILY@04 TOP 05/05/17 04:00 05/01/18 03:59 05/06/17 04:00 Senna/Docusate Sodium (Nancy-Colace) 1 tab BID PO 05/04/17 21:00 05/05/17 20:02 Lactulose 15 ml 15 ml TID PO 05/04/17 13:00 05/05/17 17:25 Piperacillin Sod/ Tazobactam Sod 100 ml @ 200 mls/hr Q8H IV 05/04/17 20:00 05/06/17 04:11 Vancomycin HCl 1000 mg/Sodium Chloride 250 ml @ 250 mls/hr Q24H IV 05/05/17 11:00 05/05/17 10:16 Potassium Chloride 100 ml @ 50 mls/hr Q2H PRN IV For Potassium 2.8 - 3.2 mEq/L 05/05/17 10:15 05/05/17 19:20 Potassium Phosphate/Sodium Chloride (Potassium Phosphate Inj/NS 250 ml Inj) 260 ml @ 42 mls/hr UNSCH PRN IV SEE LABEL COMMENTS 05/05/17 10:15 05/06/17 01:09 Objective Remarks GENERAL: Critically ill appearing male intubated lying supine in bed. Appears comfortable. SKIN: Warm and dry. HEAD: Normocephalic. EYES: No injection or drainage. NECK: Supple, trachea midline. CARDIOVASCULAR: Regular rate and rhythm without murmurs. RESPIRATORY: Breath sounds equal bilaterally. No accessory muscle use. GASTROINTESTINAL: Abdomen soft, non-tender, nondistended. EXTREMITIES: No cyanosis, or edema. SCD's to BLE. NEUROLOGICAL: Sedation turned off. Not waking up. 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 The pt's condition is quite poor. In terms of all of his co-morbidities and current extensive cancer a Hospice consult is most appropriate. 2. Dr Lofton has discussed with the pt's , and she is agreeable. 3. We will plan to withdraw with Hospice after the pt has been seen by a non garment sewing machine operator. Attending Statement The exam, history, and the medical decision-making described in the above note were completed with the assistance of the mid-level provider. I reviewed and agree with the findings presented. I attest that I had a [id number] encounter with the patient on the same day, and personally performed and documented my assessment and findings in the medical record. He remains very ill and it does not appear that he will be a candidate for further tx of the melanoma. I contacted the patient's and had a long conversation. The final decision is to consult hospice,have a non garment sewing machine operator see him and remove from the ventilator to allow a natural and at the same time make sure he is comfortable. This was discussed with Dr. Suarez. Yeimy Muro May 06, 2017 08:45 Meng Lofton MD May 06, 2017 20:02
[2017-05-06] MEDS ORDERED: INSULIN DETEMIR 100 UNITS/ML VIAL SQ SCH (09:00)
[2017-05-06] MEDS ORDERED: METOPROLOL TARTRATE 25 MG TAB PO SCH (09:00)
[2017-05-06] MEDS: DOCUSATE SODIUM 50 MG/SENNA 8.6 MG TAB PO SCH (09:15)
[2017-05-06] MEDS: PANTOPRAZOLE SODIUM 40 MG VIAL IV SCH (09:16)
[2017-05-06] MEDS: LACTULOSE SYRUP 20 GM/30 ML CUP PO SCH (09:16)
[2017-05-06] MEDS: VANCOMYCIN 1,000 MG/NS 250 ML IV SCH ×2 (10:51)
[2017-05-06] MEDS ORDERED: INSULIN NovoLIN REGULAR SUPPLEMENTAL SCALE SQ SCH (11:00)
[2017-05-06] MEDS ORDERED: MORPHINE SULFATE 8 MG/ML INJ IV PUSH ONE ×2 (11:30→11:45)
[2017-05-06] MEDS ORDERED: LORazepam 2 MG/ML VIAL IV ONE ×2 (11:30→11:45)
[2017-05-06] MEDS ORDERED: HYOSCYAMINE 0.125 MG TAB PO/SL ONE (11:30)
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
[2017-05-06] MEDS ORDERED: LORazepam 2 MG/ML VIAL IVS PRN (12:00)
[2017-05-06] MEDS ORDERED: FUROSEMIDE 20 MG/2 ML VIAL IV PRN (12:00)
[2017-05-06] MEDS ORDERED: MORPHINE SULFATE 8 MG/ML INJ IV PUSH PRN (12:00)
[2017-05-06] MEDS ORDERED: BISACODYL 10 MG SUPP RECTAL PRN (12:00)
[2017-05-06] MEDS ORDERED: ACETAMINOPHEN 650 MG SUPP RECTAL PRN (12:00)
[2017-05-06] MEDS ORDERED: LORazepam 2 MG/ML VIAL IV PRN (12:00)
[2017-05-06] MEDS ORDERED: MORPHINE SULFATE 4 MG/ML INJ IV PRN (12:00)
[2017-05-06] MEDS: MORPHINE SULFATE 8 MG/ML INJ IV PUSH SCH ×3 (13:45→19:52)
[2017-05-06] MEDS: LORazepam 2 MG/ML VIAL IV SCH ×3 (13:46→19:52)
[2017-05-06] MEDS: LORazepam 2 MG/ML VIAL IV PRN ×2 (17:43→21:33)
--- NOTE | 2017-05-06 22:34 | DEATH SUM ---
Summary Demographics Date Pronounced : May 06, 2017 Time Of : 22:31 Preliminary Cause of : Metastatic disease Micah Calderon MD May 06, 2017 22:34
[2017-05-07] MEDS ORDERED: PHARMACY ORDERED LAB ONE (10:45)
== END 2017-05-06 22:31 | disposition expired | DRG 871 ==
LOC: NEPC 09:36 → NEDA 11:44 → HIME 13:15
PROVIDERS: ADMIT Internal Medicine Critical Care Medicine; ATTEND Internal Medicine Critical Care Medicine
PROC: 0T9B70Z Drainage of Bladder with Drainage Device, Via Natural or Artificial Opening (ICD-10-PCS; principal; 2017-05-04)
PROC: 5A1945Z Respiratory Ventilation, 24-96 Consecutive Hours (ICD-10-PCS; 2017-05-04)
PROC: 0BH17EZ Insertion of Endotracheal Airway into Trachea, Via Natural or Artificial Opening (ICD-10-PCS; 2017-05-04)
PROC: 05H533Z Insertion of Infusion Device into Right Subclavian Vein, Percutaneous Approach (ICD-10-PCS; 2017-05-05)
DX: A41.9 Sepsis, unspecified organism (principal); J96.90 Respiratory failure, unspecified, unspecified whether with hypoxia or hypercapnia; D65 Disseminated intravascular coagulation [defibrination syndrome]; G93.40 Encephalopathy, unspecified; E13.10 Other specified diabetes mellitus with ketoacidosis without coma; Z99.11 Dependence on respirator [ventilator] status; C79.31 Secondary malignant neoplasm of brain; N17.9 Acute kidney failure, unspecified; R64 Cachexia; C77.9 Secondary and unspecified malignant neoplasm of lymph node, unspecified; E46 Unspecified protein-calorie malnutrition; K76.6 Portal hypertension; B19.10 Unspecified viral hepatitis B without hepatic coma; K74.60 Unspecified cirrhosis of liver; F32.9 Major depressive disorder, single episode, unspecified; R00.0 Tachycardia, unspecified; F41.9 Anxiety disorder, unspecified; G89.29 Other chronic pain; M54.5 Low back pain; Z51.5 Encounter for palliative care; Z92.3 Personal history of irradiation; Z79.84 Long term (current) use of oral hypoglycemic drugs; Z85.820 Personal history of malignant melanoma of skin; N28.1 Cyst of kidney, acquired; D64.9 Anemia, unspecified; R62.7 Adult failure to thrive; E87.6 Hypokalemia
CPT/HCPCS: 31500; 36556; 36600; 51702; 70450; 71010; 74176; 76937; 80048; 80053; 81001; 82010; 82140; 82550; 82805; 82948; 83605; 83735; 84100; 84132; 84443; 84484; 85007; 85025; 85027; 85384; 85610; 85730; 87040; 87641; 93005; 94002; 94003; 94640; 94664; 96374; 96375; C9113; J0330; J1815; J1817; J1940; J2060; J2250; J2270; J2310; J2543; J3370; J3480; J7030; J7050; J7070